=== PATIENT | male | born 1945 | race Caucasian/White ===

== ENCOUNTER → 2016-07-22 | Outpatient (CLI) | payer MEDICARE, OTHER ==
--- NOTE | 2016-07-31 23:56 | ECWPNPC ---
PATIENT NAME: SHANTEL REBOLLAR : 1945 GENDER: MALE VISIT DATE: 07/22/2016 DISCHARGE DATE: 07/22/16 1309 VISIT LOCKED DATE TIME: PHYSICIAN: MADINA CHENG RESOURCE: MADINA CHENG REASON FOR APPOINTMENT 1. BACK PAIN HISTORY OF PRESENT ILLNESS NEW PATIENT CONSULT: WHEN DID YOUR PAIN FIRST START? ____1966 , ACCIDENT AT WORK . BRIEFLY DESCRIBE HOW YOUR PAIN STARTED? LIFTING WHILE IN [place]. HOW DOES YOUR PAIN CHANGE WITH TIME? IT DOSENT. DOES YOUR PAIN AWAKEN YOU FROM SLEEP? NO. HOW MANY HOURS OF SLEEP DO YOU NORMALLY GET? 6 HOURS. ANY DIAGNOSTIC TESTING? BLOOD WORK, X-RAYS, MRI, CAT SCANS, EKG, STRESS TEST. FACILITY WHERE TESTS WERE DONE? ____[facility]. PAIN TREATMENT TREATMENT YES RELIEF FROM HEAT?YES CANCER HAVE YOU EVER HAD ANY TYPE OF CANCER?YES SITE OF CANCER? SKIN CANCER, FACE, SHOULDERS AND BACK NO. 71 YEAR OLD MALE PATIENT WITH HISTORY OF CHRONIC BACK PAIN. PATIENT DESCRIBES THE PAIN SHARP, TENDER, SORE, AND HAVING IT ALL THE TIME WITH A PAIN SCORE OF 4-5/10. PATIENT STATES HIS BACK PAIN STARTED MANY YEARS AGO WHEN HE WAS LIFTING SOMETHING AND HEARD A POP AND HAS HAD TROUBLE WITH BACK PAIN SINCE. PATIENT STATES THAT WITHIN THE LAST 4-5 MONTHS THE PAIN HAS BECOME SEVERE. AT THIS TIME THE PATIENT IS USING MELOXICAM, GABAPENTIN, AND HYDROCODONE WHICH HE STATES DOES AID IN PAIN RELIEF AND PRESCRIBED BY DR. LEAL. MR. REBOLLAR STATES THAT WALKING, STANDING, SITTING OR ANY ACTIVITY INCREASES THE PAIN IN HIS LOWER BACK. AT THIS TIME MEDICATION AND REST HELPS TO RELIEVE SOME OF THE PAIN. PATIENT DENIES UNEXPLAINABLE WEIGHT LOSS, FEVER, CHILLS, NEW CHANGES ON HIS URINARY OR BOWEL CONTROL. PAIN SCREENING: PATIENT HAS A COMPLAINT OF ACUTE OR CHRONIC PAIN YES FALL RISK SCREENING: SCREENING :NO FALLS IN THE PAST YEAR KEY INVENTORY: QUESTIONNAIRE ASSESSEDTBD SCORE VALUE CALCULATED TBD CURRENT MEDICATIONS TAKING VALSARTAN-HYDROCHLOROTHIAZIDE 320-12.5 MG TABLET 1 TABLET ORALLY ONCE A DAY TAKING ATORVASTATIN CALCIUM 40 MG TABLET 1 TABLET ORALLY ONCE A DAY TAKING MELOXICAM 15 MG TABLET 1 TABLET ORALLY ONCE A DAY TAKING GABAPENTIN 300 MG/6ML SOLUTION 6 ML ORALLY THREE TIMES A DAY TAKING HYDROCODONE-ACETAMINOPHEN 7.5-325 MG TABLET 1 TABLET NEEDED ORALLY EVERY 6 HRS TAKING ASPIRIN 500 MG TABLET DELAYED RELEASE 1 TABLET ORALLY BEFORE BEDTIME MEDICATION LIST REVIEWED AND RECONCILED WITH THE PATIENT PAST MEDICAL HISTORY HTN ARTHRITIS BACK PAIN ALLERGIES N.K.D.A. SURGICAL HISTORY BACK SURGERY 07/11 HERNIA 03/11 FAMILY HISTORY NO FAMILY HISTORY DOCUMENTED. SOCIAL HISTORY GENERAL: TOBACCO USE ARE YOU A:FORMER SMOKER RECREATIONAL DRUG USE DRUG USE?NO CAFFEINE CAFFEINE USE?NO EXERCISE: NO REGULAR EXERCISE. MARITAL STATUS: . OTHERS AT HOME: SPOUSE, OTHER RELATIVE GRANDSON. PETS: 5 CATS. MANDAEN: FAITH. LANGUAGE: SLOVENIAN. 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 PSYCHOLOGICAL HX TREATMENTNO PAIN CLINIC PFS, CLERGY, PUBLIC HEALTH REFERRALS CLERGY REFERRAL NEEDED?NO WAS THE PROVIDER NOTIFIED OF ANY PERTINENT INFO?NO PFS REFERRAL NEEDED?NO PUBLIC HEALTH REFERRAL NEEDED?NO PATIENT: ____. ADVANCED DIRECTIVES HEALTH CARE PROXY?YES NAME OF HCP SINCERE REBOLLAR CONTACT # FOR HCP [phone] DO YOU HAVE A DNR? YES, OUT OF HOSPITAL DNR IF YES, DO YOU HAVE A COPY WITH YOU? NO LIVING WILL? UNSURE POWER OF GETTER OPERATOR?NO RETIRED: YES. 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 HOSPITALIZATION/MAJOR DIAGNOSTIC PROCEDURE BACK SURGERY 07/11 REVIEW OF SYSTEMS CONSTITUTIONAL: ANY CHANGE IN YOUR MEDICAL CONDITION? NO . CHILLS NO . FEVER NO . INFECTION: DO YOU HAVE NEW INFECTIONS? NO . DO YOU HAVE HISTORY OF MRSA? NO . MUSCULOSKELETAL: ANY NEW PATTERNS OF PAIN OR NUMBNESS? NO . SYTEMIC LUPUS NO . GASTROENTEROLOGY: ANY NEW CHANGE IN BOWEL CONTROL? NO . BARRETTS ESOPHAGUS NO . CIRRHOSIS NO . HEPATITIS NO . LIVER FAILURE NO . ACID REFLUX NO . UNEXPLAINED WEIGHT LOSS NO . GENITOURINARY: ANY NEW CHANGE IN BLADDER CONTROL? NO . IS THERE A CHANCE YOU COULD BE ? NO . HEMATOLOGY/LYMPH: DO YOU TAKE ANY BLOOD THINNERS? (FOR EXAMPLE- COUMADIN, PLAVIX, AGGRENOX, PLATEL, PRADAXA, OR XARELTO) NO . WHEN WAS YOUR LAST DOSE? DATE: TIME: . LOW PLATELET COUNT NO . SICKLE CELL DISEASE NO . VON WILLIEBRANDS NO . FACTOR V LEIDEN NO . THALLASEMIA NO . ANEMIA NO . EASY BRUISING NO . NEUROLOGY: HAVE YOU FALLEN IN THE PAST 6 MONTHS? NO . ANY NEW EXTREMITY NUMBNESS OR WEAKNESS? NO . HEAD INJURY NO . DEMENTIA NO . CEREBRAL PALSY NO . MULTIPLE SCLEROSIS NO . DIZZINESS NO . HEADACHE NO . STROKES NO . VERTIGO NO . CARDIOLOGY: DO YOU HAVE A PACEMAKER OR DEFIBRILLATOR? NO . ANGINA NO . HEART ATTACK NO . HEART SURGERY NO . CONGESTIVE HEART FAILURE/FLUID OVERLOAD NO . CHEST PAIN NO . HIGH BLOOD PRESSURE NO . IRREGULAR HEART BEAT NO . RESPIRATORY: HAVE YOU BEEN SICK IN THE PAST WEEK? NO . FEVER NO . FLU LIKE SYMPTOMS? NO . CPAP NO . BYPAP NO . ASTHMA NO . EMPHYSEMA NO . CHRONIC LUNG DISEASES NO . SHORTNESS OF BREATH ON EXERTION NO . DO YOU USE ANY TYPE OF TOBACCO (SMOKE, SMOKELESS, CHEW)? NO . COUGH NO . SNORING NO . INTEGUMENTARY: DO YOU HAVE ANY RASHES OR OPEN SORES? NO . ALLERGIC/IMMUNO: ARE YOU ALLERGIC TO SHELLFISH OR IV DYE? NO . ANY NEW ALLERGIES? NO . PSYCHIATRIC: DO YOU HAVE THOUGHTS OF HURTING YOURSELF OR SOMEONE ELSE? NO . ARE YOU ABUSED, NEGLECTED, OR IN AN UNSAFE ENVIRONMENT? NO . ENDOCRINOLOGY: ARE YOU DIABETIC? NO . THYROID DISORDER NO . OTHER: DO YOU NEED ANY PRESCRIPTIONS? NO . IF YES, PLEASE LIST: ____ . ANY NEW PROBLEMS WITH YOUR MEDICATIONS? NO . WHEN DID YOU LAST EAT? ____ . WHEN DID YOU LAST DRINK? ____ . WHAT DID YOU LAST DRINK? ____ . NAME OF PERSON DRIVING YOU HOME? ____ . DO YOU HAVE ANY OTHER QUESTIONS OR CONCERNS NO . REVIEWED BY: PROVIDER: MADINA CHENG MD . VITAL SIGNS WT 223.2 LBS, HT 73 IN, BMI 29.44 INDEX, BP 153/92 MM HG, HR 78 /MIN, RR 18 /MIN, TEMP 97.8 F, OXYGEN SAT % 97%, NA INITIALS SC 11:38, REVIEWED BY: VD. EXAMINATION : PATIENT IS ALERT O X 3 AND COOPERATIVE. TENDERNESS IN THE LOWER BACK AND PARASPINAL MUSCLE GROUP. PATIENT LIMPING FROM THE RIGHT LEG. RIGHT LEG IS WEAKER THEN THE LEG AT EXTENSION AND FLEXION THEN THE LEFT. LEFT ANKLE SWOLLEN. MRI DONE ON 06/06/16 OF THE LUMBAR SPINE DONE ON CANAL STENOSIS, DISC BULGE FROM L1-L2 THROUGH L5-S1, AND FACET HYPERTROPHY. 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 REBOLLAR'S PAIN MANAGEMENT CASE. AT THIS TIME THE PATIENT WILL CONTINUE WITH THE SAME MEDICATION REGIME BEFORE. WE DISCUSSED WHERE THE PATIENT'S PAIN WAS LOCATED AND DISCUSSED THE MRI IS DETAIL. AT THIS TIME I BELIEVE THE PATIENT WOULD BENEFIT FROM EITHER A LUMBAR FACET BLOCK OR A SACROILIAC JOINT BLOCK BUT I WOULD LIKE TO VIEW THE PATIENT UNDER X-RAY TO BETTER ASSESS WHERE THE PAIN IS LOCATED. WE DISCUSSED THE RISKS, BENEFITS, AND ALTERNATIVES OF THE INJECTION AND THE PATIENT WOULD LIKE TO PROCEED AT THIS TIME. INSTRUCTIONS WERE GIVEN, QUESTIONS WERE ANSWERED, PATIENT REPORTS UNDERSTANDING AND AGREES WITH THE PLAN. I, ANIKET PEOPLES, DOCUMENTED THE ABOVE INFORMATION ACTING A SCRIBE FOR DR. CHENG. I HAVE REVIEWED THE ABOVE DOCUMENT, WRITTEN BY ANIKET VASQUEZ AND I VERIFY THAT IT IS ACCURATE. DEAR DR. MAZARIEGOS:THANK YOU FOR YOUR KIND REFERRAL OF MR. REBOLLAR. YOU WANT TO DISCUSS HER CASE WITH ME PLEASE CALL ME AT THE PAIN CENTER AT [phone]. SINCERELY,MADINA CHENG, [facility]. PROCEDURE CODES FA211 ESTABILISHED PATIENT [facility] CHARGE G8427 DOC MEDS VERIFIED W/PT OR RE G8730 PAIN ASSESS POS TOOL F/U PLAN DOC FOLLOW UP LFBT VS SIJ ELECTRONICALLY SIGNED BY MADINA CHENG MD ON 07/31/2016 AT 08:03 PM EST DISCLAIMER : THIS IS A VISIT SUMMARY EXTRACTED FROM THE [employer] CHART. IT IS NOT A COPY OF THE [employer] PROGRESS NOTE. MTDD
== END ==
LOC: M PAIN 11:20
PROVIDERS: ATTEND Anesthesiology
DX: G89.29 Other chronic pain (principal); M96.1 Postlaminectomy syndrome, not elsewhere classified; M46.1 Sacroiliitis, not elsewhere classified; M51.16 Intervertebral disc disorders with radiculopathy, lumbar region; M51.17 Intervertebral disc disorders with radiculopathy, lumbosacral region; M47.816 Spondylosis without myelopathy or radiculopathy, lumbar region; M47.817 Spondylosis without myelopathy or radiculopathy, lumbosacral region; I10 Essential (primary) hypertension; M19.90 Unspecified osteoarthritis, unspecified site; Z79.891 Long term (current) use of opiate analgesic; Z79.899 Other long term (current) drug therapy; Z79.82 Long term (current) use of aspirin

== ENCOUNTER → 2016-08-10 | Outpatient (CLI) | payer MEDICARE, OTHER ==
[~2016-08-10] MED LIST: BUPIVACAINE HCL 0.25% 30 ML VIAL As Ordered ONE; ISOVUE-M 300 61% 15ML VIAL (Q9967) As Ordered ONE; LIDOCAINE 1% SDV INJ 30 ML VIAL As Ordered ONE; TRIAMCINOLONE ACETONIDE SUSP 40 MG/ML VIAL (J3301) As Ordered ONE; diazePAM 5 MG TAB As Ordered ONE; oxyCODONE 5MG TAB As Ordered ONE
--- NOTE | 2016-08-10 13:27 | REP ---
FLUOROSCOPIC GUIDANCE FOR LUMBAR FACET BLOCK: 08/10/2016. Clinical history: Low back pain. Findings: A single image from C-arm fluoroscopy provided to Dr. Rush of the pain clinic for lumbar facet injection. The oblique image shows a needle adjacent to the L4-5 and L5-S1 facet with contrast marking the injection at those facets for therapeutic block. Fluoroscopy time: 38 seconds. Signed by Avni Correa MD 08/10/2016 01:55 P
--- NOTE | 2016-08-13 23:35 | ECWPNPC ---
PATIENT NAME: SHANTEL REBOLLAR : 1945 GENDER: MALE VISIT DATE: 08/10/2016 DISCHARGE DATE: 08/10/16 1308 VISIT LOCKED DATE TIME: PHYSICIAN: MADINA CHENG RESOURCE: MADINA CHENG REASON FOR APPOINTMENT 1. SIJ VS LFBT HISTORY OF PRESENT ILLNESS HISTORY OF PRESENT ILLNESS: PAIN THE PATIENT DESCRIBES THE PAIN... FALL RISK SCREENING: SCREENING :NO FALLS IN THE PAST YEAR CURRENT MEDICATIONS TAKING VALSARTAN-HYDROCHLOROTHIAZIDE 320-12.5 MG TABLET 1 TABLET ORALLY ONCE A DAY, NOTES: 08-10-16599 TAKING ATORVASTATIN CALCIUM 40 MG TABLET 1 TABLET ORALLY ONCE A DAY, NOTES: 08-10-16599 TAKING MELOXICAM 15 MG TABLET 1 TABLET ORALLY ONCE A DAY, NOTES: 08-10-16599 TAKING GABAPENTIN 300 MG/6ML SOLUTION 6 ML ORALLY THREE TIMES A DAY, NOTES: 08-10-16599 TAKING HYDROCODONE-ACETAMINOPHEN 7.5-325 MG TABLET 1 TABLET NEEDED ORALLY EVERY 6 HRS, NOTES: 08-10-16599 TAKING ASPIRIN 500 MG TABLET DELAYED RELEASE 1 TABLET ORALLY BEFORE BEDTIME, NOTES: 08-08-16 MEDICATION LIST REVIEWED AND RECONCILED WITH THE PATIENT PAST MEDICAL HISTORY HTN ARTHRITIS BACK PAIN ALLERGIES N.K.D.A. SURGICAL HISTORY BACK SURGERY 07/11 HERNIA 03/11 SOCIAL HISTORY GENERAL: TOBACCO USE ARE YOU A:NONSMOKER LEARNING BARRIERS / SPECIAL NEEDS ORIENTED TO PLAN OF CARE: PATIENT, PAIN MANAGEMENT PATIENT, ORIENTED TO PLAN OF CARE: PATIENT, PAIN MANAGEMENT PATIENT. NEW PATIENT PAIN DIARY TODAY'S VISITNOTES FROM 0-10, WHAT LEVEL IS YOUR PAIN TODAY?0 PAIN CLINIC PFS, CLERGY, PUBLIC HEALTH REFERRALS PFS REFERRAL NEEDED?NO CLERGY REFERRAL NEEDED?NO PUBLIC HEALTH REFERRAL NEEDED?NO WAS THE PROVIDER NOTIFIED OF ANY PERTINENT INFO?NO PFS REFERRAL NEEDED?NO CLERGY REFERRAL NEEDED?NO PUBLIC HEALTH REFERRAL NEEDED?NO WAS THE PROVIDER NOTIFIED OF ANY PERTINENT INFO?NO HOSPITALIZATION/MAJOR DIAGNOSTIC PROCEDURE BACK SURGERY 07/11 REVIEW OF SYSTEMS CONSTITUTIONAL: ANY CHANGE IN YOUR MEDICAL CONDITION? NO . CHILLS NO . FEVER NO . INFECTION: DO YOU HAVE NEW INFECTIONS? NO . DO YOU HAVE HISTORY OF MRSA? NO . MUSCULOSKELETAL: ANY NEW PATTERNS OF PAIN OR NUMBNESS? NO . GASTROENTEROLOGY: ANY NEW CHANGE IN BOWEL CONTROL? NO . GENITOURINARY: ANY NEW CHANGE IN BLADDER CONTROL? NO . IS THERE A CHANCE YOU COULD BE ? NO . HEMATOLOGY/LYMPH: DO YOU TAKE ANY BLOOD THINNERS? (FOR EXAMPLE- COUMADIN, PLAVIX, AGGRENOX, PLATEL, PRADAXA, OR XARELTO) NO . WHEN WAS YOUR LAST DOSE? DATE: TIME: . NEUROLOGY: HAVE YOU FALLEN IN THE PAST 6 MONTHS? NO . ANY NEW EXTREMITY NUMBNESS OR WEAKNESS? NO . CARDIOLOGY: DO YOU HAVE A PACEMAKER OR DEFIBRILLATOR? NO . RESPIRATORY: HAVE YOU BEEN SICK IN THE PAST WEEK? NO . FEVER NO . FLU LIKE SYMPTOMS? NO . COUGH NO . INTEGUMENTARY: DO YOU HAVE ANY RASHES OR OPEN SORES? NO . ALLERGIC/IMMUNO: ARE YOU ALLERGIC TO SHELLFISH OR IV DYE? NO . ANY NEW ALLERGIES? NO . PSYCHIATRIC: DO YOU HAVE THOUGHTS OF HURTING YOURSELF OR SOMEONE ELSE? NO . ARE YOU ABUSED, NEGLECTED, OR IN AN UNSAFE ENVIRONMENT? NO . ENDOCRINOLOGY: ARE YOU DIABETIC? NO . OTHER: DO YOU NEED ANY PRESCRIPTIONS? NO . IF YES, PLEASE LIST: ____ . ANY NEW PROBLEMS WITH YOUR MEDICATIONS? NO . WHEN DID YOU LAST EAT? ____08-09-17 . WHEN DID YOU LAST DRINK? ____15- 0600 . WHAT DID YOU LAST DRINK? ____COFFEE BLACK . NAME OF PERSON DRIVING YOU HOME? ____ . DO YOU HAVE ANY OTHER QUESTIONS OR CONCERNS NO . REVIEWED BY: PROVIDER: . VITAL SIGNS WT 232.2 LBS, HT 73 IN, BMI 30.63 INDEX, BP 174/102 MM HG, REPEAT BP 151/99 MANUAL, HR 70 /MIN, RR 18 /MIN, TEMP 95.6 F, OXYGEN SAT % 96%, REVIEWED BY: KG. ASSESSMENTS SPONDYLOSIS WITHOUT MYELOPATHY OR RADICULOPATHY, LUMBAR REGION - M47.816 (PRIMARY) SPONDYLOSIS WITHOUT MYELOPATHY OR RADICULOPATHY, LUMBOSACRAL REGION - M47.817 PROCEDURES PN LUMBAR FACET BLOCK THERAPEUTIC PRE PROCEDURE DIAGNOSIS LUMBAR SPONDYLOSIS, LUMBOSACRAL SPONDYLOSIS POST PROCEDURE DIAGNOSIS LUMBAR SPONDYLOSIS, LUMBOSACRAL SPONDYLOSIS PROCEDURE RIGHT L4-L5 AND RIGHT L5-S1 LUMBAR FACET THERAPEUTIC BLOCK SURGEON DR. MADINA CHENG KITCHEN PORTER NONE ANESTHESIA LOCAL PRE PROCEDURE NOTE THE PATIENT HAS A HISTORY OF CHRONIC LOW BACK PAIN. I EVALUATE THE PATIENT AND REVIEWED THE CHART. I WENT OVER THE RISKS, ALTERNATIVES, AND BENEFITS ASSOCIATED WITH THIS PROCEDURE. THE PATIENT WOULD LIKE TO PROCEED AND GIVE CONSENT TO PERFORMED THE PROCEDURE. THE PATIENT DENIES UNEXPLAINABLE WEIGHT LOSS, FEVER, CHILLS, OR NEW CHANGES IN URINARY OR BOWEL CONTROL DESCRIPTION OF PROCEDURE THE PATIENT WAS BROUGHT TO THE PROCEDURE ROOM AND PLACED IN THE PRONE POSITION. THE LUMBOSACRAL AREA WAS CLEANED WITH CHLORAPREP SOLUTION AND DRAPED ASEPTICALLY. THE PROCEDURE WAS DONE UNDER STERILE CONDITIONS. I CHECKED LATERALITY AND THE LEVEL WHERE THE PROCEDURE WAS GOING TO BE PERFORMED WITH THE PATIENT AND THE SUPPORTING STAFF AT THE MOMENT OF THE TIME OUT IN THE PROCEDURE ROOM. UNDER FLUOROSCOPIC GUIDANCE, THE TARGET POINT WAS SELECTED AT THE RIGHT L4-L5 AND RIGHT L5-S1 FACET JOINT. TARGET POINT WAS SELECTED AFTER LATERAL ROTATION AND TILT OF THE MAGNIFIER OF THE C-ARM. LIDOCAINE 0.5% WAS USED TO NUMB THE SKIN AND THE SUBCUTANEOUS TISSUE BELOW IT. SPINAL NEEDLES, 22-GAUGE, WERE ADVANCED UNDER FLUOROSCOPIC GUIDANCE AND FOLLOWING PATIENT FEEDBACK UNTIL THE TARGETS WERE TOUCHED. THE POSITION OF THE NEEDLES WAS VERIFIED WITH AP AND LATERAL VIEWS. AFTER PROPER POSITION OF THE NEEDLES WAS ACHIEVED, ISOVUE-M DYE 30% 0.1 ML WAS INJECTED SHOWING ADEQUATE SPREAD OF THE DYE. THEN A SOLUTION OF 1.9 ML OF BUPIVACAINE 0.125% OF KENALOG 10 MG WAS INJECTED AT EACH SITE. THERE WAS NO EVIDENCE OF BLOOD, PARESTHESIA OR CEREBROSPINAL FLUID DURING THE PROCEDURE. THE PATIENT WAS SENT TO THE RECOVERY ROOM. THE PATIENT WAS MOVING THE EXTREMITIES AND DOING WELL. THERE WAS NO COMPLICATION DURING THE PROCEDURE. FLUOROSCOPY TIME WAS 38 SECONDS POST PROCEDURE NOTE THE PATIENT WILL BE SEEN IN A FOLLOW UP IN THE NEXT FEW WEEKS. INSTRUCTIONS WERE GIVEN, QUESTIONS WERE ANSWERED, AND THE PATIENT EXPRESSED UNDERSTANDING AND AGREES WITH THE PLAN. I, ANIKET PEOPLES, DOCUMENTED THE ABOVE INFORMATION ACTING A SCRIBE FOR DR. CHENG. I, DR. CHENG, HAVE REVIEWED THE ABOVE DOCUMENT, SCRIBED BY ANIKET PEOPLES, AND I VERIFY THAT IT IS ACCURATE DIAGNOSTIC IMAGING [facility] FACET BLOCK (PAIN)[id number] PROCEDURE CODES 12281 INJ PARAVERT F JNT L/S 1 LEV 63645 INJ PARAVERT F JNT L/S 2 LEV 6045F RADXPS IN END [id number] PXD DISPOSITION & COMMUNICATION FOLLOW UP 3 WEEKS ELECTRONICALLY SIGNED BY MADINA CHENG MD ON 08/13/2016 AT 09:21 PM EST DISCLAIMER : THIS IS A VISIT SUMMARY EXTRACTED FROM THE [employer] CHART. IT IS NOT A COPY OF THE [employer] PROGRESS NOTE. MTDD
== END ==
LOC: M PAIN 11:10
PROVIDERS: ATTEND Anesthesiology
DX: G89.29 Other chronic pain (principal); M47.816 Spondylosis without myelopathy or radiculopathy, lumbar region; M47.817 Spondylosis without myelopathy or radiculopathy, lumbosacral region; I10 Essential (primary) hypertension; M19.90 Unspecified osteoarthritis, unspecified site; Z79.891 Long term (current) use of opiate analgesic; Z79.82 Long term (current) use of aspirin; Z79.899 Other long term (current) drug therapy
CPT/HCPCS: 64493; 64494; J3301; Q9967

== ENCOUNTER → 2016-09-02 | Outpatient (CLI) | payer MEDICARE, OTHER ==
--- NOTE | 2016-09-03 01:06 | ECWPNPC ---
PATIENT NAME: SHANTEL REBOLLAR : 1945 GENDER: MALE VISIT DATE: 09/02/2016 DISCHARGE DATE: 09/02/16 1214 VISIT LOCKED DATE TIME: PHYSICIAN: GUTIERREZ ORELLANA RESOURCE: GUTIERREZ ORELLANA REASON FOR APPOINTMENT 1. POST PROCEDURE HISTORY OF PRESENT ILLNESS HISTORY OF PRESENT ILLNESS: HERE FOR POST PROCEUREF/U.HAD RIGHT L4/5-L5/S1 THERAPEUTIC FACET BLOCK ON 08-10-16.REPORTS IMPROVEMENT IN PAIN POST PROCEDURE.RATING PAIN VAS 4/10.PAIN IS LOCATED RIGHT LOW BACK WITH PARATHESIA IN RIGHT ANTERIOR THIGH.MRI L/S SPINE 04-15-16 REVIEWED.SHOWING MULTI LEVEL ARTHROPATHY AND STENOSIS.DISCUSSED DIAGNOSTIC FACET BLOCK AND RADIOFREQUENCY PROCEDURE.DESCRIBES PAIN CONSTANT ACHING AND TENDERNESS RIGHT LOW BACK. PAIN THE PATIENT DESCRIBES THE PAIN... FALL RISK SCREENING: SCREENING :NO FALLS IN THE PAST YEAR CURRENT MEDICATIONS TAKING VALSARTAN-HYDROCHLOROTHIAZIDE 320-12.5 MG TABLET 1 TABLET ORALLY ONCE A DAY TAKING ATORVASTATIN CALCIUM 40 MG TABLET 1 TABLET ORALLY ONCE A DAY TAKING MELOXICAM 15 MG TABLET 1 TABLET ORALLY ONCE A DAY TAKING GABAPENTIN 300 MG/6ML SOLUTION 6 ML ORALLY THREE TIMES A DAY TAKING HYDROCODONE-ACETAMINOPHEN 7.5-325 MG TABLET 1 TABLET NEEDED ORALLY EVERY 6 HRS TAKING ASPIRIN 500 MG TABLET DELAYED RELEASE 1 TABLET ORALLY BEFORE BEDTIME PAST MEDICAL HISTORY HTN ARTHRITIS BACK PAIN SOCIAL HISTORY GENERAL: TOBACCO USE ARE YOU A:NONSMOKER LEARNING BARRIERS / SPECIAL NEEDS ORIENTED TO PLAN OF CARE: PATIENT, PAIN MANAGEMENT PATIENT, ORIENTED TO PLAN OF CARE: PATIENT, PAIN MANAGEMENT PATIENT. NEW PATIENT PAIN DIARY TODAY'S VISITNOTES FROM 0-10, WHAT LEVEL IS YOUR PAIN TODAY?0 PAIN CLINIC PFS, CLERGY, PUBLIC HEALTH REFERRALS PFS REFERRAL NEEDED?NO CLERGY REFERRAL NEEDED?NO PUBLIC HEALTH REFERRAL NEEDED?NO WAS THE PROVIDER NOTIFIED OF ANY PERTINENT INFO?NO PFS REFERRAL NEEDED?NO CLERGY REFERRAL NEEDED?NO PUBLIC HEALTH REFERRAL NEEDED?NO WAS THE PROVIDER NOTIFIED OF ANY PERTINENT INFO?NO REVIEW OF SYSTEMS CONSTITUTIONAL: ANY CHANGE IN YOUR MEDICAL CONDITION? NO . RECENT ILLNESS DENIES . CHILLS NO . FEVER NO . WEIGHT LOSS DENIES . INFECTION: DO YOU HAVE NEW INFECTIONS? NO . DO YOU HAVE HISTORY OF MRSA? NO . MUSCULOSKELETAL: ANY NEW PATTERNS OF PAIN OR NUMBNESS? NO . GASTROENTEROLOGY: ANY NEW CHANGE IN BOWEL CONTROL? NO . GENITOURINARY: ANY NEW CHANGE IN BLADDER CONTROL? NO . IS THERE A CHANCE YOU COULD BE ? NO . HEMATOLOGY/LYMPH: DO YOU TAKE ANY BLOOD THINNERS? (FOR EXAMPLE- COUMADIN, PLAVIX, AGGRENOX, PLATEL, PRADAXA, OR XARELTO) NO . WHEN WAS YOUR LAST DOSE? DATE: TIME: . NEUROLOGY: HAVE YOU FALLEN IN THE PAST 6 MONTHS? NO . ANY NEW EXTREMITY NUMBNESS OR WEAKNESS? NO . CARDIOLOGY: DO YOU HAVE A PACEMAKER OR DEFIBRILLATOR? NO . CHEST PAIN DENIES . SHORTNESS OF BREATH DENIES . RESPIRATORY: HAVE YOU BEEN SICK IN THE PAST WEEK? NO . FEVER NO . FLU LIKE SYMPTOMS? NO . COUGH NO, DENIES . SHORTNESS OF BREATH DENIES . INTEGUMENTARY: DO YOU HAVE ANY RASHES OR OPEN SORES? NO . ALLERGIC/IMMUNO: ARE YOU ALLERGIC TO SHELLFISH OR IV DYE? NO . ANY NEW ALLERGIES? NO . PSYCHIATRIC: DO YOU HAVE THOUGHTS OF HURTING YOURSELF OR SOMEONE ELSE? NO . ARE YOU ABUSED, NEGLECTED, OR IN AN UNSAFE ENVIRONMENT? NO . ENDOCRINOLOGY: ARE YOU DIABETIC? NO . OTHER: DO YOU NEED ANY PRESCRIPTIONS? NO . IF YES, PLEASE LIST: ____ . ANY NEW PROBLEMS WITH YOUR MEDICATIONS? NO . WHEN DID YOU LAST EAT? ____ . WHEN DID YOU LAST DRINK? ____ . WHAT DID YOU LAST DRINK? ____ . NAME OF PERSON DRIVING YOU HOME? ____ . DO YOU HAVE ANY OTHER QUESTIONS OR CONCERNS YES WOULD LIKE TO HAVE ANOTHER PROCEDURE . REVIEWED BY: PROVIDER: GUTIERREZ SPRINGER . VITAL SIGNS WT 220.8 LBS, HT 73 IN, BMI 29.13 INDEX, BP 133/84 MM HG, HR 74 /MIN, RR 18 /MIN, TEMP 96.7 F, OXYGEN SAT % 98%, NA INITIALS SC 11:32, REVIEWED BY: KG. EXAMINATION GENERAL EXAMINATION: LUNGS:LUNG SOUNDS ARE CLEAR. HEART:HEART RATE REGULAR. MUSCULOSKELETAL:*, MUSCLE STRENGTH TESTING 5/5 BLE., PALPATION: NEGATIVE FOR PAIN OVER L/S SPINE. NEGATIVE FOR PAIN OVER L/S PARASPINALS. DIAGNOSTIC:MRI L/S SPINE -[id number]-REVIEWED.. ASSESSMENTS SPONDYLOSIS OF LUMBAR REGION WITHOUT MYELOPATHY OR RADICULOPATHY - M47.816 (PRIMARY) POSTLAMINECTOMY SYNDROME, NOT ELSEWHERE CLASSIFIED - M96.1 (PRIMARY) TREATMENT SPONDYLOSIS OF LUMBAR REGION WITHOUT MYELOPATHY OR RADICULOPATHY INJECTION FACET JOINT/NERVE GUTIERREZ PERALES 09/02/2016 12:04:43 PM > DIAGNOSTIC L4/5-L5/S1 NOTES: [email or web address] LUMBAR RADIOFREQUENCY...LUMBAR FACET BLOCK. PROCEDURE CODES FA211 ESTABILISHED PATIENT [facility] FAC[facility] CHARGE G8730 PAIN ASSESS POS TOOL F/U PLAN DOC G8427 DOC MEDS VERIFIED W/PT OR RE DISPOSITION & COMMUNICATION FOLLOW UP 2WK POST (REASON: DIAGNOSTIC L4/5-L5/S1 BLOCK) ELECTRONICALLY SIGNED BY RACHEAL PARADA ON 09/02/2016 AT 12:52 PM EST DISCLAIMER : THIS IS A VISIT SUMMARY EXTRACTED FROM THE [employer] CHART. IT IS NOT A COPY OF THE [employer] PROGRESS NOTE. CLARIBEL
== END ==
LOC: M PAIN 11:20
PROVIDERS: ATTEND Nurse Practitioner Family
DX: Z09 Encounter for follow-up examination after completed treatment for conditions other than malignant neoplasm (principal); G89.29 Other chronic pain; M47.816 Spondylosis without myelopathy or radiculopathy, lumbar region; M96.1 Postlaminectomy syndrome, not elsewhere classified; I10 Essential (primary) hypertension; M19.90 Unspecified osteoarthritis, unspecified site; Z79.82 Long term (current) use of aspirin; Z79.899 Other long term (current) drug therapy

== ENCOUNTER → 2016-09-22 | Outpatient (CLI) | payer MEDICARE, OTHER ==
[~2016-09-22] MED LIST changes: -TRIAMCINOLONE ACETONIDE SUSP 40 MG/ML VIAL (J3301) As Ordered ONE; -diazePAM 5 MG TAB As Ordered ONE; -oxyCODONE 5MG TAB As Ordered ONE
== END ==
LOC: M PAIN 09:00
PROVIDERS: ATTEND Anesthesiology
DX: Z53.29 Procedure and treatment not carried out because of patient's decision for other reasons (principal)

== ENCOUNTER → 2016-10-04 | Outpatient (CLI) | payer MEDICARE, OTHER ==
--- NOTE | 2016-10-04 12:25 | REP ---
PARTIAL LUMBAR SPINE SERIES: Two views. HISTORY: Lumbar facet block for pain. 36 seconds of fluoroscopy time is reported. FINDINGS: A sequence of two last image hold fluoroscopic spot radiographs of the lumbar spine document various needle positions and contrast injection associated with lumbar facet injection procedure. Signed by Jace Amezcua MD 10/04/2016 02:55 P
--- NOTE | 2016-10-09 23:04 | ECWPNPC ---
PATIENT NAME: SHANTEL REBOLLAR : 1945 GENDER: MALE VISIT DATE: 10/04/2016 DISCHARGE DATE: 10/04/16 1132 VISIT LOCKED DATE TIME: PHYSICIAN: MADINA CHENG RESOURCE: MADINA CHENG REASON FOR APPOINTMENT 1. FACET BLOCK HISTORY OF PRESENT ILLNESS HISTORY OF PRESENT ILLNESS: PAIN THE PATIENT DESCRIBES THE PAIN... FALL RISK SCREENING: SCREENING :NO FALLS IN THE PAST YEAR CURRENT MEDICATIONS TAKING VALSARTAN-HYDROCHLOROTHIAZIDE 320-12.5 MG TABLET 1 TABLET ORALLY ONCE A DAY, NOTES: 10/03/16599 TAKING ATORVASTATIN CALCIUM 40 MG TABLET 1 TABLET ORALLY ONCE A DAY, NOTES: 10/03/16599 TAKING MELOXICAM 15 MG TABLET 1 TABLET ORALLY ONCE A DAY, NOTES: 10/03/16599 TAKING GABAPENTIN 300 MG/6ML SOLUTION 6 ML ORALLY THREE TIMES A DAY, NOTES: 10/03/16599 TAKING HYDROCODONE-ACETAMINOPHEN 7.5-325 MG TABLET 1 TABLET NEEDED ORALLY EVERY 6 HRS, NOTES: 10/03/16599 TAKING ASPIRIN 500 MG TABLET DELAYED RELEASE 1 TABLET ORALLY BEFORE BEDTIME, NOTES: 09/29/16 MEDICATION LIST REVIEWED AND RECONCILED WITH THE PATIENT PAST MEDICAL HISTORY HTN ARTHRITIS BACK PAIN ALLERGIES N.K.D.A. SOCIAL HISTORY GENERAL: PAIN CLINIC PFS, CLERGY, PUBLIC HEALTH REFERRALS CLERGY REFERRAL NEEDED?NO WAS THE PROVIDER NOTIFIED OF ANY PERTINENT INFO?NO PFS REFERRAL NEEDED?NO PUBLIC HEALTH REFERRAL NEEDED?NO PATIENT: ____. REVIEW OF SYSTEMS CONSTITUTIONAL: ANY CHANGE IN YOUR MEDICAL CONDITION? NO . CHILLS NO . FEVER NO . INFECTION: DO YOU HAVE NEW INFECTIONS? NO . DO YOU HAVE HISTORY OF MRSA? NO . MUSCULOSKELETAL: ANY NEW PATTERNS OF PAIN OR NUMBNESS? NO . GASTROENTEROLOGY: ANY NEW CHANGE IN BOWEL CONTROL? NO . GENITOURINARY: ANY NEW CHANGE IN BLADDER CONTROL? NO . IS THERE A CHANCE YOU COULD BE ? NO . HEMATOLOGY/LYMPH: DO YOU TAKE ANY BLOOD THINNERS? (FOR EXAMPLE- COUMADIN, PLAVIX, AGGRENOX, PLATEL, PRADAXA, OR XARELTO) NO . WHEN WAS YOUR LAST DOSE? DATE: TIME: . NEUROLOGY: HAVE YOU FALLEN IN THE PAST 6 MONTHS? NO . ANY NEW EXTREMITY NUMBNESS OR WEAKNESS? NO . CARDIOLOGY: DO YOU HAVE A PACEMAKER OR DEFIBRILLATOR? NO . RESPIRATORY: HAVE YOU BEEN SICK IN THE PAST WEEK? NO . FEVER NO . FLU LIKE SYMPTOMS? NO . COUGH NO . INTEGUMENTARY: DO YOU HAVE ANY RASHES OR OPEN SORES? NO . ALLERGIC/IMMUNO: ARE YOU ALLERGIC TO SHELLFISH OR IV DYE? NO . ANY NEW ALLERGIES? NO . PSYCHIATRIC: DO YOU HAVE THOUGHTS OF HURTING YOURSELF OR SOMEONE ELSE? NO . ARE YOU ABUSED, NEGLECTED, OR IN AN UNSAFE ENVIRONMENT? NO . ENDOCRINOLOGY: ARE YOU DIABETIC? NO . OTHER: DO YOU NEED ANY PRESCRIPTIONS? NO . IF YES, PLEASE LIST: ____ . ANY NEW PROBLEMS WITH YOUR MEDICATIONS? NO . WHEN DID YOU LAST EAT? ____10/03/16 2400 . WHEN DID YOU LAST DRINK? ____10/04/16 0400 . WHAT DID YOU LAST DRINK? ____WATER . NAME OF PERSON DRIVING YOU HOME? ____SYLVIA . DO YOU HAVE ANY OTHER QUESTIONS OR CONCERNS NO . REVIEWED BY: PROVIDER: . VITAL SIGNS WT 225.0 LBS, HT 73 IN, BMI 29.68 INDEX, BP 163/90 MM HG, HR 71 /MIN, RR 18 /MIN, TEMP 98.7 F, OXYGEN SAT % 96%, SAFE IN ENV? (Y/N) YES, NA INITIALS [id number], REVIEWED BY: SADE. ASSESSMENTS SPONDYLOSIS WITHOUT MYELOPATHY OR RADICULOPATHY, LUMBAR REGION - M47.816 (PRIMARY) SPONDYLOSIS WITHOUT MYELOPATHY OR RADICULOPATHY, LUMBOSACRAL REGION - M47.817 PROCEDURES PN LUMBAR FACET BLOCK DIAGNOSTIC PRE PROCEDURE DIAGNOSIS LUMBAR SPONDYLOSIS, LUMBOSACRAL SPONDYLOSIS POST PROCEDURE DIAGNOSIS LUMBAR SPONDYLOSIS, LUMBOSACRAL SPONDYLOSIS PROCEDURE RIGHT L4-L5 AND RIGHT L5-S1 FACET BLOCK DIAGNOSTIC NUMBER [address] MADINA CHENG CERTIFIED PHYSICAL THERAPIST ASSISTANT NONE ANESTHESIA LOCAL PRE PROCEDURE NOTE THE PATIENT WITH HISTORY OF CHRONIC LOW BACK PAIN. I EVALUATED THE PATIENT AND REVIEWED THE CHART. I WENT OVER THE RISKS, ALTERNATIVES, AND BENEFITS ASSOCIATED WITH THIS PROCEDURE. THE PATIENT WOULD LIKE TO PROCEED AND GAVE CONSENT TO PERFORM THE PROCEDURE. AGREED WITH THE PATIENT WE ARE DOING THIS PROCEDURE TO DETERMINE IF THE PATIENT IS A CANDIDATE FOR A RADIOFREQUENCY ABLATION OF THE FACETS JOINTS. THE PATIENT DENIES UNEXPLAINABLE WEIGHT LOSS, FEVER, CHILLS, OR NEW CHANGES IN URINARY OR BOWEL CONTROL DESCRIPTION OF PROCEDURE THE PATIENT WAS BROUGHT TO THE PROCEDURE ROOM AND PLACED IN THE PRONE POSITION. THE LUMBOSACRAL AREA WAS CLEANED WITH CHLORAPREP SOLUTION AND DRAPED ASEPTICALLY. THE PROCEDURE WAS DONE UNDER STERILE CONDITIONS. I CHECKED LATERALITY AND THE LEVEL WHERE THE PROCEDURE WAS GOING TO BE PERFORMED WITH THE PATIENT AND THE SUPPORTING STAFF AT THE MOMENT OF THE TIME OUT IN THE PROCEDURE ROOM. UNDER FLUOROSCOPIC GUIDANCE, TARGETS WERE SELECTED AT THE INTERSECTION OF THE RIGHT TRANSVERSE PROCESS OF L4, L5 AND ALA OF S1 WITH ITS RESPECTIVE SUPERIOR ARTICULAR PROCESS. LIDOCAINE WAS USED TO NUMB THE SKIN AND THE SUBCUTANEOUS TISSUE BELOW IT. SPINAL NEEDLE, 22-GAUGE WAS ADVANCED UNDER FLUOROSCOPIC GUIDANCE AND FOLLOWING PATIENT FEEDBACK UNTIL THE TARGETS WERE REACHED. POSITION OF THE NEEDLES WAS VERIFIED WITH AP AND LATERAL VIEWS. AFTER PROPER POSITION OF THE NEEDLES WAS ACHIEVED, ISOVUE-M DYE 30% 0.1 ML WAS INJECTED AT EACH SITE SHOWING ADEQUATE SPREAD OF THE DYE. THEN A SOLUTION OF 0.4 ML OF BUPIVACAINE 0.25% WAS INJECTED AT EACH SITE. THERE WAS NO EVIDENCE OF BLOOD, PARESTHESIA OR CEREBROSPINAL FLUID DURING THE PROCEDURE. THE PATIENT WAS SENT TO THE RECOVERY ROOM. THE PATIENT WAS MOVING THE EXTREMITIES AND DOING WELL. THERE WAS NO COMPLICATION DURING THE PROCEDURE. FLUOROSCOPY TIME WAS 36 SECONDS POST PROCEDURE NOTE THE PATIENT WILL DOCUMENT HIS PAIN LEVEL AND RESPONSE TO THIS PROCEDURE EVERY 30 MINUTES. THE PATIENT WILL BE SEEN IN A FOLLOW UP IN THE NEXT FEW WEEKS. FURTHER DETERMINATION FOR HIS CASE WILL BE DONE AT THE NEXT VISIT. INSTRUCTIONS WERE GIVEN, QUESTIONS WERE ANSWERED, AND THE PATIENT EXPRESSED UNDERSTANDING AND AGREED WITH THE PLAN. I, ANIKET PEOPLES, DOCUMENTED THE ABOVE INFORMATION ACTING A SCRIBE FOR DR. CHENG. I, DR. CHENG, HAVE REVIEWED THE ABOVE DOCUMENT, SCRIBED BY ANIKET PEOPLES, AND I VERIFY THAT IT IS ACCURATE DIAGNOSTIC IMAGING [facility] FACET BLOCK (PAIN)[id number] PROCEDURE CODES 71807 INJ PARAVERT F JNT L/S 1 LEV 63290 INJ PARAVERT F JNT L/S 2 LEV 6045F RADXPS IN END [id number] PXD DISPOSITION & COMMUNICATION FOLLOW UP 3 WEEKS ELECTRONICALLY SIGNED BY MADINA CHENG MD ON 10/09/2016 AT 05:34 PM EDT DISCLAIMER : THIS IS A VISIT SUMMARY EXTRACTED FROM THE [email or web address] CHART. IT IS NOT A COPY OF THE [email or web address] PROGRESS NOTE. MTDD
== END ==
LOC: M PAIN 09:30
PROVIDERS: ATTEND Anesthesiology
DX: G89.29 Other chronic pain (principal); M47.816 Spondylosis without myelopathy or radiculopathy, lumbar region; M47.817 Spondylosis without myelopathy or radiculopathy, lumbosacral region; I10 Essential (primary) hypertension; M19.90 Unspecified osteoarthritis, unspecified site; Z79.82 Long term (current) use of aspirin; Z79.899 Other long term (current) drug therapy
CPT/HCPCS: 64493; 64494; Q9967

== ENCOUNTER → 2016-10-07 | Outpatient (CLI) | payer MEDICARE, OTHER ==
--- NOTE | 2016-10-16 23:27 | ECWPNPC ---
PATIENT NAME: SHANTEL REBOLLAR : 1945 GENDER: MALE VISIT DATE: 10/07/2016 DISCHARGE DATE: 10/07/16 1356 VISIT LOCKED DATE TIME: PHYSICIAN: MADINA CHENG RESOURCE: MADINA CHENG REASON FOR APPOINTMENT 1. LOW BACK PAIN HISTORY OF PRESENT ILLNESS HISTORY OF PRESENT ILLNESS: PAIN THE PATIENT DESCRIBES THE PAIN... 71 YEAR OLD MALE PATIENT WITH HISTORY OF CHRONIC LOW BACK PAIN. PATIENT DESCRIBES THE PAIN TENDER AND SORE WITH THE PAIN COMING AND GOING WITH A PAIN SCORE OF 3/10. PATIENT RECEIVED A LUMBAR FACET BLOCK ON 10/04/16 AND STATES THAT HIS SPINE PAIN IS GONE BUT HE IS HAVING SOME REDNESS AND TENDERNESS ABOUT THE INJECTION SITE. PATIENT IS CURRENTLY USING HYDROCODONE, GABAPENTIN, AND MELOXICAM THAT HE USES NEEDED AND STATES THAT IT HELPS TO KEEP HIM MOBILE AND FUNCTIONAL. PATIENT DENIES UNEXPLAINABLE WEIGHT LOSS, FEVER, CHILLS, NEW CHANGES ON HIS URINARY OR BOWEL CONTROL. FALL RISK SCREENING: SCREENING :NO FALLS IN THE PAST YEAR CURRENT MEDICATIONS TAKING VALSARTAN-HYDROCHLOROTHIAZIDE 320-12.5 MG TABLET 1 TABLET ORALLY ONCE A DAY TAKING ATORVASTATIN CALCIUM 40 MG TABLET 1 TABLET ORALLY ONCE A DAY TAKING MELOXICAM 15 MG TABLET 1 TABLET ORALLY ONCE A DAY TAKING GABAPENTIN 300 MG/6ML SOLUTION 6 ML ORALLY THREE TIMES A DAY, NOTES: 0 TAKING HYDROCODONE-ACETAMINOPHEN 7.5-325 MG TABLET 1 TABLET NEEDED ORALLY EVERY 6 HRS TAKING ASPIRIN 500 MG TABLET DELAYED RELEASE 1 TABLET ORALLY BEFORE BEDTIME MEDICATION LIST REVIEWED AND RECONCILED WITH THE PATIENT PAST MEDICAL HISTORY HTN ARTHRITIS BACK PAIN ALLERGIES N.K.D.A. SURGICAL HISTORY BACK SURGERY 07/11 HERNIA 03/11 FAMILY HISTORY NO FAMILY HISTORY DOCUMENTED. SOCIAL HISTORY GENERAL: PAIN CLINIC PFS, CLERGY, PUBLIC HEALTH REFERRALS CLERGY REFERRAL NEEDED?NO WAS THE PROVIDER NOTIFIED OF ANY PERTINENT INFO?NO PFS REFERRAL NEEDED?NO PUBLIC HEALTH REFERRAL NEEDED?NO PATIENT: ____. HOSPITALIZATION/MAJOR DIAGNOSTIC PROCEDURE BACK SURGERY 07/11 REVIEW OF SYSTEMS CONSTITUTIONAL: ANY CHANGE IN YOUR MEDICAL CONDITION? POST PROCEDURE PROBLEMS . CHILLS NO . FEVER NO . INFECTION: DO YOU HAVE NEW INFECTIONS? NO . DO YOU HAVE HISTORY OF MRSA? NO . MUSCULOSKELETAL: ANY NEW PATTERNS OF PAIN OR NUMBNESS? NO . GASTROENTEROLOGY: ANY NEW CHANGE IN BOWEL CONTROL? NO . GENITOURINARY: ANY NEW CHANGE IN BLADDER CONTROL? NO . IS THERE A CHANCE YOU COULD BE ? NO . HEMATOLOGY/LYMPH: DO YOU TAKE ANY BLOOD THINNERS? (FOR EXAMPLE- COUMADIN, PLAVIX, AGGRENOX, PLATEL, PRADAXA, OR XARELTO) NO . WHEN WAS YOUR LAST DOSE? DATE: TIME: . NEUROLOGY: HAVE YOU FALLEN IN THE PAST 6 MONTHS? NO . ANY NEW EXTREMITY NUMBNESS OR WEAKNESS? NO . CARDIOLOGY: DO YOU HAVE A PACEMAKER OR DEFIBRILLATOR? NO . RESPIRATORY: HAVE YOU BEEN SICK IN THE PAST WEEK? NO . FEVER NO . FLU LIKE SYMPTOMS? NO . COUGH NO . INTEGUMENTARY: DO YOU HAVE ANY RASHES OR OPEN SORES? NO . ALLERGIC/IMMUNO: ARE YOU ALLERGIC TO SHELLFISH OR IV DYE? NO . ANY NEW ALLERGIES? NO . PSYCHIATRIC: DO YOU HAVE THOUGHTS OF HURTING YOURSELF OR SOMEONE ELSE? NO . ARE YOU ABUSED, NEGLECTED, OR IN AN UNSAFE ENVIRONMENT? NO . ENDOCRINOLOGY: ARE YOU DIABETIC? NO . OTHER: DO YOU NEED ANY PRESCRIPTIONS? NO . IF YES, PLEASE LIST: ____ . ANY NEW PROBLEMS WITH YOUR MEDICATIONS? NO . WHEN DID YOU LAST EAT? ____ . WHEN DID YOU LAST DRINK? ____ . WHAT DID YOU LAST DRINK? ____ . NAME OF PERSON DRIVING YOU HOME? ____ . DO YOU HAVE ANY OTHER QUESTIONS OR CONCERNS NO . REVIEWED BY: PROVIDER: MADINA CHENG MD . VITAL SIGNS WT 225.0 LBS, HT 73 IN, BMI 29.68 INDEX, BP 159/90 MM HG, HR 99 /MIN, RR 18 /MIN, TEMP 98 F,0 F, OXYGEN SAT % 98, NA INITIALS AW 1010. EXAMINATION : PATIENT IS ALERT O X 3 AND COOPERATIVE. TENDERNESS IN THE LOWER BACK AND PARASPINAL MUSCLE GROUP. PATIENT LIMPING FROM THE RIGHT LEG. RIGHT LEG IS WEAKER THEN THE LEG AT EXTENSION AND FLEXION THEN THE LEFT. LEFT ANKLE SWOLLEN. MRI DONE ON 06/06/16 OF THE LUMBAR SPINE DONE ON CANAL STENOSIS, DISC BULGE FROM L1-L2 THROUGH L5-S1, AND FACET HYPERTROPHY. 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 REBOLLAR'S PAIN MANAGEMENT CASE. AT THIS TIME THE PATIENT WILL CONTINUE WITH THE SAME MEDICATION REGIME BEFORE. AFTER VIEWING THE PATIENT'S INJECTION SITE IT APPEARS TO BE OF NORMAL COLOR. PATIENT WANT ADVISED TO KEEP SITE CLEAN AND TRY AND TO ICE THE AREA. PATIENT WAS ALSO ADVISED TO CALL IF THE PAIN WORSENS OR THERE IS MORE DISCOLORATION. PATIENT WILL RETURN TO THE CLINIC IN 4 WEEKS. INSTRUCTIONS WERE GIVEN, QUESTIONS WERE ANSWERED, PATIENT REPORTS UNDERSTANDING AND AGREES WITH THE PLAN. I, ANIKET PEOPLES, DOCUMENTED THE ABOVE INFORMATION ACTING A SCRIBE FOR DR. CHENG. I HAVE REVIEWED THE ABOVE DOCUMENT, WRITTEN BY ANIKET VASQUEZ AND I VERIFY THAT IT IS ACCURATE. PROCEDURE CODES FA211 ESTABILISHED PATIENT THE [facility] CHARGE G8427 DOC MEDS VERIFIED W/PT OR RE G9537 PAIN ASSESS POS TOOL F/U PLAN DOC DISPOSITION & COMMUNICATION FOLLOW UP 4 WEEKS ELECTRONICALLY SIGNED BY MADINA CHENG MD ON 10/16/2016 AT 04:41 PM EDT DISCLAIMER : THIS IS A VISIT SUMMARY EXTRACTED FROM THE [employer] CHART. IT IS NOT A COPY OF THE [employer] PROGRESS NOTE. CLARIBEL
== END ==
LOC: M PAIN 10:00
PROVIDERS: ATTEND Anesthesiology
DX: G89.29 Other chronic pain (principal); M47.816 Spondylosis without myelopathy or radiculopathy, lumbar region; M47.817 Spondylosis without myelopathy or radiculopathy, lumbosacral region; M96.1 Postlaminectomy syndrome, not elsewhere classified; I10 Essential (primary) hypertension; M19.90 Unspecified osteoarthritis, unspecified site; Z79.82 Long term (current) use of aspirin; Z79.899 Other long term (current) drug therapy

== ENCOUNTER → 2016-11-02 | Outpatient (CLI) | payer MEDICARE, OTHER ==
--- NOTE | 2016-11-02 14:37 | REP ---
Partial lumbar spine series: Single view. History: Right lumbar facet block for pain. 26 seconds of fluoroscopy time is reported. Findings: A single oblique fluoroscopically obtained last image hold radiograph of the lumbar spine documents various needle positions and contrast injections associated with lumbar spine facet injection procedure. Signed by Jace Amezcua MD 11/02/2016 04:34 P
--- NOTE | 2016-11-06 23:53 | ECWPNPC ---
PATIENT NAME: SHANTEL REBOLLAR : 1945 GENDER: MALE VISIT DATE: 11/02/2016 DISCHARGE DATE: 11/02/16 1048 VISIT LOCKED DATE TIME: PHYSICIAN: MADINA CHENG RESOURCE: MADINA CHENG REASON FOR APPOINTMENT 1. LFBD #2 HISTORY OF PRESENT ILLNESS HISTORY OF PRESENT ILLNESS: PAIN THE PATIENT DESCRIBES THE PAIN... FALL RISK SCREENING: SCREENING :NO FALLS IN THE PAST YEAR CURRENT MEDICATIONS TAKING VALSARTAN-HYDROCHLOROTHIAZIDE 320-12.5 MG TABLET 1 TABLET ORALLY ONCE A DAY, NOTES: 0600 11/02/16 TAKING ATORVASTATIN CALCIUM 40 MG TABLET 1 TABLET ORALLY ONCE A DAY, NOTES: 0611/02/16 TAKING MELOXICAM 15 MG TABLET 1 TABLET ORALLY ONCE A DAY, NOTES: 0611/02/16 TAKING GABAPENTIN 300 MG/6ML SOLUTION 6 ML ORALLY THREE TIMES A DAY, NOTES: 0600 YESTERDAY 11/01/16 TAKING HYDROCODONE-ACETAMINOPHEN 7.5-325 MG TABLET 1 TABLET NEEDED ORALLY EVERY 6 HRS, NOTES: 0600 YESTERDAY 11/01/16 TAKING ASPIRIN 500 MG TABLET DELAYED RELEASE 1 TABLET ORALLY BEFORE BEDTIME, NOTES: 3-4 DAYS MEDICATION LIST REVIEWED AND RECONCILED WITH THE PATIENT PAST MEDICAL HISTORY HTN ARTHRITIS BACK PAIN ALLERGIES N.K.D.A. REVIEW OF SYSTEMS CONSTITUTIONAL: ANY CHANGE IN YOUR MEDICAL CONDITION? NO . CHILLS NO . FEVER NO . INFECTION: DO YOU HAVE NEW INFECTIONS? NO . DO YOU HAVE HISTORY OF MRSA? NO . MUSCULOSKELETAL: ANY NEW PATTERNS OF PAIN OR NUMBNESS? NO . GASTROENTEROLOGY: ANY NEW CHANGE IN BOWEL CONTROL? NO . GENITOURINARY: ANY NEW CHANGE IN BLADDER CONTROL? NO . IS THERE A CHANCE YOU COULD BE ? NO . HEMATOLOGY/LYMPH: DO YOU TAKE ANY BLOOD THINNERS? (FOR EXAMPLE- COUMADIN, PLAVIX, AGGRENOX, PLATEL, PRADAXA, OR XARELTO) NO . WHEN WAS YOUR LAST DOSE? DATE: TIME: . NEUROLOGY: HAVE YOU FALLEN IN THE PAST 6 MONTHS? NO . ANY NEW EXTREMITY NUMBNESS OR WEAKNESS? NO . CARDIOLOGY: DO YOU HAVE A PACEMAKER OR DEFIBRILLATOR? NO . RESPIRATORY: HAVE YOU BEEN SICK IN THE PAST WEEK? NO . FEVER NO . FLU LIKE SYMPTOMS? NO . COUGH NO . INTEGUMENTARY: DO YOU HAVE ANY RASHES OR OPEN SORES? NO . ALLERGIC/IMMUNO: ARE YOU ALLERGIC TO SHELLFISH OR IV DYE? NO . ANY NEW ALLERGIES? NO . PSYCHIATRIC: DO YOU HAVE THOUGHTS OF HURTING YOURSELF OR SOMEONE ELSE? NO . ARE YOU ABUSED, NEGLECTED, OR IN AN UNSAFE ENVIRONMENT? NO . ENDOCRINOLOGY: ARE YOU DIABETIC? NO . OTHER: DO YOU NEED ANY PRESCRIPTIONS? NO . IF YES, PLEASE LIST: ____ . ANY NEW PROBLEMS WITH YOUR MEDICATIONS? NO . WHEN DID YOU LAST EAT? 3PM . WHEN DID YOU LAST DRINK? 9PM . WHAT DID YOU LAST DRINK? WATER . NAME OF PERSON DRIVING YOU HOME? SINCERE . DO YOU HAVE ANY OTHER QUESTIONS OR CONCERNS NO . REVIEWED BY: PROVIDER: . VITAL SIGNS WT 225.0 LBS, HT 73 IN, BMI 29.68 INDEX, BP 163/95 MM HG, HR 70 /MIN, RR 20 /MIN, TEMP 97.4 F, OXYGEN SAT % 98%, NA INITIALS SC 09:00, REVIEWED BY: NL. ASSESSMENTS SPONDYLOSIS WITHOUT MYELOPATHY OR RADICULOPATHY, LUMBAR REGION - M47.816 (PRIMARY) SPONDYLOSIS WITHOUT MYELOPATHY OR RADICULOPATHY, LUMBOSACRAL REGION - M47.817 PROCEDURES PN LUMBAR FACET BLOCK DIAGNOSTIC PRE PROCEDURE DIAGNOSIS LUMBAR SPONDYLOSIS, LUMBOSACRAL SPONDYLOSIS POST PROCEDURE DIAGNOSIS LUMBAR SPONDYLOSIS, LUMBOSACRAL SPONDYLOSIS PROCEDURE RIGHT L4-L5 AND RIGHT L5-S1 FACET BLOCK DIAGNOSTIC NUMBER [address] MADINA CHENG CROWN PERFORATOR OPERATOR NONE ANESTHESIA LOCAL PRE PROCEDURE NOTE THE PATIENT WITH HISTORY OF CHRONIC LOW BACK PAIN. I EVALUATED THE PATIENT AND REVIEWED THE CHART. I WENT OVER THE RISKS, ALTERNATIVES, AND BENEFITS ASSOCIATED WITH THIS PROCEDURE. THE PATIENT WOULD LIKE TO PROCEED AND GAVE CONSENT TO PERFORM THE PROCEDURE. AGREED WITH THE PATIENT WE ARE DOING THIS PROCEDURE TO DETERMINE IF THE PATIENT IS A CANDIDATE FOR A RADIOFREQUENCY ABLATION OF THE FACETS JOINTS. THE PATIENT DENIES UNEXPLAINABLE WEIGHT LOSS, FEVER, CHILLS, OR NEW CHANGES IN URINARY OR BOWEL CONTROL DESCRIPTION OF PROCEDURE THE PATIENT WAS BROUGHT TO THE PROCEDURE ROOM AND PLACED IN THE PRONE POSITION. THE LUMBOSACRAL AREA WAS CLEANED WITH CHLORAPREP SOLUTION AND DRAPED ASEPTICALLY. THE PROCEDURE WAS DONE UNDER STERILE CONDITIONS. I CHECKED LATERALITY AND THE LEVEL WHERE THE PROCEDURE WAS GOING TO BE PERFORMED WITH THE PATIENT AND THE SUPPORTING STAFF AT THE MOMENT OF THE TIME OUT IN THE PROCEDURE ROOM. UNDER FLUOROSCOPIC GUIDANCE, TARGETS WERE SELECTED AT THE INTERSECTION OF THE RIGHT TRANSVERSE PROCESS OF L4, L5 AND ALA OF S1 WITH ITS RESPECTIVE SUPERIOR ARTICULAR PROCESS. LIDOCAINE WAS USED TO NUMB THE SKIN AND THE SUBCUTANEOUS TISSUE BELOW IT. SPINAL NEEDLE, 22-GAUGE WAS ADVANCED UNDER FLUOROSCOPIC GUIDANCE AND FOLLOWING PATIENT FEEDBACK UNTIL THE TARGETS WERE REACHED. POSITION OF THE NEEDLES WAS VERIFIED WITH AP AND LATERAL VIEWS. AFTER PROPER POSITION OF THE NEEDLES WAS ACHIEVED, ISOVUE-M DYE 30% 0.1 ML WAS INJECTED AT EACH SITE SHOWING ADEQUATE SPREAD OF THE DYE. THEN A SOLUTION OF 0.4 ML OF BUPIVACAINE 0.25% WAS INJECTED AT EACH SITE. THERE WAS NO EVIDENCE OF BLOOD, PARESTHESIA OR CEREBROSPINAL FLUID DURING THE PROCEDURE. THE PATIENT WAS SENT TO THE RECOVERY ROOM. THE PATIENT WAS MOVING THE EXTREMITIES AND DOING WELL. THERE WAS NO COMPLICATION DURING THE PROCEDURE. FLUOROSCOPY TIME WAS 26 SECONDS POST PROCEDURE NOTE THE PATIENT WILL DOCUMENT HIS PAIN LEVEL AND RESPONSE TO THIS PROCEDURE EVERY 30 MINUTES. THE PATIENT WILL BE SEEN IN A FOLLOW UP IN THE NEXT FEW WEEKS. FURTHER DETERMINATION FOR HIS CASE WILL BE DONE AT THE NEXT VISIT. INSTRUCTIONS WERE GIVEN, QUESTIONS WERE ANSWERED, AND THE PATIENT EXPRESSED UNDERSTANDING AND AGREED WITH THE PLAN. I, ANIKET PEOPLES, DOCUMENTED THE ABOVE INFORMATION ACTING A SCRIBE FOR DR. CHENG. I HAVE REVIEWED THE ABOVE DOCUMENT, WRITTEN BY ANIKET VASQUEZ AND I VERIFY THAT IT IS ACCURATE DIAGNOSTIC IMAGING SMC FACET BLOCK (PAIN)[id number] PROCEDURE CODES 03981 INJ PARAVERT F JNT L/S 1 LEV 91419 INJ PARAVERT F JNT L/S 2 LEV 6045F RADXPS IN END [id number] PXD DISPOSITION & COMMUNICATION FOLLOW UP 3 WEEKS ELECTRONICALLY SIGNED BY MADINA CHENG MD ON 11/06/2016 AT 01:53 PM EDT DISCLAIMER : THIS IS A VISIT SUMMARY EXTRACTED FROM THE [employer] CHART. IT IS NOT A COPY OF THE [employer] PROGRESS NOTE. MTDD
== END ==
LOC: M PAIN 09:00
PROVIDERS: ATTEND Anesthesiology
DX: G89.29 Other chronic pain (principal); M47.816 Spondylosis without myelopathy or radiculopathy, lumbar region; M47.817 Spondylosis without myelopathy or radiculopathy, lumbosacral region; I10 Essential (primary) hypertension; M19.90 Unspecified osteoarthritis, unspecified site; Z79.891 Long term (current) use of opiate analgesic; Z79.82 Long term (current) use of aspirin; Z79.899 Other long term (current) drug therapy
CPT/HCPCS: 64493; 64494; Q9967

== ENCOUNTER → 2016-11-18 | Outpatient (CLI) | payer MEDICARE, OTHER ==
--- NOTE | 2016-12-14 01:17 | ECWPNPC ---
PATIENT NAME: SHANTEL REBOLLAR : 1945 GENDER: MALE VISIT DATE: 11/18/2016 DISCHARGE DATE: 11/18/16 1005 VISIT LOCKED DATE TIME: PHYSICIAN: GUTIERREZ ORELLANA RESOURCE: GUTIERREZ ORELLANA REASON FOR APPOINTMENT 1. POST PROCEDURE HISTORY OF PRESENT ILLNESS HISTORY OF PRESENT ILLNESS: HAD DX #2 RIGHT L4/5-L5/S1 ON 11-02-16.PAIN DIARY REVIEWED AND THIS SHOWED 100% IMPROVEMENT FOR 2 DAYS THEN PAIN RETURNED TO BASELINE.RATING PAIN VAS 2/10.PAIN IS LOCATED IN RIGHT LOW BACK.DENIES RADICULAR SYMPTOMS.DESCRIBES PAIN CONSTANT,SORE AND TENDER.DISCUSSED RAIOFREQUENCY PROCEDURE. FALL RISK SCREENING: SCREENING :NO FALLS IN THE PAST YEAR CURRENT MEDICATIONS TAKING VALSARTAN-HYDROCHLOROTHIAZIDE 320-12.5 MG TABLET 1 TABLET ORALLY ONCE A DAY, NOTES: 0600 11/02/16 TAKING ATORVASTATIN CALCIUM 40 MG TABLET 1 TABLET ORALLY ONCE A DAY, NOTES: 0600 11/02/16 TAKING MELOXICAM 15 MG TABLET 1 TABLET ORALLY ONCE A DAY, NOTES: 0600 11/02/16 TAKING GABAPENTIN 300 MG/6ML SOLUTION 6 ML ORALLY THREE TIMES A DAY, NOTES: 0600 YESTERDAY 11/01/16 TAKING HYDROCODONE-ACETAMINOPHEN 7.5-325 MG TABLET 1 TABLET NEEDED ORALLY EVERY 6 HRS, NOTES: 0600 YESTERDAY 11/01/16 TAKING ASPIRIN 500 MG TABLET DELAYED RELEASE 1 TABLET ORALLY BEFORE BEDTIME, NOTES: 3-4 DAYS MEDICATION LIST REVIEWED AND RECONCILED WITH THE PATIENT PAST MEDICAL HISTORY HTN ARTHRITIS BACK PAIN ALLERGIES N.K.D.A. SURGICAL HISTORY BACK SURGERY 07/11 HERNIA 03/11 HOSPITALIZATION/MAJOR DIAGNOSTIC PROCEDURE BACK SURGERY 07/11 REVIEW OF SYSTEMS CONSTITUTIONAL: ANY CHANGE IN YOUR MEDICAL CONDITION? NO . CHILLS NO . FEVER NO . INFECTION: DO YOU HAVE NEW INFECTIONS? NO . DO YOU HAVE HISTORY OF MRSA? NO . MUSCULOSKELETAL: ANY NEW PATTERNS OF PAIN OR NUMBNESS? NO . GASTROENTEROLOGY: ANY NEW CHANGE IN BOWEL CONTROL? NO . GENITOURINARY: ANY NEW CHANGE IN BLADDER CONTROL? NO . IS THERE A CHANCE YOU COULD BE ? NO . HEMATOLOGY/LYMPH: DO YOU TAKE ANY BLOOD THINNERS? (FOR EXAMPLE- COUMADIN, PLAVIX, AGGRENOX, PLATEL, PRADAXA, OR XARELTO) NO . WHEN WAS YOUR LAST DOSE? DATE: TIME: . NEUROLOGY: HAVE YOU FALLEN IN THE PAST 6 MONTHS? NO . ANY NEW EXTREMITY NUMBNESS OR WEAKNESS? NO . CARDIOLOGY: DO YOU HAVE A PACEMAKER OR DEFIBRILLATOR? NO . RESPIRATORY: HAVE YOU BEEN SICK IN THE PAST WEEK? NO . FEVER NO . FLU LIKE SYMPTOMS? NO . COUGH NO . INTEGUMENTARY: DO YOU HAVE ANY RASHES OR OPEN SORES? NO . ALLERGIC/IMMUNO: ARE YOU ALLERGIC TO SHELLFISH OR IV DYE? NO . ANY NEW ALLERGIES? NO . PSYCHIATRIC: DO YOU HAVE THOUGHTS OF HURTING YOURSELF OR SOMEONE ELSE? NO . ARE YOU ABUSED, NEGLECTED, OR IN AN UNSAFE ENVIRONMENT? NO . ENDOCRINOLOGY: ARE YOU DIABETIC? NO . OTHER: DO YOU NEED ANY PRESCRIPTIONS? NO . IF YES, PLEASE LIST: ____ . ANY NEW PROBLEMS WITH YOUR MEDICATIONS? NO . WHEN DID YOU LAST EAT? ____ . WHEN DID YOU LAST DRINK? ____ . WHAT DID YOU LAST DRINK? ____ . NAME OF PERSON DRIVING YOU HOME? ____ . DO YOU HAVE ANY OTHER QUESTIONS OR CONCERNS NO . REVIEWED BY: PROVIDER: GUTIERREZ SPRINGER . VITAL SIGNS WT 210.8 LBS, HT 73 IN, BMI 27.81 INDEX, BP 156/82 MM HG, HR 62 /MIN, RR 18 /MIN, TEMP 97.8 F, OXYGEN SAT % 100%, SAFE IN ENV? (Y/N) Y, NA INITIALS AW 0922, REVIEWED BY: EM. EXAMINATION GENERAL EXAMINATION: LUNGS:LUNG SOUNDS ARE CLEAR. HEART:HEART RATE REGULAR. MUSCULOSKELETAL:*, MUSCLE STRENGTH TESTING 5/5 BLE., PALPATION: NEGATIVE FOR PAIN OVER L/S SPINE. NEGATIVE FOR PAIN OVER L/S PARASPINALS. DIAGNOSTIC:MRI L/S SPINE -33-80-40-REVIEWED.. ASSESSMENTS SPONDYLOSIS OF LUMBAR REGION WITHOUT MYELOPATHY OR RADICULOPATHY - M47.816 (PRIMARY) POSTLAMINECTOMY SYNDROME, NOT ELSEWHERE CLASSIFIED - M96.1 (PRIMARY) TREATMENT SPONDYLOSIS OF LUMBAR REGION WITHOUT MYELOPATHY OR RADICULOPATHY NOTES: REQUEST RIGHT RADIOFREQUENCY L4/5-L5/S1,UNDERSTANDING RADIOFREQUENCY DENERVATION MATERIAL WAS PRINTED, REVIEWED AND GIVEN TO PT. PROCEDURE CODES FA211 ESTABILISHED PATIENT [facility] CHARGE DISPOSITION & COMMUNICATION FOLLOW UP 2WK POST (REASON: REQUEST RIGHT RADIOFREQUENCY L4/5-L5/S1) ELECTRONICALLY SIGNED BY RACHEAL PARADA ON 12/12/2016 AT 05:36 PM EDT DISCLAIMER : THIS IS A VISIT SUMMARY EXTRACTED FROM THE [employer] CHART. IT IS NOT A COPY OF THE [employer] PROGRESS NOTE. CLARIBEL
== END ==
LOC: M PAIN 09:20
PROVIDERS: ATTEND Nurse Practitioner Family
DX: M96.1 Postlaminectomy syndrome, not elsewhere classified (principal); M47.816 Spondylosis without myelopathy or radiculopathy, lumbar region; I10 Essential (primary) hypertension; M19.90 Unspecified osteoarthritis, unspecified site; Z79.891 Long term (current) use of opiate analgesic; Z79.82 Long term (current) use of aspirin; Z79.899 Other long term (current) drug therapy

== ENCOUNTER → 2016-11-28 | Outpatient (CLI) | payer MEDICARE, OTHER ==
[~2016-11-28] MED LIST changes: +TRIAMCINOLONE ACETONIDE SUSP 40 MG/ML VIAL (J3301) As Ordered ONE
--- NOTE | 2016-12-01 10:22 | REP ---
Partial lumbar spine series: Two views. Repeat dictation. History: Right lumbar facet block for pain. 44 seconds of fluoroscopy time is reported. Findings: A sequence of two fluoroscopically obtained intraprocedural last image hold spot radiographs of the lumbar spine document needle positions associated with injection procedure. Signed by Jace Amezcua MD 12/01/2016 12:38 P
--- NOTE | 2016-12-04 23:32 | ECWPNPC ---
PATIENT NAME: SHANTEL REBOLLAR : 1945 GENDER: MALE VISIT DATE: 11/28/2016 DISCHARGE DATE: 11/28/16 1522 VISIT LOCKED DATE TIME: PHYSICIAN: MADINA CHENG RESOURCE: MADINA CHENG REASON FOR APPOINTMENT 1. RIGHT RF HISTORY OF PRESENT ILLNESS HISTORY OF PRESENT ILLNESS: PAIN THE PATIENT DESCRIBES THE PAIN... FALL RISK SCREENING: SCREENING :NO FALLS IN THE PAST YEAR CURRENT MEDICATIONS TAKING VALSARTAN-HYDROCHLOROTHIAZIDE 320-12.5 MG TABLET 1 TABLET ORALLY ONCE A DAY, NOTES: 11-28-16599 TAKING ATORVASTATIN CALCIUM 40 MG TABLET 1 TABLET ORALLY ONCE A DAY, NOTES: 11-28-16599 TAKING MELOXICAM 15 MG TABLET 1 TABLET ORALLY ONCE A DAY, NOTES: 11-28-16599 TAKING GABAPENTIN 300 MG/6ML SOLUTION 6 ML ORALLY THREE TIMES A DAY, NOTES: 11-27-16 AM TAKING HYDROCODONE-ACETAMINOPHEN 7.5-325 MG TABLET 1 TABLET NEEDED ORALLY EVERY 6 HRS, NOTES: 11-27-16 2PM NOT-TAKING ASPIRIN 500 MG TABLET DELAYED RELEASE 1 TABLET ORALLY BEFORE BEDTIME, NOTES: NONE MEDICATION LIST REVIEWED AND RECONCILED WITH THE PATIENT PAST MEDICAL HISTORY HTN ARTHRITIS BACK PAIN ALLERGIES N.K.D.A. REVIEW OF SYSTEMS CONSTITUTIONAL: ANY CHANGE IN YOUR MEDICAL CONDITION? NO . CHILLS NO . FEVER NO . INFECTION: DO YOU HAVE NEW INFECTIONS? NO . DO YOU HAVE HISTORY OF MRSA? NO . MUSCULOSKELETAL: ANY NEW PATTERNS OF PAIN OR NUMBNESS? NO . GASTROENTEROLOGY: ANY NEW CHANGE IN BOWEL CONTROL? NO . GENITOURINARY: ANY NEW CHANGE IN BLADDER CONTROL? NO . IS THERE A CHANCE YOU COULD BE ? NO . HEMATOLOGY/LYMPH: DO YOU TAKE ANY BLOOD THINNERS? (FOR EXAMPLE- COUMADIN, PLAVIX, AGGRENOX, PLATEL, PRADAXA, OR XARELTO) NO . WHEN WAS YOUR LAST DOSE? DATE: TIME: . NEUROLOGY: HAVE YOU FALLEN IN THE PAST 6 MONTHS? NO . ANY NEW EXTREMITY NUMBNESS OR WEAKNESS? NO . CARDIOLOGY: DO YOU HAVE A PACEMAKER OR DEFIBRILLATOR? NO . RESPIRATORY: HAVE YOU BEEN SICK IN THE PAST WEEK? NO . FEVER NO . FLU LIKE SYMPTOMS? NO . COUGH NO . INTEGUMENTARY: DO YOU HAVE ANY RASHES OR OPEN SORES? NO . ALLERGIC/IMMUNO: ARE YOU ALLERGIC TO SHELLFISH OR IV DYE? NO . ANY NEW ALLERGIES? NO . PSYCHIATRIC: DO YOU HAVE THOUGHTS OF HURTING YOURSELF OR SOMEONE ELSE? NO . ARE YOU ABUSED, NEGLECTED, OR IN AN UNSAFE ENVIRONMENT? NO . ENDOCRINOLOGY: ARE YOU DIABETIC? NO . OTHER: DO YOU NEED ANY PRESCRIPTIONS? NO . IF YES, PLEASE LIST: ____ . ANY NEW PROBLEMS WITH YOUR MEDICATIONS? NO . WHEN DID YOU LAST EAT? 11-27-16 7PM . WHEN DID YOU LAST DRINK? 11-28-16 8 PM . WHAT DID YOU LAST DRINK? WATER . NAME OF PERSON DRIVING YOU HOME? SINCERE . DO YOU HAVE ANY OTHER QUESTIONS OR CONCERNS NO . REVIEWED BY: PROVIDER: . VITAL SIGNS WT 215 LBS, HT 73 IN, BMI 28.36 INDEX, BP 147/89 MM HG, HR 64 /MIN, RR 18 /MIN, TEMP 98.1 F, OXYGEN SAT % 98%, NA INITIALS SC 11:44, REVIEWED BY: CM. ASSESSMENTS SPONDYLOSIS WITHOUT MYELOPATHY OR RADICULOPATHY, LUMBAR REGION - M47.816 (PRIMARY) SPONDYLOSIS WITHOUT MYELOPATHY OR RADICULOPATHY, LUMBOSACRAL REGION - M47.817 PROCEDURES PN RADIOFREQUENCY PRE PROCEDURE DIAGNOSES 1. LUMBAR SPONDYLOSIS. 2. LUMBOSACRAL SPONDYLOSIS POST PROCEDURE DIAGNOSES 1. LUMBAR SPONDYLOSIS. 2. LUMBOSACRAL SPONDYLOSIS PROCEDURE RIGHT L4-L5 AND L5-S1 LUMBAR FACET RADIOFREQUENCY SURGEON DR. MADINA CHENG POCKET SETTER NONE ANESTHESIA LOCAL PRE PROCEDURE REPORT THE PATIENT HAS HISTORY OF CHRONIC LOW BACK PAIN. I EVALUATE THE PATIENT AND REVIEWED THE CHART. I WENT OVER THE RISKS, ALTERNATIVES, AND BENEFITS ASSOCIATED WITH THIS PROCEDURE. THE PATIENT WOULD LIKE TO PROCEED AND GIVE CONSENT TO PERFORMED THE PROCEDURE. THE PATIENT DENIES UNEXPLAINABLE WEIGHT LOSS, FEVER, CHILLS, OR NEW CHANGES IN URINARY OR BOWEL CONTROL DESCRIPTION OF PROCEDURE THE PATIENT WAS BROUGHT TO THE PROCEDURE ROOM AND PLACED IN THE PRONE POSITION. THE LUMBOSACRAL AREA WAS CLEANED WITH CHLORAPREP SOLUTION AND DRAPED ASEPTICALLY. THE PROCEDURE WAS DONE UNDER STERILE CONDITIONS. I CHECKED LATERALITY AND THE LEVEL WHERE THE PROCEDURE WAS GOING TO BE PERFORMED WITH THE PATIENT AND THE SUPPORTING STAFF AT THE MOMENT OF THE TIME OUT IN THE PROCEDURE ROOM. UNDER FLUOROSCOPIC GUIDANCE, TARGETS WERE SELECTED AT THE INTERSECTION OF THE RIGHT TRANSVERSE PROCESS OF L4, L5 AND ALA OF S1 WITH ITS RESPECTIVE SUPERIOR ARTICULAR PROCESS. LIDOCAINE WAS USED TO NUMB THE SKIN AND THE SUBCUTANEOUS TISSUE BELOW IT. RADIOFREQUENCY NEEDLES 22-GAUGE 15 CM LONG WITH 10 MM ACTIVE CURVE TIP WERE ADVANCED UNDER FLUOROSCOPIC GUIDANCE AND FOLLOWING PATIENT FEEDBACK UNTIL THE TARGET AREA WAS REACHED. POSITION OF THE NEEDLES WAS VERIFIED WITH AP AND LATERAL VIEWS. AFTER PROPER POSITION OF THE NEEDLE WAS ACHIEVED, WE WORKED WITH THE RIGHT SELECTED MEDIAN BRANCHES OF L4, L5 AND THE DORSAL RAMI OF S1. WE MEASURED THE CORRESPONDING IMPEDANCES, SENSORY STIMULATION AND MOTOR RESPONSES INDICATED IN THE RADIOFREQUENCY WORKSHEET. POSITION OF THE NEEDLES WAS VERIFIED AGAIN WITH AP AND LATERAL VIEWS. LIDOCAINE 1%, 2 ML, WAS INJECTED AT EACH LEVEL. RADIOFREQUENCY WAS DONE AT EACH LEVEL AT 80 DEGREES FOR 90 SECONDS. AFTER RADIOFREQUENCY WAS DONE, THE PATIENT RECEIVED BUPIVACAINE 0.125% 1 CC WITH KENALOG 5 MG AT EACH SITE. THERE WAS NO EVIDENCE OF BLOOD, PARESTHESIA OR CEREBROSPINAL FLUID DURING THE PROCEDURE. THE PATIENT WAS SENT TO THE RECOVERY ROOM. THE PATIENT WAS MOVING THE EXTREMITIES AND DOING WELL. THERE WAS NO COMPLICATION DURING THE PROCEDURE. FLUOROSCOPY TIME WAS 44 SECONDS POST PROCEDURE NOTE THE PATIENT WILL BE SEEN IN A FOLLOW UP IN THE NEXT FEW WEEKS. INSTRUCTIONS WERE GIVEN, QUESTIONS WERE ANSWERED, AND THE PATIENT EXPRESSED UNDERSTANDING AND AGREES WITH THE PLAN. I, LAUREN RUSHING, DOCUMENTED THE ABOVE INFORMATION ACTING A SCRIBE FOR DR. CHENG. I HAVE REVIEWED THE ABOVE DOCUMENT, WRITTEN BY LAUREN RUSHING SCRIBE AND I VERIFY THAT IT IS ACCURATE DIAGNOSTIC IMAGING [facility] FACET BLOCK (PAIN)[id number] PROCEDURE CODES 50376 DESTROY LUMB/SAC FACET JNT 12917 DESTROY L/S FACET JNT ADDL 6045F RADXPS IN END [id number] PXD DISPOSITION & COMMUNICATION FOLLOW UP 3 WEEKS ELECTRONICALLY SIGNED BY MADINA CHENG MD ON 12/04/2016 AT 07:43 PM EDT DISCLAIMER : THIS IS A VISIT SUMMARY EXTRACTED FROM THE [facility] CHART. IT IS NOT A COPY OF THE [facility] PROGRESS NOTE. MTDD
== END ==
LOC: M PAIN 11:40
PROVIDERS: ATTEND Anesthesiology
DX: G89.29 Other chronic pain (principal); M47.816 Spondylosis without myelopathy or radiculopathy, lumbar region; M47.817 Spondylosis without myelopathy or radiculopathy, lumbosacral region; I10 Essential (primary) hypertension; M19.90 Unspecified osteoarthritis, unspecified site; Z79.891 Long term (current) use of opiate analgesic; Z79.899 Other long term (current) drug therapy
CPT/HCPCS: 64635; 64636; J3301; Q9967

== ENCOUNTER → 2016-12-13 | Outpatient (CLI) | payer MEDICARE, OTHER ==
--- NOTE | 2016-12-14 00:47 | ECWPNPC ---
PATIENT NAME: SHANTEL REBOLLAR : 1945 GENDER: MALE VISIT DATE: 12/13/2016 DISCHARGE DATE: 12/13/16 1109 VISIT LOCKED DATE TIME: PHYSICIAN: GUTIERREZ ORELLANA RESOURCE: GUTIERREZ ORELLANA REASON FOR APPOINTMENT 1. POST RF HISTORY OF PRESENT ILLNESS HISTORY OF PRESENT ILLNESS: HERE FOR POST PROCEDURE F/U.HAD RIGHT L4/5 AND L5/S1 RADIOFREQUENCY ON 11-28-16.REPORTING 80 PERCENT IMPROVEMENT ON THIS DAY #15 POST PROCEDURE.CONTINUES WITH SOME RADICULAR SYMPTOMS DOWN RIGHT LEG AND BUTTOCK.RATING PAIN VAS 2/10.DESCRIBES PAIN SHARP AND TENDER OVER RIGHT BUTTOCK AND RIGHT LEG.PAIN IS AGGREVATED AT NIGHT. PAIN THE PATIENT DESCRIBES THE PAIN... FALL RISK SCREENING: SCREENING :NO FALLS IN THE PAST YEAR CURRENT MEDICATIONS TAKING VALSARTAN-HYDROCHLOROTHIAZIDE 320-12.5 MG TABLET 1 TABLET ORALLY ONCE A DAY TAKING ATORVASTATIN CALCIUM 40 MG TABLET 1 TABLET ORALLY ONCE A DAY TAKING MELOXICAM 15 MG TABLET 1 TABLET ORALLY ONCE A DAY TAKING GABAPENTIN 300 MG CAPSULE 1 TAB ORALLY THREE TIMES A DAY TAKING HYDROCODONE-ACETAMINOPHEN 7.5-325 MG TABLET 1 TABLET NEEDED ORALLY EVERY 6 HRS NOT-TAKING ASPIRIN 500 MG TABLET DELAYED RELEASE 1 TABLET ORALLY BEFORE BEDTIME, NOTES: NONE MEDICATION LIST REVIEWED AND RECONCILED WITH THE PATIENT PAST MEDICAL HISTORY HTN ARTHRITIS BACK PAIN ALLERGIES N.K.D.A. SOCIAL HISTORY GENERAL: TOBACCO USE ARE YOU A: FORMER SMOKER . RECREATIONAL DRUG USE DRUG USE? NO . CAFFEINE CAFFEINE USE? NO . EXERCISE: NO REGULAR EXERCISE. MARITAL STATUS: . OTHERS AT HOME: SPOUSE, OTHER RELATIVE GRANDSON. PETS: 5 CATS. GNOSTICISM PENTECOSTALISM. LANGUAGE PORTUGUESE. 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 PSYCHOLOGICAL HX TREATMENT NO . PAIN CLINIC PFS, CLERGY, PUBLIC HEALTH REFERRALS HAS THE PATIENT BEEN EDUCATED REGARDING HIS/HER PLAN OF CARE?YES HAS THE PATIENT BEEN EDUCATED REGARDING PAIN, THE RISK FOR PAIN, THE IMPORTANCE OF EFFECTIVE PAIN MANAGEMENT, AND THE PAIN ASSESSMENT PROCESS?YES PATIENT: ____. ADVANCE DIRECTIVES HEALTH CARE PROXY?YES NAME OF HCP S[facility]ERE REBOLLAR CONTACT # FOR HCP [id number] [phone] POWER OF VISUAL SUPERVISOR?NO RETIRED: YES. 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 REVIEW OF SYSTEMS CONSTITUTIONAL: ANY CHANGE IN YOUR MEDICAL CONDITION? NO . CHILLS NO . FEVER NO . INFECTION: DO YOU HAVE NEW INFECTIONS? NO . DO YOU HAVE HISTORY OF MRSA? NO . MUSCULOSKELETAL: ANY NEW PATTERNS OF PAIN OR NUMBNESS? NO . GASTROENTEROLOGY: ANY NEW CHANGE IN BOWEL CONTROL? NO . GENITOURINARY: ANY NEW CHANGE IN BLADDER CONTROL? NO . IS THERE A CHANCE YOU COULD BE ? NO . HEMATOLOGY/LYMPH: DO YOU TAKE ANY BLOOD THINNERS? (FOR EXAMPLE- COUMADIN, PLAVIX, AGGRENOX, PLATEL, PRADAXA, OR XARELTO) NO . WHEN WAS YOUR LAST DOSE? DATE: TIME: . NEUROLOGY: HAVE YOU FALLEN IN THE PAST 6 MONTHS? NO . ANY NEW EXTREMITY NUMBNESS OR WEAKNESS? NO . CARDIOLOGY: DO YOU HAVE A PACEMAKER OR DEFIBRILLATOR? NO . RESPIRATORY: HAVE YOU BEEN SICK IN THE PAST WEEK? NO . FEVER NO . FLU LIKE SYMPTOMS? NO . COUGH NO . INTEGUMENTARY: DO YOU HAVE ANY RASHES OR OPEN SORES? NO . ALLERGIC/IMMUNO: ARE YOU ALLERGIC TO SHELLFISH OR IV DYE? NO . ANY NEW ALLERGIES? NO . PSYCHIATRIC: DO YOU HAVE THOUGHTS OF HURTING YOURSELF OR SOMEONE ELSE? NO . ARE YOU ABUSED, NEGLECTED, OR IN AN UNSAFE ENVIRONMENT? NO . ENDOCRINOLOGY: ARE YOU DIABETIC? NO . OTHER: DO YOU NEED ANY PRESCRIPTIONS? NO . IF YES, PLEASE LIST: ____ . ANY NEW PROBLEMS WITH YOUR MEDICATIONS? NO . WHEN DID YOU LAST EAT? ____ . WHEN DID YOU LAST DRINK? ____ . WHAT DID YOU LAST DRINK? ____ . NAME OF PERSON DRIVING YOU HOME? ____ . DO YOU HAVE ANY OTHER QUESTIONS OR CONCERNS NO . REVIEWED BY: PROVIDER: GUTIERREZ SPRINGER . VITAL SIGNS WT 217.0 LBS, HT 73 IN, BMI 28.63 INDEX, BP 169/99 MM HG, HR 68 /MIN, RR 16 /MIN, TEMP 98.4 F, OXYGEN SAT % 98%, NA INITIALS TL 1045, REVIEWED BY: CS. EXAMINATION GENERAL EXAMINATION: LUNGS:LUNG SOUNDS ARE CLEAR. HEART:HEART RATE REGULAR. MUSCULOSKELETAL:*, MUSCLE STRENGTH TESTING 5/5 BLE., PALPATION: NEGATIVE FOR PAIN OVER L/S SPINE. NEGATIVE FOR PAIN OVER L/S PARASPINALS. DIAGNOSTIC:MRI L/S SPINE -[id number]-REVIEWED.. ASSESSMENTS SPONDYLOSIS OF LUMBAR REGION WITHOUT MYELOPATHY OR RADICULOPATHY - M47.816 (PRIMARY) POSTLAMINECTOMY SYNDROME, NOT ELSEWHERE CLASSIFIED - M96.1 (PRIMARY) PROCEDURE CODES FA211 ESTABILISHED PATIENT [facility] CHARGE DISPOSITION & COMMUNICATION FOLLOW UP 4 WEEKS ELECTRONICALLY SIGNED BY RACHEAL PARADA ON 12/13/2016 AT 03:12 PM EDT DISCLAIMER : THIS IS A VISIT SUMMARY EXTRACTED FROM THE [facility] CHART. IT IS NOT A COPY OF THE [facility] PROGRESS NOTE. CLARIBEL
== END ==
LOC: M PAIN 10:00
PROVIDERS: ATTEND Nurse Practitioner Family
DX: M96.1 Postlaminectomy syndrome, not elsewhere classified (principal); M47.816 Spondylosis without myelopathy or radiculopathy, lumbar region; I10 Essential (primary) hypertension; M19.90 Unspecified osteoarthritis, unspecified site; Z79.899 Other long term (current) drug therapy; Z87.891 Personal history of nicotine dependence

== ENCOUNTER → 2017-01-10 | Outpatient (CLI) | payer MEDICARE, OTHER ==
--- NOTE | 2017-01-11 03:23 | ECWPNPC ---
PATIENT NAME: SHANTEL REBOLLAR : 1945 GENDER: MALE VISIT DATE: 01/10/2017 DISCHARGE DATE: 01/10/17 0939 VISIT LOCKED DATE TIME: PHYSICIAN: GUTIERREZ ORELLANA RESOURCE: GUTIERREZ ORELLANA REASON FOR APPOINTMENT 1. LOW BACK HISTORY OF PRESENT ILLNESS HISTORY OF PRESENT ILLNESS: HERE FOR F/U.HAD RIGHT L4/5 RADIOFREQUENCY 6-5-17 AND CONTINUES TO BENEFIT.RATING PAIN VAS 1-2/10.PAIN IS AGGREVATED BY STRENUOUS ACTIVITY.REPORTS USING LESS PAIN MEDICATION FOR FLARE UPS SINCE PROCEDURE. PAIN THE PATIENT DESCRIBES THE PAIN... FALL RISK SCREENING: SCREENING :NO FALLS IN THE PAST YEAR CURRENT MEDICATIONS TAKING VALSARTAN-HYDROCHLOROTHIAZIDE 320-12.5 MG TABLET 1 TABLET ORALLY ONCE A DAY TAKING ATORVASTATIN CALCIUM 40 MG TABLET 1 TABLET ORALLY ONCE A DAY TAKING MELOXICAM 15 MG TABLET 1 TABLET ORALLY ONCE A DAY TAKING GABAPENTIN 300 MG CAPSULE 1 TAB ORALLY THREE TIMES A DAY TAKING HYDROCODONE-ACETAMINOPHEN 7.5-325 MG TABLET 1 TABLET NEEDED ORALLY EVERY 6 HRS NOT-TAKING ASPIRIN 500 MG TABLET DELAYED RELEASE 1 TABLET ORALLY BEFORE BEDTIME, NOTES: NONE MEDICATION LIST REVIEWED AND RECONCILED WITH THE PATIENT PAST MEDICAL HISTORY HTN ARTHRITIS BACK PAIN ALLERGIES N.K.D.A. SOCIAL HISTORY GENERAL: TOBACCO USE ARE YOU A: FORMER SMOKER . RECREATIONAL DRUG USE DRUG USE? NO . CAFFEINE CAFFEINE USE? NO . EXERCISE: NO REGULAR EXERCISE. MARITAL STATUS: . OTHERS AT HOME: SPOUSE, OTHER RELATIVE GRANDSON. PETS: 5 CATS. ISLAM [employer]AP[employer]IST. LANGUAGE SUDANESE. 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 PSYCHOLOGICAL HX TREATMENT NO . PAIN CLINIC PFS, CLERGY, PUBLIC HEALTH REFERRALS HAS THE PATIENT BEEN EDUCATED REGARDING HIS/HER PLAN OF CARE?YES HAS THE PATIENT BEEN EDUCATED REGARDING PAIN, THE RISK FOR PAIN, THE IMPORTANCE OF EFFECTIVE PAIN MANAGEMENT, AND THE PAIN ASSESSMENT PROCESS?YES PATIENT: ____. ADVANCE DIRECTIVES HEALTH CARE PROXY?YES NAME OF HCP S[facility] REBOLLAR CONTACT # FOR HCP [id number] [phone] POWER OF AUTOMATION ARCHITECT?NO RETIRED: YES. 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 REVIEW OF SYSTEMS REVIEWED BY: PROVIDER: GUTIERREZ SPRINGER . CONSTITUTIONAL: ANY CHANGE IN YOUR MEDICAL CONDITION? NO . CHILLS NO . FEVER NO . INFECTION: DO YOU HAVE NEW INFECTIONS? NO . DO YOU HAVE HISTORY OF MRSA? NO . MUSCULOSKELETAL: ANY NEW PATTERNS OF PAIN OR NUMBNESS? NO . GASTROENTEROLOGY: ANY NEW CHANGE IN BOWEL CONTROL? NO . GENITOURINARY: ANY NEW CHANGE IN BLADDER CONTROL? NO . IS THERE A CHANCE YOU COULD BE ? NO . HEMATOLOGY/LYMPH: DO YOU TAKE ANY BLOOD THINNERS? (FOR EXAMPLE- COUMADIN, PLAVIX, AGGRENOX, PLATEL, PRADAXA, OR XARELTO) NO . WHEN WAS YOUR LAST DOSE? DATE: TIME: . NEUROLOGY: HAVE YOU FALLEN IN THE PAST 6 MONTHS? NO . ANY NEW EXTREMITY NUMBNESS OR WEAKNESS? NO . CARDIOLOGY: DO YOU HAVE A PACEMAKER OR DEFIBRILLATOR? NO . RESPIRATORY: HAVE YOU BEEN SICK IN THE PAST WEEK? NO . FEVER NO . FLU LIKE SYMPTOMS? NO . COUGH NO . INTEGUMENTARY: DO YOU HAVE ANY RASHES OR OPEN SORES? NO . ALLERGIC/IMMUNO: ARE YOU ALLERGIC TO SHELLFISH OR IV DYE? NO . ANY NEW ALLERGIES? NO . PSYCHIATRIC: DO YOU HAVE THOUGHTS OF HURTING YOURSELF OR SOMEONE ELSE? NO . ARE YOU ABUSED, NEGLECTED, OR IN AN UNSAFE ENVIRONMENT? NO . ENDOCRINOLOGY: ARE YOU DIABETIC? NO . OTHER: DO YOU NEED ANY PRESCRIPTIONS? NO . IF YES, PLEASE LIST: ____ . ANY NEW PROBLEMS WITH YOUR MEDICATIONS? NO . WHEN DID YOU LAST EAT? ____ . WHEN DID YOU LAST DRINK? ____ . WHAT DID YOU LAST DRINK? ____ . NAME OF PERSON DRIVING YOU HOME? ____ . DO YOU HAVE ANY OTHER QUESTIONS OR CONCERNS NO . VITAL SIGNS WT 217 LBS, HT 73 IN, BMI 28.63 INDEX, BP 159/79 MM HG, HR 69 /MIN, RR 18 /MIN, TEMP 97.8 F, OXYGEN SAT % 98%, REVIEWED BY: GAB (DONE AT 0918). EXAMINATION GENERAL EXAMINATION: LUNGS:LUNG SOUNDS ARE CLEAR. HEART:HEART RATE REGULAR. MUSCULOSKELETAL:*, MUSCLE STRENGTH TESTING 5/5 BLE., PALPATION: NEGATIVE FOR PAIN OVER L/S SPINE. NEGATIVE FOR PAIN OVER L/S PARASPINALS. DIAGNOSTIC:MRI L/S SPINE -05-24-80-REVIEWED.. ASSESSMENTS SPONDYLOSIS OF LUMBAR REGION WITHOUT MYELOPATHY OR RADICULOPATHY - M47.816 (PRIMARY) POSTLAMINECTOMY SYNDROME, NOT ELSEWHERE CLASSIFIED - M96.1 (PRIMARY) TREATMENT SPONDYLOSIS OF LUMBAR REGION WITHOUT MYELOPATHY OR RADICULOPATHY NOTES: #128 - SCREENING BMI AND F/U PLAN IN : BMI ABOVE NORMAL TODAY. DISCUSSED WITH PATIENT NUTRITIONAL FOOD CHOICES TO ASSIST WITH WEIGHT LOSS. RECCOMMENDED REDUCING SALT, SUGAR, SODA INTAKE. RECOMMEND INCREASE ACTIVITY TO INCLUDE WALKING ON A REGULAR BASIS. PROFESSIONAL NUTRITIONAL NUTRITIONAL GUIDANCE WAS OFFERED AND WAS DECLINED. PROCEDURE CODES FA211 ESTABILISHED PATIENT [facility] CHARGE G8783 BP SCR PRFRM RCMDD DEFIND SCR INTVL G8730 PAIN ASSESS POS TOOL F/U PLAN DOC 3016F PT SCRND UNHLTHY [place] USE 1124F ACP DISCUSS-NO DSCNMKR DOCD 1036F TOBACCO NON-USER G8427 DOC MEDS VERIFIED W/PT OR RE G8417 BMI >=30 CALCUATE W/FOLLOWUP 3288F FALL RISK ASSESSMENT DOCD DISPOSITION & COMMUNICATION FOLLOW UP PT WILL CALL FOR F/U WHEN NEEDED ELECTRONICALLY SIGNED BY RACHEAL PARADA ON 01/10/2017 AT 12:14 PM EDT DISCLAIMER : THIS IS A VISIT SUMMARY EXTRACTED FROM THE [employer] CHART. IT IS NOT A COPY OF THE [employer] PROGRESS NOTE. MTDD
== END ==
LOC: M PAIN 09:00
PROVIDERS: ATTEND Nurse Practitioner Family
DX: M96.1 Postlaminectomy syndrome, not elsewhere classified (principal); M47.816 Spondylosis without myelopathy or radiculopathy, lumbar region; I10 Essential (primary) hypertension; M19.90 Unspecified osteoarthritis, unspecified site; Z87.891 Personal history of nicotine dependence; Z79.899 Other long term (current) drug therapy

== ENCOUNTER → 2017-05-22 | Outpatient (CLI) | payer MEDICARE, OTHER ==
--- NOTE | 2017-05-22 09:41 | REP ---
CT LUMBAR SPINE WITHOUT CONTRAST: HISTORY: Spinal stenosis. COMPARISON: 06/06/2016. A diffuse disc bulge is present at the L1-2 level. There is hypertrophy of the ligamenta flava and posterior articulating facets. These finding produce minimal central canal stenosis. The L1 nerves exit the neural foramina without compression. There is 6 mm of lateral subluxation of L1 on 2. A diffuse disc bulge is present at the L2-3 level. There is hypertrophy of the ligamenta flava and posterior articulating facets. These finding produce moderate central canal stenosis. The L2 nerves exit the neural foramina without compression. A diffuse disc bulge is present at the L3-4 level. There is hypertrophy of the ligamenta flava and posterior articulating facets. These finding produce severe central canal stenosis. There is compression of the L3 nerves in the neural foramina. There are 10 mm of left lateral subluxation of L3 on 4. A left laminectomy defect is present. A diffuse disc bulge is present at the L4-5 level. There is hypertrophy of the ligamenta flava and posterior articulating facets. These findings produce severe central canal stenosis. There is compression of the L4 nerves in the neural foramina. A diffuse disc bulge with associated osteophyte formation is present at the L5-S1 level. There is minimal compression of the thecal sac. There is hypertrophy of the posterior articulating facets. There is compression of the L5 nerves in the neural foramina. A laminectomy defect is present. The L1-2 through L5-S1 intervertebral discs are decreased in height. Vacuum phenomenon is present at the L3-4 through L5-S1 levels. These findings are consistent with disc degeneration. There is scoliosis convex to the left. IMPRESSION: 1. Minimal central canal stenosis at the L1-2 level secondary to disc bulge, ligamentous, and facet hypertrophy. 2. Moderate central canal stenosis at the L2-3 level second to disc bulge, ligamentous, and facet hypertrophy. 3. Severe central canal stenosis at the L3-4 level secondary to disc bulge, ligamentous, and facet hypertrophy. There is compression of the L3 nerves in the neural foramina. A left laminectomy defect is present. 4. Severe central canal stenosis at the L4-5 level secondary to disc bulge ligamentous and facet hypertrophy. There is compression of the L4 nerves in the neural foramina. 5. Diffuse disc bugle with associated osteophyte formation at the L5-S1 level with minimal thecal sac compression. There is compression of the L5 nerves in the neural foramina. A laminectomy defect is present. There is no significant change compared to the previous study. Signed by Tarik Wise MD 05/22/2017 09:53 A
== END ==
LOC: M RAD 08:26
PROVIDERS: ATTEND Neurological Surgery
DX: M96.1 Postlaminectomy syndrome, not elsewhere classified (principal); M51.27 Other intervertebral disc displacement, lumbosacral region; M48.061 Spinal stenosis, lumbar region without neurogenic claudication

== ENCOUNTER → 2018-03-08 | Outpatient (CLI) | payer MEDICARE, OTHER | LOC: M RAD 13:24 | DX: M41.26 Other idiopathic scoliosis, lumbar region (principal); Z98.890 Other specified postprocedural states | CPT/HCPCS: 72072 ==

== ENCOUNTER → 2018-06-11 | Outpatient (CLI) | payer MEDICARE, OTHER ==
[~2018-06-11] MED LIST changes: +ATOR40TA75 PO; -BUPIVACAINE HCL 0.25% 30 ML VIAL As Ordered ONE; +HYDR-3781 PO; +IRBE150T12 PO; -ISOVUE-M 300 61% 15ML VIAL (Q9967) As Ordered ONE; -LIDOCAINE 1% SDV INJ 30 ML VIAL As Ordered ONE; +MELO15TA28 PO; +OMEP40CA2 PO; -TRIAMCINOLONE ACETONIDE SUSP 40 MG/ML VIAL (J3301) As Ordered ONE
--- NOTE | 2018-06-11 12:59 | REP ---
LEFT KNEE, FIVE VIEWS: HISTORY: Pain. There is no acute fracture or dislocation. There is mild narrowing of the medial knee joint space. The lateral knee joint space and patellofemoral joint space are normal in appearance. An osteophyte is present on the patella. IMPRESSION:Degenerative change as described above. Electronically Signed by Tarik Wise MD 06/11/2018 01:00 P
== END ==
LOC: M WUC 11:46
PROVIDERS: ATTEND Internal Medicine
DX: M17.12 Unilateral primary osteoarthritis, left knee (principal); M25.762 Osteophyte, left knee; M25.562 Pain in left knee

== ENCOUNTER 2018-06-13 07:58 | Day surgery (SDC) | payer MEDICARE, OTHER ==
[~2018-06-13] VITALS: Ht 188 cm; Wt 98.4 kg
[~2018-06-13 07:58] MED LIST changes: -HYDR-3781 PO; +HYDR2.5T34 PO
[2018-06-13] MEDS ORDERED: NS 1,000 ML IV ONE (08:15)
[2018-06-13] MEDS ORDERED: LIDOCAINE 2% INJ 100 MG/5 ML SDV (FOR ANES.) As Ordered ONE (08:26)
[2018-06-13] MEDS ORDERED: PROPOFOL 200 MG/20 ML VIAL As Ordered ONE ×3 (08:26→09:35)
[2018-06-13] MEDS ORDERED: fentaNYL 100 MCG/2 ML INJECTION (J3010) As Ordered ONE (09:10)
[2018-06-13] MEDS ORDERED: MORPHINE 1MG/ML IN 0.9% NACL 100ML IV BAG As Ordered ONE (09:12)
--- NOTE | 2018-06-13 09:25 | ROOR ---
Patient Name: Avni Yadav Procedure Date: 06/13/2018 9:08 AM Date of : 1945 Age: 72 Room: [facility] Gender: Male Note Status: Finalized Procedure: Upper Endoscopy + Biopsies Indications: Heartburn, Exclusion of Bauman's esophagus Providers: Tushar Wolfe MD Referring MD: GHANSHYAM LEAL DO Requesting Provider: Medicines: Monitored Anesthesia Care Complications: No immediate complications. Procedure: Pre-Anesthesia Assessment: - The heart rate, respiratory rate, oxygen saturations, blood pressure, adequacy of pulmonary ventilation, and response to care were monitored throughout the procedure. The Endoscope was introduced through the mouth, and advanced to the second part of duodenum. The upper GI endoscopy was accomplished without difficulty. The patient tolerated the procedure well. Findings: The Z-line was irregular and was found 40 cm from the incisors. Multiple biopsies were obtained with cold forceps for evaluation to rule out Bauman's Esophagus randomly at the gastroesophageal junction. A small hiatal hernia was present. No other significant abnormalities were identified in a careful examination of the stomach. The exam of the duodenum was otherwise normal. Impression: - Z-line irregular, 40 cm from the incisors. - Small hiatal hernia. - Multiple biopsies were obtained at the gastroesophageal junction. - The examination was otherwise normal. Recommendation: - Patient has a contact number available for emergencies. The signs and symptoms of potential delayed complications were discussed with the patient. Return to normal activities tomorrow. Written discharge instructions were provided to the patient. - High fiber diet. - Discharge patient to home. - Continue present medications. - Follow an antireflux regimen. - Await pathology results. - Telephone GI clinic for pathology results in 1 week. - Return to referring physician. - The findings and recommendations were discussed with the patient's family. Tushar Wolfe MD Tushar Wolfe MD 06/13/2018 9:25:02 AM This report has been signed electronically. Number of Addenda: 0 Note Initiated On: 06/13/2018 9:08 AM Estimated Blood Loss: Estimated blood loss: none.
--- NOTE | 2018-06-13 09:44 | ROOR ---
Patient Name: Avni Yadav Procedure Date: 06/13/2018 9:10 AM Date of : 1945 Age: 72 Room: [facility] Gender: Male Note Status: Finalized Procedure: Total Colonoscopy to Cecum Indications: Screening for colorectal malignant neoplasm Providers: Tushar Wolfe MD Referring MD: GHANSHYAM LEAL DO Requesting Provider: Medicines: Monitored Anesthesia Care Complications: No immediate complications. Procedure: Pre-Anesthesia Assessment: - The heart rate, respiratory rate, oxygen saturations, blood pressure, adequacy of pulmonary ventilation, and response to care were monitored throughout the procedure. The Colonoscope was introduced through the anus and advanced to the cecum, identified by appendiceal orifice and ileocecal valve. The colonoscopy was performed without difficulty. The patient tolerated the procedure well. The quality of the bowel preparation was excellent. Findings: The perianal and digital rectal examinations were normal. Non-bleeding internal hemorrhoids were found during retroflexion. The hemorrhoids were medium-sized and Grade I (internal hemorrhoids that do not prolapse). Multiple small and large-mouthed diverticula were found in the recto-sigmoid colon, sigmoid colon and descending colon. The exam was otherwise without abnormality on direct and retroflexion views. Impression: - Non-bleeding internal hemorrhoids. - Diverticulosis in the recto-sigmoid colon, in the sigmoid colon and in the descending colon. - The examination was otherwise normal on direct and retroflexion views. - No specimens collected. - The exam was otherwise normal to the cecum. Recommendation: - Patient has a contact number available for emergencies. The signs and symptoms of potential delayed complications were discussed with the patient. Return to normal activities tomorrow. Written discharge instructions were provided to the patient. - High fiber diet. - Discharge patient to home. - Continue present medications. - Repeat colonoscopy for symptoms only. - The findings and recommendations were discussed with the patient's family. Tushar Wolfe MD Tushar Wolfe MD 06/13/2018 9:44:00 AM This report has been signed electronically. Number of Addenda: 0 Note Initiated On: 06/13/2018 9:10 AM Estimated Blood Loss: Estimated blood loss: none.
[2018-06-13 10:00] VITALS: BP 142/86
== END 2018-06-13 10:16 | disposition home or self-care (01) ==
LOC: M OPP 07:58
PROVIDERS: ATTEND Internal Medicine Gastroenterology
DX: Z12.11 Encounter for screening for malignant neoplasm of colon (principal); K64.0 First degree hemorrhoids; K57.90 Diverticulosis of intestine, part unspecified, without perforation or abscess without bleeding; R12 Heartburn; R10.9 Unspecified abdominal pain; K22.8 Other specified diseases of esophagus; K44.9 Diaphragmatic hernia without obstruction or gangrene; I10 Essential (primary) hypertension; K21.9 Gastro-esophageal reflux disease without esophagitis; M19.90 Unspecified osteoarthritis, unspecified site; M54.9 Dorsalgia, unspecified; R06.83 Snoring; Z88.5 Allergy status to narcotic agent; Z79.899 Other long term (current) drug therapy; Z80.0 Family history of malignant neoplasm of digestive organs
CPT/HCPCS: 43239; 88305; G0121; J3010

== ENCOUNTER → 2018-06-14 | Outpatient (CLI) | payer MEDICARE, OTHER ==
[~2018-06-14] MED LIST changes: +HYDR-3781 PO; -HYDR2.5T34 PO
--- NOTE | 2018-06-14 12:23 | REP ---
Duplex extremity venous ultrasound: Left lower extremity. History: Left leg swelling times 2 weeks with pain. Question DVT fallon Findings: The deep veins are anechoic and fully compressible from the groin to the popliteal fossa in the left lower extremity. Color flow imaging is homogeneous. Spectral Doppler interrogation demonstrates intact respiratory variation in flow and normal manual augmentation of flow. There is no evidence of deep vein thrombosis. A complex fluid collection is seen in the medial soft tissues at the level of the knee. This elongate collection measures 6.5 x 3.0 x 1.5 cm. It does not appear to be a superficial vein thrombus but could be a a para meniscal cyst or atypical Castellanos's cyst. It is more medial than the usual Castellanos's cyst. Impression: Complex fluid collection in the soft tissues medial to the knee on the left as above. Otherwise negative left lower extremity duplex venous ultrasound. No evidence of deep vein thrombosis. Electronically Signed by Jace Amezcua MD 06/14/2018 12:15 P
== END ==
LOC: M RAD 10:53
PROVIDERS: ATTEND Orthopaedic Surgery Sports Medicine
DX: R22.42 Localized swelling, mass and lump, left lower limb (principal)

== ENCOUNTER → 2020-06-17 | Outpatient (CLI) | payer MEDICARE, OTHER ==
[~2020-06-17] MED LIST changes: -HYDR-3781 PO; +HYDR2.5T34 PO; -IRBE150T12 PO; +IRBE150T7 PO; -OMEP40CA2 PO; +OMEP40CA97 PO
--- NOTE | 2020-06-17 12:56 | REPVR ---
PROCEDURE INFORMATION: Exam: MR Cervical Spine Without Contrast Exam date and time: 06/17/2020 12:38 PM Age: 74 years old Clinical indication: Neck pain; Patient HX: Back pain weakness instability; Additional info: Eval stenosis, balance difficulty, pseudoarthrosis TECHNIQUE: Imaging protocol: Multiplanar magnetic resonance images of the cervical spine without contrast. COMPARISON: No relevant prior studies available. FINDINGS: Vertebrae: There is 3 mm of grade 1 anterolisthesis of C4 with respect to C5. Normal vertebral body alignment is otherwise preserved. There is moderate to severe intervertebral disc space loss at C5/6 and C6/7. Spinal cord: Normal signal. No cord compression. C2-C3: There is a diffuse disc osteophyte complex. There is moderate facet hypertrophy. There is moderate right and severe left neural foraminal narrowing. There is mild canal stenosis. C3-C4: There is a diffuse disc osteophyte complex. There is moderate facet hypertrophy. There is severe bilateral neural foraminal narrowing. C4-C5: There is a diffuse disc osteophyte complex/uncovering related to listhesis. There is severe facet hypertrophy. There is severe bilateral neural foraminal narrowing. There is mild canal stenosis. C5-C6: There is a diffuse disc osteophyte complex. There is mild facet hypertrophy. There is severe bilateral neural foraminal narrowing. C6-C7: There is a diffuse disc osteophyte complex. There is mild facet hypertrophy. There is moderate to severe right and severe left neural foraminal narrowing. C7-T1: No significant disc disease. No significant spinal stenosis. Vertebral arteries: Expected flow voids in the vertebral arteries. Soft tissues: Unremarkable. IMPRESSION: Degenerative disc disease and spondylosis, with multilevel moderate to severe neural foraminal narrowing. Electronically signed by: Elisha Hubbard On 06/17/2020 12:56:47 PM
--- NOTE | 2020-06-17 13:08 | REPVR ---
PROCEDURE INFORMATION: Exam: MR Thoracic Spine Without Contrast Exam date and time: 06/17/2020 12:38 PM Age: 74 years old Clinical indication: Pain in thoracic intervertebral disc disorder; Patient HX: Back pain weakness instability; Additional info: Eval stenosis, balance difficulty, pseudoarthrosis TECHNIQUE: Imaging protocol: Multiplanar magnetic resonance images of the thoracic spine without intravenous contrast. COMPARISON: CT Spine,thoracic w/o contrast 06/17/2020 10:49 AM FINDINGS: Vertebrae: There is accentuation of the normal thoracic kyphosis. There is no fracture. Spinal cord: Normal signal. No cord compression. T1-T2: There is diffuse disc bulging. There is mild facet hypertrophy. There is mild bilateral neural foraminal narrowing. T2-T3: There is diffuse disc bulging. There is mild facet hypertrophy. There is mild right and moderate left neural foraminal narrowing. T3-T4: There is diffuse disc bulging. There is mild facet hypertrophy. There is muqu-ud-uaglhyln bilateral neural foraminal narrowing. T4-T5: There is shallow disc bulging. There is mild facet hypertrophy. There is moderate right and mild left neural foraminal narrowing. T5-T6: There is disc bulging with a left paracentral protrusion. There indents the ventral thecal sac. There is mild facet hypertrophy. There is moderate left neural foraminal narrowing. T6-T7: There is shallow disc bulging. There is mild facet hypertrophy. There is moderate left neural foraminal narrowing. T7-T8: There is diffuse disc bulging with a central protrusion. This indents the ventral thecal sac. There is mild facet hypertrophy. There is moderate right neural foraminal narrowing. T8-T9: There is diffuse disc bulging with a right paracentral/subarticular protrusion. There is mild facet hypertrophy. There is mild right neural foraminal narrowing. T9-T10: There is diffuse disc bulging with a central/right paracentral protrusion. There is mild facet hypertrophy. There is a right perineural cyst. There is mild left neural foraminal narrowing. T10-T11: There is shallow disc bulging with a left paracentral protrusion. This indents the ventral thecal sac. There is mild facet hypertrophy. There is flnx-rb-htapppch right and mild left neural foraminal narrowing. T11-T12: There is shallow disc bulging. There is moderate facet hypertrophy. There is moderate left neural foraminal narrowing. Soft tissues: Unremarkable. IMPRESSION: Degenerative disc disease and spondylosis, with multilevel xiyw-yx-tjeulifx neural foraminal narrowing. Electronically signed by: Elisha Hubbard On 06/17/2020 13:08:55 PM
--- NOTE | 2020-06-17 14:41 | REPVR ---
PROCEDURE INFORMATION: Exam: CT Thoracic Spine Without Contrast Exam date and time: 06/17/2020 10:46 AM Age: 74 years old Clinical indication: Other: Eval stenosis, balance difficulty, pseudoarthrosis TECHNIQUE: Imaging protocol: Computed tomography images of the thoracic spine without contrast. Radiation optimization: All CT scans at this facility use at least one of these dose optimization techniques: automated exposure control; mA and/or kV adjustment per patient size (includes targeted exams where dose is matched to clinical indication); or iterative reconstruction. COMPARISON: CR Spine, Thoracic 3 VIEWS 03/08/2018 1:49 PM FINDINGS: Vertebrae: There is a mild upper thoracic dextroscoliosis. There is accentuation of the normal thoracic kyphosis. There is no acute fracture or listhesis. Discs/Spinal canal/Neural foramina: There is multilevel moderate to severe intervertebral disc space loss. There are coarse ventral bridging osteophytes at multiple levels.. Soft tissues: Unremarkable. IMPRESSION: No acute fracture. Chronic changes. Electronically signed by: Elisha Hubbard On 06/17/2020 14:41:50 PM
--- NOTE | 2020-06-17 15:32 | REPVR ---
PROCEDURE INFORMATION: Exam: CT Lumbar Spine Without Contrast Exam date and time: 06/17/2020 10:46 AM Age: 74 years old Clinical indication: Other: Eval stenosis, balance difficulty, pseudoarthrosis; Prior surgery; Surgery date: 6+ months TECHNIQUE: Imaging protocol: Computed tomography images of the lumbar spine without contrast. Radiation optimization: All CT scans at this facility use at least one of these dose optimization techniques: automated exposure control; mA and/or kV adjustment per patient size (includes targeted exams where dose is matched to clinical indication); or iterative reconstruction. COMPARISON: CT Spine, lumbar w/o contrast 05/22/2017 8:39 AM FINDINGS: Vertebrae: There are vertical rods with pedicle screws from L1 to the sacroiliac joints. There is abnormal lucency surrounding the L1 fixation screws, worrisome for loosening. There extensive endplate erosive changes at T12/L1, with some bony sclerotic change. Discitis/osteomyelitis should be excluded. There is severe intervertebral disc space loss at L1/2. There is a pronounced lumbar levoscoliosis. L1-L2: There are fusion changes with laminectomy. There is dorsal spondylitic ridging. There is facet hypertrophy. There is mild bilateral neural foraminal narrowing. L2-L3: There are fusion changes with laminectomy. There is dorsal spondylitic ridging. The spinal canal and neural foramina are patent. L3-L4: There are fusion changes with laminectomy. There is dorsal spondylitic ridging. There is facet hypertrophy. There is nsck-jt-citwsgcx right neural foraminal narrowing. L4-L5: There are fusion changes with laminectomy. There is dorsal spondylitic ridging. There is facet hypertrophy. There is mild bilateral neural foraminal narrowing. L5-S1: There are fusion changes with laminectomy. There is dorsal spondylitic ridging. There is facet hypertrophy. There is mild right and moderate left neural foraminal narrowing. Soft tissues: Unremarkable. IMPRESSION: Abnormal lucency surrounding the L1 pedicle screws, worrisome for lucency. This is associated with pronounced endplate destructive changes at T12/L1, with sclerosis, worrisome for infection. Contrast-enhanced MRI may be of benefit. Electronically signed by: Elisha Hubbard On 06/17/2020 15:32:51 PM
== END ==
LOC: M RAD 10:12
PROVIDERS: ATTEND Physician Assistant Medical
DX: M41.35 Thoracogenic scoliosis, thoracolumbar region (principal); M96.0 Pseudarthrosis after fusion or arthrodesis; R26.89 Other abnormalities of gait and mobility; Z98.1 Arthrodesis status

== ENCOUNTER 2020-08-26 10:01 | Emergency (ER) | payer MEDICARE, OTHER ==
[~2020-08-26] VITALS: Ht 188 cm; Wt 90.1 kg
[2020-08-26] MEDS ORDERED: OXYC-517 (10:16)
[2020-08-26] MEDS ORDERED: DICY10CA13 (10:16)
[2020-08-26 11:02] LABS: HEMATOCRIT 34.4 % (42.0-52.0); HEMOGLOBIN 11.4 g/dl (13.5-17.5); MEAN CORPUSCULAR HEMOGLOBIN 31.4 pg (27.0-33.0); MEAN CORPUSCULAR HGB CONC 33.1 g/dl (32.0-36.5); MEAN CORPUSCULAR VOLUME 94.8 fl (80.0-96.0); PLATELET COUNT, AUTOMATED 268 10^3/uL (150-450); RED BLOOD COUNT 3.63 10^6/uL (4.30-6.10); WHITE BLOOD COUNT 3.4 10^3/uL (4.0-10.0)
[2020-08-26] MEDS ORDERED: NS 500 ML IV ONE (11:15)
[2020-08-26] MEDS ORDERED: PERCOCET 5MG/325MG TAB PO ONE (11:15)
[2020-08-26 11:34] LABS: BILIRUBIN,DIRECT 0.2 MG/DL (0.0-0.2); BILIRUBIN,TOTAL 0.5 MG/DL (0.2-1.0); TOTAL PROTEIN 6.1 GM/DL (6.4-8.2)
[2020-08-26 11:43] LABS: ATYPICAL LYMPH 4 % (0-5); BASOPHILS 3 % (0-1); EOSINOPHILS 1 % (0-3); LYMPHOCYTES 25 % (16-44); MONOCYTES 18 % (0-5); NEUTROPHILS 49 % (28-66); PLATELET ESTIMATE NORMAL (NORMAL)
[2020-08-26 12:27] VITALS: BP 125/67
--- NOTE | 2020-08-26 14:25 | ECGEPIP ---
[facility] - ED Test Date: 2020-08-26 Pat Name: SHANTEL REBOLLAR Department: Room: - Gender: Male [employer]: : 1945 Requested By: Melania Olivares Order Number: [id number] Reading MD: Melania Olivares Measurements Intervals [place] Rate: 74 P: 6 [place]: 180 QRS: -10 QRSD: 90 T: 17 QT: 396 QTc: 439 Interpretive Statements Normal sinus rhythm No prior Electronically Signed on 08-26-2020 14:25:25 EST by Melania Olivares
== END 2020-08-26 12:41 | disposition home or self-care (01) ==
LOC: M ED 10:01
DX: G89.29 Other chronic pain (principal); R10.9 Unspecified abdominal pain; I10 Essential (primary) hypertension; E78.5 Hyperlipidemia, unspecified; K58.9 Irritable bowel syndrome, unspecified; Z79.899 Other long term (current) drug therapy; Z88.5 Allergy status to narcotic agent

== ENCOUNTER → 2020-09-09 | Outpatient (CLI) | payer MEDICARE, OTHER ==
[~2020-09-09] MED LIST changes: +DICY10CA13; +OXYC-517; +PROHANCE 279.3MG/ML 15ML VIAL As Ordered ONE
--- NOTE | 2020-09-09 15:46 | REP ---
INDICATION: UPPER ABD PAIN, WEIGHT LOSS, VASCULAR DISORDERS. COMPARISON: None. TECHNIQUE: Pre and post contrast imaging is acquired. 3D MR angiography is acquired post intravenous injection of 30 mL of ProHance. Source coronal images are a reviewed and maximum intensity projection images are provided. FINDINGS: Preliminary T2 2 weighted scans demonstrate multiple small parapelvic cysts bilaterally without evidence of hydronephrosis. No filling defect is seen in the lumen of the gallbladder. No hepatic or splenic lesion is seen. Magnetic field susceptibility artifact is seen emanating from the posterior elements of the thoracolumbar spine status post fusion. There appears to be a fluid collection superficial to the fusion hardware along the lumbar spine in the midline. This measures 10.4 cm in right to left dimension by 3.4 cm in anteroposterior thickness by 15.5 cm in craniocaudal span. No retroperitoneal or intra-abdominal fluid collection is seen. MR angiographic images demonstrate tortuosity but normal caliber in the suprarenal and infrarenal abdominal aorta. The common and external iliac and internal iliac arteries are tortuous but bilaterally widely patent. The celiac axis and superior mesenteric artery are patent and unremarkable. Source images demonstrate flow signal in the inferior mesenteric artery although its origin is not well seen and I cannot exclude mild stenosis at the origin of the SRIDEVI. The left renal artery is patent without evidence of stenosis. The right renal artery is singular and shows no definite evidence of stenosis. 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 No other visceral artery stenosis or occlusion is seen. Tortuosity of the abdominal aorta and iliac vessels. No other vascular abnormality. Status post extensive lumbar multilevel lumbar spine fusion surgery with perioperative dorsal extra-spinal soft tissue fluid collection noted incidentally as above. <Electronically signed by Paolo Amezcua > 09/09/20 [id number]
== END ==
LOC: M RAD 13:20
PROVIDERS: ATTEND Internal Medicine Gastroenterology
DX: R10.10 Upper abdominal pain, unspecified (principal); R63.4 Abnormal weight loss; K55.1 Chronic vascular disorders of intestine
CPT/HCPCS: A9576; C8902

== ENCOUNTER → 2020-09-18 | Outpatient (CLI) | payer MEDICARE, OTHER ==
[~2020-09-18] MED LIST changes: -PROHANCE 279.3MG/ML 15ML VIAL As Ordered ONE; +SUCR1TAB56 PO
== END ==
LOC: M LABSMTC 12:57
PROVIDERS: ATTEND Anesthesiology
DX: Z01.812 Encounter for preprocedural laboratory examination (principal); Z20.822 Contact with and (suspected) exposure to COVID-19

== ENCOUNTER 2020-09-21 09:26 | Emergency (ER) | payer MEDICARE, OTHER ==
[~2020-09-21] VITALS: Ht 188 cm; Wt 87.2 kg
[~2020-09-21 09:26] MED LIST changes: -OXYC-517; +OXYC-517 PO
[2020-09-21 09:27] VITALS: BP 134/83
[2020-09-21] MEDS ORDERED: ceFAZolin SOD 2 GM in IV 1 EA IV ONE (10:20)
[2020-09-21] MEDS ORDERED: KETOROLAC 30 MG/ML 1ML VIAL IV ONE (10:25)
[2020-09-21 10:49] LABS: BASO % 0.3 % (0.0-1.0); EOS # 0.2 10^3/uL (0.0-0.5); EOS % 2.5 % (0.0-3.0); HEMATOCRIT 34.7 % (42.0-52.0); HEMOGLOBIN 10.8 g/dl (13.5-17.5); LYMPH # 1.1 10^3/uL (1.5-5.0); LYMPH % 18.1 % (24.0-44.0); MEAN CORPUSCULAR HEMOGLOBIN 28.6 pg (27.0-33.0); MEAN CORPUSCULAR HGB CONC 31.1 g/dl (32.0-36.5); MEAN CORPUSCULAR VOLUME 91.8 fl (80.0-96.0); MONO # 0.6 10^3/uL (0.0-0.8); MONO % 9.7 % (2.0-8.0); NEUTROPHILS # 4.2 10^3/uL (1.5-8.5); NEUTROPHILS % 68.9 % (36.0-66.0); PLATELET COUNT, AUTOMATED 241 10^3/uL (150-450); RED BLOOD COUNT 3.78 10^6/uL (4.30-6.10); WHITE BLOOD COUNT 6.1 10^3/uL (4.0-10.0)
--- NOTE | 2020-09-21 10:52 | REP ---
INDICATION: R/O DVT COMPARISON: None. TECHNIQUE: [place] scale and color Doppler evaluation using linear high frequency transducer. FINDINGS: Ultrasound examination of the left lower extremity deep venous structures from the common femoral vein to the popliteal vein demonstrates normal compressibility flow and wave patterns in response to respiration and augmentation. There is no evidence for deep venous thrombosis. Subcutaneous edema and erythema primarily involving the calf noted. IMPRESSION: No evidence for deep venous thrombosis. <Electronically signed by Candido Thomas > 09/21/20 [id number]
[2020-09-21 11:16] LABS: ALBUMIN 2.9 GM/DL (3.2-5.2); ALT/SGPT 32 U/L (12-78); BILIRUBIN,DIRECT 0.2 MG/DL (0.0-0.2); BILIRUBIN,TOTAL 0.5 MG/DL (0.2-1.0); BLOOD UREA NITROGEN 13 MG/DL (7-18); CARBON DIOXIDE LEVEL 28 MEQ/L (21-32); CHLORIDE LEVEL 109 MEQ/L (98-107); GLOMERULAR FILTRATION RATE > 60.0 (>42); GLUCOSE, FASTING 99 MG/DL (70-100); POTASSIUM SERUM 4.7 MEQ/L (3.5-5.1); SODIUM LEVEL 140 MEQ/L (136-145); TOTAL PROTEIN 6.7 GM/DL (6.4-8.2)
[2020-09-21] MEDS ORDERED: CEPH500T PO (11:41)
== END 2020-09-21 12:45 | disposition home or self-care (01) ==
LOC: M ED 09:26
DX: L03.116 Cellulitis of left lower limb (principal); I10 Essential (primary) hypertension; E78.5 Hyperlipidemia, unspecified; K58.9 Irritable bowel syndrome, unspecified; G89.29 Other chronic pain; M54.9 Dorsalgia, unspecified; Z87.891 Personal history of nicotine dependence; Z79.899 Other long term (current) drug therapy; Z88.5 Allergy status to narcotic agent
CPT/HCPCS: 80048; 80076; 83605; 85025; 93971; 96365; 96366; 96375; 99283; J0690; J1885

== ENCOUNTER 2020-09-23 12:24 | Day surgery (SDC) | payer MEDICARE, OTHER ==
[~2020-09-23] VITALS: Ht 188 cm; Wt 86.2 kg
[~2020-09-23 12:24] MED LIST changes: +CEPH500T PO
[2020-09-23] MEDS ORDERED: fentaNYL 100 MCG/2 ML INJECTION (J3010) As Ordered ONE (13:42)
[2020-09-23] MEDS ORDERED: LIDOCAINE 2% 100MG/5ML SDV (FOR ANES.) As Ordered ONE (13:42)
[2020-09-23] MEDS ORDERED: propofoL 200 MG/20 ML VIAL As Ordered ONE (13:42)
--- NOTE | 2020-09-23 14:31 | ROOR ---
Patient Name: Avni Yadav Procedure Date: 09/23/2020 2:12 PM Date of : 1945 Age: 75 Room: [facility] Gender: Male Note Status: Finalized Procedure: Upper Endoscopy + Biopsies Indications: Heartburn, Exclusion of Bauman's esophagus Providers: Tushar Wolfe MD Referring MD: GHANSHYAM LEAL DO Requesting Provider: Medicines: Monitored Anesthesia Care Complications: No immediate complications. Procedure: Pre-Anesthesia Assessment: - The heart rate, respiratory rate, oxygen saturations, blood pressure, adequacy of pulmonary ventilation, and response to care were monitored throughout the procedure. The Endoscope was introduced through the mouth, and advanced to the second part of duodenum. The upper GI endoscopy was accomplished without difficulty. The patient tolerated the procedure well. Findings: The Z-line was variable and was found 40 cm from the incisors. Multiple biopsies were obtained with cold forceps for evaluation to rule out Bauman's Esophagus randomly at the gastroesophageal junction. The exam of the stomach was otherwise normal. Biopsies were taken with a cold forceps in the gastric antrum for Helicobacter pylori testing. The exam of the duodenum was otherwise normal. Biopsies for histology were taken with a cold forceps in the first portion of the duodenum for evaluation of celiac disease. The exam was otherwise without abnormality. Impression: - Z-line variable, 40 cm from the incisors. - The examination was otherwise normal. - Multiple biopsies were obtained at the gastroesophageal junction. - Biopsies were taken with a cold forceps for Helicobacter pylori testing. - Biopsies were taken with a cold forceps for evaluation of celiac disease. - The examination was otherwise normal. Recommendation: - Patient has a contact number available for emergencies. The signs and symptoms of potential delayed complications were discussed with the patient. Return to normal activities tomorrow. Written discharge instructions were provided to the patient. - Discharge patient to home. - High fiber diet. - Follow an antireflux regimen. - Continue present medications. - Await pathology results. - Telephone GI clinic for pathology results in 1 week. - Return to referring physician. - The findings and recommendations were discussed with the patient. Procedure Code(s): --- Professional --- 38181, Esophagogastroduodenoscopy, flexible, transoral; with biopsy, single or multiple Diagnosis Code(s): --- Professional --- K22.8, Other specified diseases of esophagus R12, Heartburn CPT copyright 2019 [employer]. All rights reserved. The codes documented in this report are preliminary and upon vice chancellor review may be revised to meet current compliance requirements. Tushar Wolfe MD Tushar Wolfe MD 09/23/2020 2:31:23 PM Electronically signed by Tushar Wolfe MD Number of Addenda: 0 Note Initiated On: 09/23/2020 2:12 PM Estimated Blood Loss: Estimated blood loss: none.
[2020-09-23] MEDS ORDERED: ePHEDrine SULFATE 25 MG/5 ML(5MG/ML) SYRINGE As Ordered ONE (14:43)
--- NOTE | 2020-09-23 14:54 | ROOR ---
Patient Name: Avni Yadav Procedure Date: 09/23/2020 2:13 PM Date of : 1945 Age: 75 Room: [facility] Gender: Male Note Status: Finalized Procedure: Total Colonoscopy to Cecum Indications: Lower abdominal pain, Weight loss Providers: Tushar Wolfe MD Referring MD: GHANSHYAM LEAL DO Requesting Provider: Medicines: Monitored Anesthesia Care Complications: No immediate complications. Procedure: Pre-Anesthesia Assessment: - The heart rate, respiratory rate, oxygen saturations, blood pressure, adequacy of pulmonary ventilation, and response to care were monitored throughout the procedure. The Colonoscope was introduced through the anus and advanced to the cecum, identified by appendiceal orifice and ileocecal valve. The colonoscopy was performed without difficulty. The patient tolerated the procedure well. The quality of the bowel preparation was good. Findings: The perianal and digital rectal examinations were normal. Non-bleeding internal hemorrhoids were found during retroflexion. The hemorrhoids were small and Grade I (internal hemorrhoids that do not prolapse). Scattered small-mouthed diverticula were found in the recto-sigmoid colon, sigmoid colon and descending colon. The exam was otherwise without abnormality on direct and retroflexion views. Impression: - Non-bleeding internal hemorrhoids. - Diverticulosis in the recto-sigmoid colon, in the sigmoid colon and in the descending colon. - The examination was otherwise normal on direct and retroflexion views. - No specimens collected. - The exam was otherwise normal to the cecum. Recommendation: - Patient has a contact number available for emergencies. The signs and symptoms of potential delayed complications were discussed with the patient. Return to normal activities tomorrow. Written discharge instructions were provided to the patient. - High fiber diet. - Discharge patient to home. - Continue present medications. - Repeat colonoscopy is not recommended due to current age (66 years or older) for screening purposes. - Return to referring physician. - The findings and recommendations were discussed with the patient. Procedure Code(s): --- Professional --- 86764, Colonoscopy, flexible; diagnostic, including collection of specimen(s) by brushing or washing, when performed (separate procedure) Diagnosis Code(s): --- Professional --- K64.0, First degree hemorrhoids R10.30, Lower abdominal pain, unspecified R63.4, Abnormal weight loss K57.30, Diverticulosis of large intestine without perforation or abscess without bleeding CPT copyright 2019 [employer]. All rights reserved. The codes documented in this report are preliminary and upon corporate attorney review may be revised to meet current compliance requirements. Tushar Wolfe MD Tushar Wolfe MD 09/23/2020 2:54:01 PM Electronically signed by Tushar Wolfe MD Number of Addenda: 0 Note Initiated On: 09/23/2020 2:13 PM Estimated Blood Loss: Estimated blood loss: none.
[2020-09-23 15:19] VITALS: BP 148/83
[2020-09-23] MEDS ORDERED: ONDA-83 PO (15:57)
[2020-09-23] MEDS ORDERED: HYDR-4514 PO (18:28)
[2020-09-23] MEDS ORDERED: CEPH500C PO (18:28)
== END 2020-09-23 15:22 | disposition home or self-care (01) ==
LOC: M OPP 12:24
PROVIDERS: ATTEND Internal Medicine Gastroenterology
DX: K57.30 Diverticulosis of large intestine without perforation or abscess without bleeding (principal); K64.0 First degree hemorrhoids; R63.4 Abnormal weight loss; R10.30 Lower abdominal pain, unspecified; K22.8 Other specified diseases of esophagus; K31.89 Other diseases of stomach and duodenum; R12 Heartburn; Z80.0 Family history of malignant neoplasm of digestive organs; Z87.891 Personal history of nicotine dependence; Z79.891 Long term (current) use of opiate analgesic; Z79.899 Other long term (current) drug therapy; Z88.5 Allergy status to narcotic agent

== ENCOUNTER 2020-09-23 15:46 | Inpatient (IN) | payer MEDICARE, OTHER ==
[~2020-09-23] VITALS: Ht 188 cm; Wt 88.5 kg
[2020-09-23] MEDS ORDERED: ONDA-83 PO (15:57)
[2020-09-23] MEDS: NS 1,000 ML IV SCH (18:17)
[2020-09-23] MEDS ORDERED: CEPH500C PO (18:28)
[2020-09-23] MEDS ORDERED: HYDR-4514 PO (18:28)
[2020-09-23 18:35] LABS: BASO % 0.3 % (0.0-1.0); EOS % 0.4 % (0.0-3.0); HEMATOCRIT 29.8 % (42.0-52.0); HEMOGLOBIN 9.5 g/dl (13.5-17.5); LYMPH # 0.9 10^3/uL (1.5-5.0); LYMPH % 9.3 % (24.0-44.0); MEAN CORPUSCULAR HEMOGLOBIN 28.3 pg (27.0-33.0); MEAN CORPUSCULAR HGB CONC 31.9 g/dl (32.0-36.5); MEAN CORPUSCULAR VOLUME 88.7 fl (80.0-96.0); MONO # 0.7 10^3/uL (0.0-0.8); NEUTROPHILS # 7.9 10^3/uL (1.5-8.5); NEUTROPHILS % 82.4 % (36.0-66.0); PLATELET COUNT, AUTOMATED 275 10^3/uL (150-450); RED BLOOD COUNT 3.36 10^6/uL (4.30-6.10); WHITE BLOOD COUNT 9.6 10^3/uL (4.0-10.0)
[2020-09-23 18:45] LABS: INR 1.18; PROTHROMBIN TIME 15.3 SECONDS (12.5-14.3)
[2020-09-23 19:00] LABS: ERYTHROCYTE SEDIMENTATION RATE 61 mm/hr (0-20)
[2020-09-23 19:05] LABS: ALBUMIN 2.6 GM/DL (3.2-5.2); BILIRUBIN,DIRECT 0.2 MG/DL (0.0-0.2); BILIRUBIN,TOTAL 0.6 MG/DL (0.2-1.0); TOTAL PROTEIN 5.6 GM/DL (6.4-8.2)
[2020-09-23] MEDS ORDERED: VANCOMYCIN HCL 750 MG, VIAL MATE ADAPTER 1 EACH in NS 250 ML IV SCH (19:35)
[2020-09-23] MEDS ORDERED: VANCOMYCIN HCL 750 MG, VIAL MATE ADAPTER 1 EACH in NS 250 ML IV ONE (19:45)
[2020-09-23] MEDS: SUCRALFATE 1 GM TAB PO SCH (21:00)
[2020-09-23] MEDS ORDERED: ACETAMINOPHEN TAB 650MG DOSE (2X325MG) PO PRN (21:05)
[2020-09-23] MEDS ORDERED: MOM 30ML SUSPENSION UDC PO PRN (21:05)
[2020-09-23] MEDS ORDERED: MAALOX 30 ML SUSP *UDC PO PRN (21:05)
--- NOTE | 2020-09-23 21:31 | HPEPDOC ---
[facility] Medical History & Physical Date of Admission Sep 23, 2020 Date of Service: Sep 23, 2020 History and Physical CHIEF COMPLAINT: L leg pain and swelling HISTORY OF PRESENT ILLNESS: 75 yo M with a hx of chronic back pain s/p vertebral fusion 1 mo ago, epigastric pain, anemia, presents to ER with a 4 day hx of L leg swelling, redness and pain. He was last seen in ER on 09/21/20, diagnosed with cellulitis and started on PO keflex. Venous duplex imaging ruled out DVT at the time. Mr. Yadav returns with worsening swelling and pain, particularly when walking. He denies fevers, chills, chest pain, n/v/d. He does not endorse recent trauma or abrasions to the leg, but states that he walks barefoot frequently. On arrival, T 97.4. HR 84. RR 19. BP 164/77. 97% O2 sat on RA. Labs reviewed, WBC 9.6. Hgb 9.5. PL 275. ESR 61. CRP 15.0. ALP 289. Blood cultures were sent from ER. Started on empiric vancomycin. Of note, patient underwent an EGD and colonoscopy by Dr. Wolfe today, as part of workup of chronic epigastric pain. Patient also denies melena, dark stools, blood in stool, hemoptysis, hematemsis or hematuria. PAST MEDICAL HISTORY: scoliosis chronic back pain anemia epigastric pain PAST SURGICAL HISTORY: Vertebral fusion 07/2020. SOCIAL HISTORY: former smoker, quit 40 years ago denies etoh use, denies illicits use FAMILY HISTORY: family history was reviewed with patient, denies pertinent family history ALLERGIES: Please see below. REVIEW OF SYSTEMS: A 10 point ROS was conducted, relevant findings are noted in the HPI HOME MEDICATIONS: Please see below. PHYSICAL EXAMINATION: VITAL SIGNS: please see below General: NAD, comfortable HEENT: PERRLA, EOMI, sclerae clear Neck: supple, normal ROM, no JVD Respiratory: lungs CTAB, no wheeze, no rales, no crackles CVS: RRR, normal S1, S2, no murmurs Abdo: soft, no masses, no hepatosplenomegaly, BS+, no rebound tenderness Extremities: significant swelling and erythema of the L leg, extending from lateral surface of foot, to above knee, demarcated by surgical marker. No weeping, no ulceration. MSK: no joint deformities, normal ROM Neuro: no focal neuro deficits, moving all 4 extremities, CN2-12 intact. Strength 5/5 in all 4 extremities. No nystagmus. Psych: calm, cooperative, AAO x 3 LABORATORY DATA: See below. IMAGING: Venous duplex LLE (09/21/20): FINDINGS: Ultrasound examination of the left lower extremity deep venous structures from the common femoral vein to the popliteal vein demonstrates normal compressibility flow and wave patterns in response to respiration and augmentation. There is no evidence for deep venous thrombosis. Subcutaneous edema and erythema primarily involving the calf noted. IMPRESSION: No evidence for deep venous thrombosis. MICROBIOLOGY: Please see below. ASSESSMENT:75 yo M with a hx of chronic back pain s/p vertebral fusion 1 mo ago, epigastric pain, anemia, presents to ER with a 4 day hx of L leg swelling, redness and pain. Admitted to hospitalist service for management of L lower extremity cellulitis. . PLAN: L leg non purulent cellulitis - failed PO therapy with keflex - no WBC elevation - elevated ESR 61, CRP 15.4 - venous duplex from 09/21/20 showed no DVT in the L leg - blood cultures x 2 sent from ER - started on vancomycin - compression stocking - elevate L leg. Anemia, weight loss - s/p EGD and colonscopy on 09/23/20 - EGD showing variable Z line, otherwise normal. Bx for h pylori and celiac taken - colonoscopy showed non bleeding internal hemorrhoids, diverticulosis, otherwise normal. - check iron level, b12, folate HTN - takes no medications at home - BP possibly elevated due to anxiety of ER - 2g sodium diet - repeat BP in am, consider starting therapy. Elevated ALP - no abdominal pain - check liver US Epigastric pain possible 2/2 GERD - s/p EGD and colonoscopy by Rr. Wolfe on 09/23/20 - biopsy results pending, will f/u oin clinic - resume PPI, sucralfate Chronic back pain s/p spinal fusion - resume home pain regimen DVT ppx: lovenox. SCDs. TEDs. Dispo: pending clinical improvement. Vital Signs Vital Signs Date Time Temp Pulse Resp B/P (MAP) Pulse Ox O2 Delivery O2 Flow Rate FiO2 09/23/20 18:04 16 09/23/20 15:47 97.4 84 97 Room Air Laboratory Data Labs 24H Laboratory Tests 2 09/23/20 17:52: C-Reactive Protein, Quantitative 15.40H 09/23/20 17:54: POC Glucose (Misc Panel) 95, POC Sodium (Misc Panel) 138, POC Potassium (Misc Panel) 3.8, POC Chloride (Misc Panel) 104, POC Total CO2 (Misc Panel) 25.0, POC Blood Urea Nitrogen (Misc Panel 13, POC Ionized Calcium (Misc Panel) 4.6, POC Creatinine (Misc Panel) 0.6, POC Hematocrit (Misc Panel) 32.0L 09/23/20 18:16: Immature Granulocyte % (Auto) 0.6, Neutrophils (%) (Auto) 82.4H, Lymphocytes (%) (Auto) 9.3L, Monocytes (%) (Auto) 7.0, Eosinophils (%) (Auto) 0.4, Basophils (%) (Auto) 0.3, Neutrophils # (Auto) 7.9, Lymphocytes # (Auto) 0.9L, Monocytes # (Auto) 0.7, Eosinophils # (Auto) 0.0, Basophils # (Auto) 0.0, Nucleated Red Blood Cells % (auto) 0.0, Erythrocyte Sedimentation Rate 61H 09/23/20 18:23: Prothrombin Time 15.3H, Prothromb Time International Ratio 1.18, Total Bilirubin 0.6, Direct Bilirubin 0.2, Aspartate Amino Transf (AST/SGOT) 18, Alanine Aminotransferase (ALT/SGPT) 26, Alkaline Phosphatase 289H, Total Protein 5.6L, Albumin 2.6L, Albumin/Globulin Ratio 0.9 CBC/BMP Laboratory Tests 09/23/20 18:16 Microbiology Microbiology 09/23/20 Respiratory Virus Panel (PCR) (MARGOTH) - Final, Complete 09/23/20 Blood Culture, Received Pending 09/23/20 Blood Culture, Received Pending Home Medications Scheduled Cephalexin (Cephalexin) 500 Mg Capsule, 500 MG PO QID Omeprazole (Omeprazole) 40 Mg Cap, 40 MG PO DAILY Sucralfate (Sucralfate) 1 Gm Tablet, 1 GM PO TID Scheduled PRN Hydrocodone/Acetaminophen (Hydrocodone-Acetamin 7.5-325) 1 Each Tablet, 1 TAB PO TID PRN for PAIN Ondansetron HCl (Ondansetron HCl) 4 Mg Tablet, 4 MG PO Q6H PRN for NAUSEA OR VOMITING Oxycodone HCl (Oxycodone HCl) 5 Mg Tablet, 5 MG PO TID PRN for BREAKTHROUGH PAIN Allergies Coded Allergies: morphine (Verified Adverse Reaction, Mild, vomiting, 09/18/20) A-FIB/CHADSVASC A-FIB History Current/History of A-Fib/PAF?: No Current PO Anticoag Therapy: No BALAJI RAGLAND MD Sep 23, 2020 21:31
[2020-09-23] MEDS: DOCUSATE SODIUM 100MG CAPSULE PO SCH (22:45)
[2020-09-23] MEDS ORDERED: VANCOMYCIN HCL 1,000 MG, VIAL MATE ADAPTER 1 EACH in NS 250 ML IV ONE (23:30)
[2020-09-24 00:50] VITALS: BP 151/77
[2020-09-24] MEDS: ANEXSIA, NORCO 7.5MG/325MG TABLET(HYDROCODONE/APAP) PO PRN ×2 (05:07→17:13)
[2020-09-24] MEDS: NS 1,000 ML IV SCH (05:07)
[2020-09-24 06:45] VITALS: BP 116/67
[2020-09-24 06:47] LABS: BASO % 0.3 % (0.0-1.0); EOS # 0.1 10^3/uL (0.0-0.5); EOS % 1.2 % (0.0-3.0); HEMATOCRIT 27.6 % (42.0-52.0); HEMOGLOBIN 8.8 g/dl (13.5-17.5); LYMPH # 0.8 10^3/uL (1.5-5.0); LYMPH % 11.4 % (24.0-44.0); MEAN CORPUSCULAR HEMOGLOBIN 28.3 pg (27.0-33.0); MEAN CORPUSCULAR HGB CONC 31.9 g/dl (32.0-36.5); MEAN CORPUSCULAR VOLUME 88.7 fl (80.0-96.0); MONO # 0.5 10^3/uL (0.0-0.8); MONO % 6.9 % (2.0-8.0); NEUTROPHILS # 5.3 10^3/uL (1.5-8.5); NEUTROPHILS % 79.8 % (36.0-66.0); PLATELET COUNT, AUTOMATED 253 10^3/uL (150-450); RED BLOOD COUNT 3.11 10^6/uL (4.30-6.10); WHITE BLOOD COUNT 6.7 10^3/uL (4.0-10.0)
[2020-09-24 07:20] LABS: ALBUMIN 2.1 GM/DL (3.2-5.2); ALT/SGPT 20 U/L (12-78); BILIRUBIN,TOTAL 0.6 MG/DL (0.2-1.0); BLOOD UREA NITROGEN 12 MG/DL (7-18); CALCIUM LEVEL 7.7 MG/DL (8.8-10.2); CARBON DIOXIDE LEVEL 26 MEQ/L (21-32); CHLORIDE LEVEL 111 MEQ/L (98-107); CREATININE FOR GFR 0.51 MG/DL (0.70-1.30); GLOMERULAR FILTRATION RATE > 60.0 (>42); GLUCOSE, FASTING 86 MG/DL (70-100); MAGNESIUM LEVEL 2.1 MG/DL (1.8-2.4); POTASSIUM SERUM 3.5 MEQ/L (3.5-5.1); SODIUM LEVEL 143 MEQ/L (136-145); TOTAL PROTEIN 4.8 GM/DL (6.4-8.2)
--- NOTE | 2020-09-24 07:43 | REP ---
INDICATION: elevated ALP. COMPARISON: None. TECHNIQUE: Multiple sonographic images of the abdominal right upper quadrant. FINDINGS: In there is no cholelithiasis, gallbladder wall thickening or pericholecystic fluid. There is no intrahepatic or extrahepatic biliary duct dilatation. The common biliary duct measures 6.7 mm in diameter. The hepatic parenchyma is homogeneous and otherwise unremarkable. There are no hepatic masses or cysts. Limited views of the pancreas are unremarkable. The right kidney measures 10.8 x 6.2 x 4.8 cm and is normal size. There is no right renal solid or cystic mass. There is no right renal calculus. There is right renal pelviectasis. The aorta is obscured. There is a trace of free intraperitoneal fluid in the abdominal right upper quadrant and right lower quadrant. IMPRESSION: The pancreas is partially obscured. There is a trace of free intraperitoneal fluid in the abdominal right upper quadrant and right lower quadrant. There is right renal pelviectasis. The hepatic parenchyma is unremarkable. <Electronically signed by Marciano Ryder > 09/24/20 07
[2020-09-24] MEDS: VANCOMYCIN HCL 1,000 MG, VIAL MATE ADAPTER 1 EACH in NS 250 ML IV SCH ×2 (08:45→17:13)
[2020-09-24] MEDS: SUCRALFATE 1 GM TAB PO SCH ×3 (08:45→20:19)
[2020-09-24] MEDS: DOCUSATE SODIUM 100MG CAPSULE PO SCH ×2 (08:46→20:19)
[2020-09-24] MEDS: OMEPRAZOLE 20 MG CAP PO SCH (08:46)
[2020-09-24] MEDS: oxyCODONE 5MG TAB PO PRN ×2 (08:47→14:17)
[2020-09-24] MEDS: ENOXAPARIN 40MG/0.4ML SYRINGE (J1650 PER 10MG) SC SCH (08:50)
[2020-09-24 11:47] LABS: FERRITIN 118 NG/ML (26-388); IRON (FE) 14 UG/DL (65-175); PERCENT SATURATION 7.4 % (19.7-50.0); TOTAL IRON BINDING CAPACITY 190 UG/DL (250-450)
--- NOTE | 2020-09-24 12:46 | IPNPDOC ---
Text Note Date of Service The patient was seen on 09/24/20. NOTE SUBJECTIVE: Patient was seen and examined this morning at bedside. He states his leg swelling has improved somewhat. He states he has some mild pain when moving his foot or when his leg is touch. No fevers overnight. OBJECTIVE: VITAL SIGNS: See below GENERAL: Alert, comfortable, in no acute distress HEENT: Normocephalic, atraumatic, sclera anicteric, moist mucous membranes CARDIOVASCULAR: Regular rate and rhythm, normal S1 and S2. No murmurs, rubs, or gallops RESPIRATORY: Clear to auscultation bilaterally with equal air entry bilaterally. No wheezing, rhonchi, or rales. ABDOMEN: Soft, nontender, nondistended, bowel sounds present EXTREMITIES: Pitting edema of the left LE up to the knee with some tenderness to palpation. Pulses 2+/4 in bilateral upper and lower extremities SKIN: Erythema of the left LE extending up from the foot to the upper calf, improved from prior marker line at the top of the calf. NEUROLOGIC: No focal deficits appreciated PSYCHIATRIC: Mood and affect appropriate ASSESSMENT/PLAN: 75 year old male with a hx of chronic back pain s/p vertebral fusion 1 mo ago, epigastric pain, anemia, presented with a 4 day history of left leg swelling, redness and pain. Admitted to hospitalist service for management of L lower extremity cellulitis. # L leg non purulent cellulitis - failed outpatient PO therapy with keflex - elevated ESR and CRP - venous duplex from 09/21/20 showed no DVT in the L leg - blood cultures x 2 pending - started on IV vancomycin day #2 - elevate L leg # Anemia - s/p EGD and colonscopy on 09/23/[address] Wolfe for abdominal pain - EGD showing variable Z line, otherwise normal. Bx for h pylori and celiac taken - Colonoscopy showed non bleeding internal hemorrhoids, diverticulosis, otherwise normal. - check iron studies - transfuse for Hg < 7.0 # Elevated BP in ER - improved this AM, continue to monitor during admission - 2g sodium diet # Mildly elevated ALP - no abdominal pain - GGT elevated suggesting liver as the source of ALP - Liver U/S unrevealing - Will trend during admission. F/U outpatient with PCP for repeat labs # Epigastric pain possible 2/2 GERD - s/p EGD and colonoscopy by Dr. Wolfe on 09/23/20 - biopsy results pending, will f/u outpatient with GI - continue home PPI, sucralfate # Chronic back pain s/p spinal fusion - resume home pain regimen DVT Prophylaxis: sc lovenox. DISPOSITION: pending clinical improvement, expect d/c home when ready Attending Attestation: Patient independently seen and examined. I have discussed in detail with the resident / student the findings and plan of treatment as documented by the resident / student. I agree with their findings and treatment plan and have edited their documentation. I will continue to follow the patient during this hospital stay. VS,Fishbone, I+O VS, Fishbone, I+O Laboratory Tests 09/23/20 18:16 09/24/20 06:04 Vital Signs Date Time Temp Pulse Resp B/P (MAP) Pulse Ox O2 Delivery O2 Flow Rate FiO2 09/24/20 09:17 18 Room Air 09/24/20 06:45 98.9 72 116/67 (83) 97 I&O- Last 24 Hours up to 6 AM 09/24/20 05:59 Intake Total 1145 ml Output Total 0 ml Balance 1145 ml BRANDON MANCIA D.O. Sep 24, 2020 12:46 ALESSANDRO RODLAN MD Sep 25, 2020 07:29
[2020-09-24 14:00] VITALS: BP 140/69
[2020-09-24 20:00] VITALS: BP 138/70
[2020-09-25] MEDS: VANCOMYCIN HCL 1,000 MG, VIAL MATE ADAPTER 1 EACH in NS 250 ML IV SCH ×2 (00:43→07:43)
[2020-09-25] MEDS: ANEXSIA, NORCO 7.5MG/325MG TABLET(HYDROCODONE/APAP) PO PRN ×4 (00:56→18:33)
[2020-09-25 05:35] VITALS: BP 132/69
[2020-09-25 06:41] LABS: BASO % 0.3 % (0.0-1.0); EOS # 0.2 10^3/uL (0.0-0.5); EOS % 2.5 % (0.0-3.0); HEMATOCRIT 29.5 % (42.0-52.0); HEMOGLOBIN 9.4 g/dl (13.5-17.5); LYMPH # 1.2 10^3/uL (1.5-5.0); LYMPH % 20.1 % (24.0-44.0); MEAN CORPUSCULAR HEMOGLOBIN 28.2 pg (27.0-33.0); MEAN CORPUSCULAR HGB CONC 31.9 g/dl (32.0-36.5); MEAN CORPUSCULAR VOLUME 88.6 fl (80.0-96.0); MONO # 0.4 10^3/uL (0.0-0.8); NEUTROPHILS # 4.2 10^3/uL (1.5-8.5); NEUTROPHILS % 69.6 % (36.0-66.0); PLATELET COUNT, AUTOMATED 294 10^3/uL (150-450); RED BLOOD COUNT 3.33 10^6/uL (4.30-6.10)
[2020-09-25 07:02] LABS: ALBUMIN 2.1 GM/DL (3.2-5.2); ALT/SGPT 25 U/L (12-78); BILIRUBIN,TOTAL 0.6 MG/DL (0.2-1.0); BLOOD UREA NITROGEN 11 MG/DL (7-18); CALCIUM LEVEL 7.8 MG/DL (8.8-10.2); CARBON DIOXIDE LEVEL 28 MEQ/L (21-32); CHLORIDE LEVEL 111 MEQ/L (98-107); CREATININE FOR GFR 0.56 MG/DL (0.70-1.30); GLOMERULAR FILTRATION RATE > 60.0 (>42); GLUCOSE, FASTING 84 MG/DL (70-100); MAGNESIUM LEVEL 2.2 MG/DL (1.8-2.4); SODIUM LEVEL 144 MEQ/L (136-145)
[2020-09-25] MEDS: OMEPRAZOLE 20 MG CAP PO SCH (07:43)
[2020-09-25] MEDS: DOCUSATE SODIUM 100MG CAPSULE PO SCH ×2 (07:43→21:57)
[2020-09-25] MEDS: SUCRALFATE 1 GM TAB PO SCH ×3 (07:43→21:56)
[2020-09-25] MEDS: ENOXAPARIN 40MG/0.4ML SYRINGE (J1650 PER 10MG) SC SCH (07:44)
[2020-09-25] MEDS: oxyCODONE 5MG TAB PO PRN ×3 (10:22→21:57)
[2020-09-25 14:00] VITALS: BP 137/71
--- NOTE | 2020-09-25 14:23 | IPNPDOC ---
Text Note Date of Service The patient was seen on 09/25/20. NOTE SUBJECTIVE: Patient was seen and examined this morning at bedside. He states he has noticed improvement in the redness and pain in his leg. He feels the swelling has not improved at much. He states he is having difficulty walking due to the swelling. OBJECTIVE: VITAL SIGNS: See below GENERAL: Alert, comfortable, in no acute distress HEENT: Normocephalic, atraumatic, sclera anicteric, moist mucous membranes CARDIOVASCULAR: Regular rate and rhythm, normal S1 and S2. No murmurs, rubs, or gallops RESPIRATORY: Clear to auscultation bilaterally with equal air entry bilaterally. No wheezing, rhonchi, or rales. ABDOMEN: Soft, nontender, nondistended, bowel sounds present EXTREMITIES: Pitting edema of the left LE up to the knee with mild tenderness to palpation. Pulses 2+/4 in bilateral upper and lower extremities SKIN: Erythema of the left LE has improved significantly. NEUROLOGIC: No focal deficits appreciated PSYCHIATRIC: Mood and affect appropriate ASSESSMENT/PLAN: 75 year old male with a hx of chronic back pain s/p vertebral fusion 1 mo ago, epigastric pain, anemia, presented with a 4 day history of left leg swelling, redness and pain. Admitted to hospitalist service for management of L lower extr emity cellulitis. # L leg non purulent cellulitis - failed outpatient PO therapy with keflex - elevated ESR and CRP - venous duplex from 09/21/20 showed no DVT in the L leg - blood cultures x 2 pending - started on IV vancomycin day #3 - elevate L leg. PT ordered for difficulty weight bearing. # Anemia - s/p EGD and colonscopy on 09/23/[address] Wolfe for abdominal pain - EGD showing variable Z line, otherwise normal. Bx for h pylori and celiac taken - Colonoscopy showed non bleeding internal hemorrhoids, diverticulosis, otherwise normal. - iron studies suggest iron deficiency, will start supplemental iron - transfuse for Hg < 7.0 # Elevated BP in ER - improved this AM, continue to monitor during admission - 2g sodium diet # Mildly elevated ALP - no abdominal pain - GGT elevated suggesting liver as the source of ALP - Liver U/S unrevealing - Will trend during admission. F/U outpatient with PCP for repeat labs # Epigastric pain possible 2/2 GERD - s/p EGD and colonoscopy by Dr. Wolfe on 09/23/20 - biopsy results pending, will f/u outpatient with GI - continue home PPI, sucralfate # Chronic back pain s/p spinal fusion - resume home pain regimen DVT Prophylaxis: sc lovenox. DISPOSITION: pending clinical improvement, expect d/c home when ready Attending Attestation: Patient independently seen and examined. I have discussed in detail with the resident / student the findings and plan of treatment as documented by the resident / student. I agree with their findings and treatment plan and have edited their documentation. I will continue to follow the patient during this hospital stay. VS,Fishbone, I+O VS, Fishbone, I+O Laboratory Tests 09/25/20 05:49 Vital Signs Date Time Temp Pulse Resp B/P (MAP) Pulse Ox O2 Delivery O2 Flow Rate FiO2 09/25/20 13:42 18 Room Air 09/25/20 05:35 97.7 63 132/69 (90) 97 I&O- Last 24 Hours up to 6 AM 09/25/20 06:00 Intake Total 1860 ml Output Total 0 ml Balance 1860 ml BRANDON MANCIA D.O. Sep 25, 2020 14:23 ALESSANDRO ROLDAN MD Sep 27, 2020 11:47
[2020-09-25 19:31] VITALS: BP 147/88
[2020-09-26] MEDS: ANEXSIA, NORCO 7.5MG/325MG TABLET(HYDROCODONE/APAP) PO PRN ×3 (03:09→21:27)
[2020-09-26 05:38] VITALS: BP 149/85
[2020-09-26] MEDS ORDERED: VANCOMYCIN HCL 1,000 MG, VIAL MATE ADAPTER 1 EACH in NS 250 ML IV SCH (06:00)
[2020-09-26 07:17] LABS: BASO % 0.5 % (0.0-1.0); EOS # 0.2 10^3/uL (0.0-0.5); EOS % 3.9 % (0.0-3.0); HEMATOCRIT 29.7 % (42.0-52.0); HEMOGLOBIN 9.4 g/dl (13.5-17.5); LYMPH # 1.2 10^3/uL (1.5-5.0); LYMPH % 21.3 % (24.0-44.0); MEAN CORPUSCULAR HEMOGLOBIN 28.2 pg (27.0-33.0); MEAN CORPUSCULAR HGB CONC 31.6 g/dl (32.0-36.5); MEAN CORPUSCULAR VOLUME 89.2 fl (80.0-96.0); MONO # 0.3 10^3/uL (0.0-0.8); MONO % 5.8 % (2.0-8.0); NEUTROPHILS % 68.2 % (36.0-66.0); PLATELET COUNT, AUTOMATED 339 10^3/uL (150-450); RED BLOOD COUNT 3.33 10^6/uL (4.30-6.10); WHITE BLOOD COUNT 5.8 10^3/uL (4.0-10.0)
[2020-09-26 07:42] LABS: ALBUMIN 2.1 GM/DL (3.2-5.2); ALT/SGPT 24 U/L (12-78); BILIRUBIN,TOTAL 0.5 MG/DL (0.2-1.0); BLOOD UREA NITROGEN 11 MG/DL (7-18); CALCIUM LEVEL 7.9 MG/DL (8.8-10.2); CARBON DIOXIDE LEVEL 27 MEQ/L (21-32); CHLORIDE LEVEL 109 MEQ/L (98-107); CREATININE FOR GFR 0.63 MG/DL (0.70-1.30); GLOMERULAR FILTRATION RATE > 60.0 (>42); GLUCOSE, FASTING 84 MG/DL (70-100); SODIUM LEVEL 142 MEQ/L (136-145)
[2020-09-26] MEDS: ENOXAPARIN 40MG/0.4ML SYRINGE (J1650 PER 10MG) SC SCH (09:00)
[2020-09-26] MEDS: OMEPRAZOLE 20 MG CAP PO SCH (09:18)
[2020-09-26] MEDS: SUCRALFATE 1 GM TAB PO SCH ×3 (09:18→21:26)
[2020-09-26] MEDS: DOCUSATE SODIUM 100MG CAPSULE PO SCH ×2 (09:18→21:26)
[2020-09-26] MEDS: oxyCODONE 5MG TAB PO PRN ×2 (09:22→17:41)
--- NOTE | 2020-09-26 13:29 | IPNPDOC ---
Text Note Date of Service The patient was seen on 09/26/20. NOTE SUBJECTIVE: Patient was seen and examined this morning at bedside. He states he is still bothered by the swelling in his left leg. He states that this is worst when he is up walking around. He does not feel comfortable at this point returning home. OBJECTIVE: VITAL SIGNS: See below GENERAL: Alert, comfortable, in no acute distress HEENT: Normocephalic, atraumatic, sclera anicteric, moist mucous membranes CARDIOVASCULAR: Regular rate and rhythm, normal S1 and S2. No murmurs, rubs, or gallops RESPIRATORY: Clear to auscultation bilaterally with equal air entry bilaterally. No wheezing, rhonchi, or rales. ABDOMEN: Soft, nontender, nondistended, bowel sounds present EXTREMITIES: Pitting edema of the left LE up to the knee with mild tenderness to palpation, improved from yesterday. Pulses 2+/4 in bilateral upper and lower extremities SKIN: Erythema of the left LE has improved significantly. NEUROLOGIC: No focal deficits appreciated PSYCHIATRIC: Mood and affect appropriate ASSESSMENT/PLAN: 75 year old male with a hx of chronic back pain s/p vertebral fusion 1 mo ago, epigastric pain, anemia, presented with a 4 day history of left leg swelling, redness and pain. Admitted to hospitalist service for management of L lower extremity cellulitis. # L leg non purulent cellulitis - failed outpatient PO therapy with keflex - elevated ESR and CRP on admission - venous duplex from 09/21/20 negative for DVT in the L leg - blood cultures x 2 negative - started on IV vancomycin, switching today to oral Bactrim, day #4 - elevate L leg. PT ordered for difficulty weight bearing. # Anemia - s/p EGD and colonscopy on 09/23/[address] Wolfe for abdominal pain - EGD showing variable Z line, otherwise normal. Bx for h pylori and celiac taken - Colonoscopy showed non bleeding internal hemorrhoids, diverticulosis, otherwise normal. - iron studies suggest iron deficiency, will start supplemental iron - H/H has been stable. transfuse for Hg < 7.0 # Elevated BP in ER - improved, continue to monitor during admission - 2g sodium diet # Mildly elevated ALP - no abdominal pain - GGT elevated suggesting liver as the source of ALP - Liver U/S unrevealing - Will trend during admission. F/U outpatient with PCP for repeat labs # Epigastric pain possible 2/2 GERD - s/p EGD and colonoscopy by Dr. Wolfe on 09/23/20 - will f/u outpatient with GI - continue home PPI, sucralfate # Chronic back pain s/p spinal fusion - resume home pain regimen DVT Prophylaxis: sc lovenox. DISPOSITION: pending clinical improvement, expect d/c home when ready Attending Attestation: Patient independently seen and examined. I have discussed in detail with the resident / student the findings and plan of treatment as documented by the resident / student. I agree with their findings and treatment plan and have edited their documentation. I will continue to follow the patient during this hospital stay. VS,Fishbone, I+O VS, Fishbone, I+O Laboratory Tests 09/26/20 06:38 Vital Signs Date Time Temp Pulse Resp B/P (MAP) Pulse Ox O2 Delivery O2 Flow Rate FiO2 09/26/20 11:44 18 09/26/20 05:38 97.4 63 149/85 (106) 98 Room Air I&O- Last 24 Hours up to 6 AM 09/26/20 06:00 Intake Total 1480 ml Output Total 0 ml Balance 1480 ml BRANDON MANCIA D.O. Sep 26, 2020 13:29 ALESSANDRO ROLDAN MD Sep 27, 2020 11:58
[2020-09-26 14:00] VITALS: BP 144/89
[2020-09-26 20:12] VITALS: BP 153/86
[2020-09-26] MEDS: BACTRIM 160MG/800MG DS TAB PO SCH (21:26)
[2020-09-27] MEDS: oxyCODONE 5MG TAB PO PRN ×2 (06:00→13:24)
[2020-09-27 06:02] VITALS: BP 156/84
[2020-09-27 07:00] LABS: BASO % 0.5 % (0.0-1.0); EOS # 0.3 10^3/uL (0.0-0.5); EOS % 4.3 % (0.0-3.0); HEMATOCRIT 30.7 % (42.0-52.0); HEMOGLOBIN 9.7 g/dl (13.5-17.5); LYMPH # 1.4 10^3/uL (1.5-5.0); LYMPH % 22.3 % (24.0-44.0); MEAN CORPUSCULAR HGB CONC 31.6 g/dl (32.0-36.5); MEAN CORPUSCULAR VOLUME 88.5 fl (80.0-96.0); MONO # 0.4 10^3/uL (0.0-0.8); MONO % 5.9 % (2.0-8.0); NEUTROPHILS # 4.1 10^3/uL (1.5-8.5); NEUTROPHILS % 66.7 % (36.0-66.0); PLATELET COUNT, AUTOMATED 363 10^3/uL (150-450); RED BLOOD COUNT 3.47 10^6/uL (4.30-6.10); WHITE BLOOD COUNT 6.1 10^3/uL (4.0-10.0)
[2020-09-27 07:30] LABS: ALBUMIN 2.2 GM/DL (3.2-5.2); ALT/SGPT 27 U/L (12-78); BILIRUBIN,TOTAL 0.4 MG/DL (0.2-1.0); BLOOD UREA NITROGEN 11 MG/DL (7-18); CALCIUM LEVEL 8.1 MG/DL (8.8-10.2); CARBON DIOXIDE LEVEL 27 MEQ/L (21-32); CHLORIDE LEVEL 108 MEQ/L (98-107); CREATININE FOR GFR 0.64 MG/DL (0.70-1.30); GLOMERULAR FILTRATION RATE > 60.0 (>42); GLUCOSE, FASTING 81 MG/DL (70-100); POTASSIUM SERUM 4.4 MEQ/L (3.5-5.1); SODIUM LEVEL 141 MEQ/L (136-145); TOTAL PROTEIN 5.4 GM/DL (6.4-8.2)
[2020-09-27] MEDS: SUCRALFATE 1 GM TAB PO SCH (08:20)
[2020-09-27] MEDS: DOCUSATE SODIUM 100MG CAPSULE PO SCH (08:20)
[2020-09-27] MEDS: BACTRIM 160MG/800MG DS TAB PO SCH (08:20)
[2020-09-27] MEDS: OMEPRAZOLE 20 MG CAP PO SCH (08:20)
[2020-09-27] MEDS: ANEXSIA, NORCO 7.5MG/325MG TABLET(HYDROCODONE/APAP) PO PRN (08:21)
[2020-09-27] MEDS: ENOXAPARIN 40MG/0.4ML SYRINGE (J1650 PER 10MG) SC SCH (09:00)
[2020-09-27] MEDS ORDERED: SULF1TAB23 PO (11:28)
--- NOTE | 2020-09-27 11:32 | DS.PDOC ---
Discharge Summary General Date of Admission Sep 24, 2020 at 13:43 Date of Discharge 09/27/20 Discharge Summary PROCEDURES PERFORMED DURING STAY: [None]. ADMITTING DIAGNOSES: 1. Cellulitis DISCHARGE DIAGNOSES: 1. Cellulitis COMPLICATIONS/CHIEF COMPLAINT: Ankle Swelling. HISTORY OF PRESENT ILLNESS: 75 yo M with a hx of chronic back pain s/p vertebral fusion 1 mo ago, epigastric pain, anemia, presents to ER with a 4 day hx of L leg swelling, redness and pain. He was last seen in ER on 09/21/20, diagnosed with cellulitis and started on PO keflex. Venous duplex imaging ruled out DVT at the time. He returned with worsening swelling and pain, particularly when walking. He denied fevers, chills, chest pain, n/v/d. He does not endorse recent trauma or abrasions to the leg, but states that he walks barefoot frequently. Of note, patient underwent an EGD and colonoscopy by Dr. Wolfe on day of admission, as part of workup of chronic epigastric pain. Patient also denied melena, dark stools, blood in stool, hemoptysis, hematemsis or hematuria. HOSPITAL COURSE: Patient was admitted for further evaluation and treatment. Cellulitis, possibly failed outpatient therapy with oral cephalosporin. He was started on IV vancomycin. His cellulitis improved left lower extremity was notably swollen with erythema. He was seen and evaluated by physical therapy and deemed safe to be discharged home from physical therapy standpoint. He was transitioned to oral antibiotics, and will be discharged on the same. # Anemia - s/p EGD and colonscopy on 09/23/[address] Wolfe for abdominal pain - EGD showing variable Z line, otherwise normal. Bx for h pylori and celiac taken - Colonoscopy showed non bleeding internal hemorrhoids, diverticulosis, otherwise normal. - iron studies suggest iron deficiency, will start supplemental iron - H/H has been stable # Elevated BP in ER - resolved, continue to monitor during admission - 2g sodium diet # Mildly elevated ALP - no abdominal pain - GGT elevated suggesting liver as the source of ALP - Liver U/S unrevealing - Will trend during admission. F/U outpatient with PCP for repeat labs # Epigastric pain possible 2/2 GERD - s/p EGD and colonoscopy by Dr. Wolfe on 09/23/20 - will f/u outpatient with GI - continue home PPI, sucralfate # Chronic back pain s/p spinal fusion - resume home pain regimen DISCHARGE MEDICATIONS: Please see below. ALLERGIES: Please see below. PHYSICAL EXAMINATION ON DISCHARGE: VITAL SIGNS: See below GENERAL: Alert, comfortable, in no acute distress HEENT: Normocephalic, atraumatic, sclera anicteric, moist mucous membranes CARDIOVASCULAR: Regular rate and rhythm, normal S1 and S2. No murmurs, rubs, or gallops RESPIRATORY: Clear to auscultation bilaterally with equal air entry bilaterally. No wheezing, rhonchi, or rales. ABDOMEN: Soft, nontender, nondistended, bowel sounds present EXTREMITIES: Pitting edema of the left LE up to the knee with mild tenderness to palpation, improved from yesterday. Pulses 2+/4 in bilateral upper and lower extremities SKIN: Erythema of the left LE has improved significantly. NEUROLOGIC: No focal deficits appreciated PSYCHIATRIC: Mood and affect appropriate LABORATORY DATA: Please see below. ACTIVITY: [As tolerated]. DISPOSITION: Discharge home. DISCHARGE INSTRUCTIONS: 1. Follow up PCP in 3-5 days. 2. Medications as directed. DISCHARGE CONDITION: [Stable]. TIME SPENT ON DISCHARGE: 35 minutes. Vital Signs/I&Os Vital Signs Date Time Temp Pulse Resp B/P (MAP) Pulse Ox O2 Delivery O2 Flow Rate FiO2 09/27/20 08:51 18 09/27/20 06:02 98.4 69 156/84 (108) 99 Room Air I&O- Last 24 Hours up to 6 AM 09/27/20 06:00 Intake Total 1300 ml Output Total 0 ml Balance 1300 ml Laboratory Data Labs 24H Laboratory Tests 2 09/27/20 06:05: Immature Granulocyte % (Auto) 0.3, Neutrophils (%) (Auto) 66.7H, Lymphocytes (%) (Auto) 22.3L, Monocytes (%) (Auto) 5.9, Eosinophils (%) (Auto) 4.3H, Basophils (%) (Auto) 0.5, Neutrophils # (Auto) 4.1, Lymphocytes # (Auto) 1.4L, Monocytes # (Auto) 0.4, Eosinophils # (Auto) 0.3, Basophils # (Auto) 0.0, Nucleated Red Blood Cells % (auto) 0.0, Anion Gap 6L, Glomerular Filtration Rate > 60.0, Tony cium Level 8.1L, Magnesium Level 2.0, Total Bilirubin 0.4, Aspartate Amino Transf (AST/SGOT) 20, Alanine Aminotransferase (ALT/SGPT) 27, Alkaline Phosphatase 306H, Total Protein 5.4L, Albumin 2.2L, Albumin/Globulin Ratio 0.7 CBC/BMP Laboratory Tests 09/27/20 06:05 Microbiology Microbiology 09/23/20 Respiratory Virus Panel (PCR) ([facility]ARGOTH) - Final, Complete 09/23/20 Blood Culture - Preliminary, Resulted No Growth after 72 hours. All specime... 09/23/20 Blood Culture - Preliminary, Resulted No Growth after 72 hours. All specime... Discharge Medications Scheduled Omeprazole (Omeprazole) 40 Mg Cap, 40 MG PO DAILY, (Reported) Sucralfate (Sucralfate) 1 Gm Tablet, 1 GM PO TID, (Reported) Sulfamethoxazole/Trimethoprim (Sulfamethoxazole-Tmp Ds Tablet) 800 Mg-160 Mg Tablet, 1 TAB PO BID Scheduled PRN Hydrocodone/Acetaminophen (Hydrocodone-Acetamin 7.5-325) 1 Each Tablet, 1 TAB PO TID PRN for PAIN, (Reported) Ondansetron HCl (Ondansetron HCl) 4 Mg Tablet, 4 MG PO Q6H PRN for NAUSEA OR VOMITING, (Reported) Oxycodone HCl (Oxycodone HCl) 5 Mg Tablet, 5 MG PO TID PRN for BREAKTHROUGH PAIN, (Reported) Allergies Coded Allergies: morphine (Verified Adverse Reaction, Mild, vomiting, 09/18/20) ALESSANDRO ROLDAN MD Sep 27, 2020 11:32
--- NOTE | 2020-09-27 12:52 | REP ---
INDICATION: eval dvt. COMPARISON: 09/21/2020 and 06/14/2018. TECHNIQUE: Duplex ultrasound of the left lower extremity veins. FINDINGS: The deep veins demonstrate normal compression, normal Doppler color flow and normal Doppler waveforms with respiration augmentation at multiple levels from the popliteal vein to the common femoral vein. IMPRESSION: There is no ultrasonographic evidence of deep vein thrombus in the left lower extremity. <Electronically signed by Marciano Ryder > 09/27/20 1247
[2020-09-28 19:06] LABS: SOLUBLE TRANSFERRIN RECEPTOR 22.3 nmol/L (12.2-27.3)
== END 2020-09-27 13:40 | disposition home or self-care (01) | DRG 603 ==
LOC: M ED 15:46 → EDBEDREQSVC 19:41 → M ED INP 21:03 → M MS5PR 09-24 00:41 → OBSVTOIN 09-24 13:43
PROVIDERS: ADMIT Family Medicine; ATTEND Internal Medicine
PROC: 0DB78ZX Excision of Stomach, Pylorus, Via Natural or Artificial Opening Endoscopic, Diagnostic (ICD-10-PCS; principal; 2020-09-23)
PROC: 0DB48ZX Excision of Esophagogastric Junction, Via Natural or Artificial Opening Endoscopic, Diagnostic (ICD-10-PCS; 2020-09-23)
PROC: 0DB98ZX Excision of Duodenum, Via Natural or Artificial Opening Endoscopic, Diagnostic (ICD-10-PCS; 2020-09-23)
PROC: 0DJD8ZZ Inspection of Lower Intestinal Tract, Via Natural or Artificial Opening Endoscopic (ICD-10-PCS; 2020-09-23)
DX: L03.116 Cellulitis of left lower limb (principal); R03.0 Elevated blood-pressure reading, without diagnosis of hypertension; M54.9 Dorsalgia, unspecified; K22.8 Other specified diseases of esophagus; R10.30 Lower abdominal pain, unspecified; R10.13 Epigastric pain; K64.0 First degree hemorrhoids; K57.30 Diverticulosis of large intestine without perforation or abscess without bleeding; D64.9 Anemia, unspecified; Z98.1 Arthrodesis status; K21.9 Gastro-esophageal reflux disease without esophagitis; Z87.891 Personal history of nicotine dependence; Z79.899 Other long term (current) drug therapy; Z88.5 Allergy status to narcotic agent

== ENCOUNTER → 2020-11-19 | Outpatient (CLI) | payer MEDICARE, OTHER ==
[~2020-11-19] MED LIST changes: +CEPH500C PO; +HYDR-4514 PO; +ONDA-83 PO; +SULF1TAB23 PO
--- NOTE | 2020-11-19 14:13 | REP ---
INDICATION: LT LEG VVI. COMPARISON: None. TECHNIQUE: Left {lower extremity duplex venous scanning is performed from the groin to the ankle level. FINDINGS: The deep veins are anechoic and fully compressible from the groin to the popliteal fossa in the left lower extremity. Color flow imaging is homogeneous. Spectral Doppler interrogation demonstrates intact respiratory variation in flow and normal manual augmentation of flow. There is no evidence of deep vein thrombosis above the knee. There is no evidence of DVT in the visualized calf veins. Doppler interrogation of the contralateral common femoral vein shows normal symmetric respiratory phasicity. Reflux evaluation left lower extremity: There is mild reflux in the greater saphenous vein, 1.2nd duration in the proximal greater saphenous vein segment where it measures 6.8 mm in diameter. The greater saphenous vein at mid thigh is 4.4 mm and at the knee 4.2 mm in diameter. Mild reflux greater than 0.5 seconds in duration is seen in the mid thigh and distal thigh femoral vein as well as in the common femoral vein segment. The lesser saphenous vein shows no evidence of reflux and measures 4.1 mm. IMPRESSION: No evidence of DVT in the left lower extremity femoropopliteal veins. No DVT in the visible portions of the calf veins. Minimal reflux in the proximal greater saphenous vein and in the femoral vein at mid thigh and at the knee. Minimal reflux greater than 0.5 seconds also seen in the common femoral vein segment. <Electronically signed by Paolo Amezcua > 11/19/20 9503
== END ==
LOC: M RAD 12:01
PROVIDERS: ATTEND Surgery
DX: I87.2 Venous insufficiency (chronic) (peripheral) (principal)

== ENCOUNTER → 2021-09-30 | Outpatient (CLI) | payer MEDICARE, OTHER ==
[~2021-09-30] MED LIST changes: +CYCL-707 PO; +DICY1CAP8 PO; +DULO1CAP6 PO; +HYDR12.55 PO; +OMEP40CA4 PO; -OMEP40CA97 PO
== END ==
LOC: M LABSMTC 10:41
PROVIDERS: ATTEND Anesthesiology
DX: Z01.812 Encounter for preprocedural laboratory examination (principal); Z20.822 Contact with and (suspected) exposure to COVID-19

== ENCOUNTER → 2021-12-02 | Outpatient (CLI) | payer MEDICARE, OTHER ==
[~2021-12-02] MED LIST changes: +HYDR-3715 PO
== END ==
LOC: M LAB 16:02 → M RAD 16:02
PROVIDERS: ATTEND Family Medicine
DX: M25.561 Pain in right knee (principal)

== ENCOUNTER → 2022-01-17 | Outpatient (CLI) | payer MEDICARE, OTHER | LOC: M WUC 11:03 | PROVIDERS: ATTEND Physician Assistant | DX: S13.4XXA Sprain of ligaments of cervical spine, initial encounter (principal); I65.23 Occlusion and stenosis of bilateral carotid arteries; M50.321 Other cervical disc degeneration at C4-C5 level; M50.322 Other cervical disc degeneration at C5-C6 level; M50.323 Other cervical disc degeneration at C6-C7 level; M62.830 Muscle spasm of back; X58.XXXA Exposure to other specified factors, initial encounter; Y92.9 Unspecified place or not applicable; Y93.9 Activity, unspecified; Y99.9 Unspecified external cause status ==

== ENCOUNTER → 2022-02-25 | Outpatient (CLI) | payer MEDICARE, OTHER | LOC: M PLARAD 10:59 | PROVIDERS: ATTEND Neurological Surgery | DX: M43.12 Spondylolisthesis, cervical region (principal); M25.78 Osteophyte, vertebrae ==

== ENCOUNTER 2022-12-13 10:26 | Emergency (ER) | payer MEDICARE, OTHER ==
[~2022-12-13] VITALS: Ht 190.5 cm; Wt 88.1 kg
[2022-12-13 12:24] LABS: BASO % 0.6 % (0.0-1.0); EOS # 0.1 10^3/uL (0.0-0.5); EOS % 2.2 % (0.0-3.0); HEMATOCRIT 37.7 % (42.0-52.0); HEMOGLOBIN 13.1 g/dl (13.5-17.5); LYMPH # 0.8 10^3/uL (1.5-5.0); MEAN CORPUSCULAR HEMOGLOBIN 31.2 pg (27.0-33.0); MEAN CORPUSCULAR HGB CONC 34.7 g/dl (32.0-36.5); MEAN CORPUSCULAR VOLUME 89.8 fl (80.0-96.0); MONO # 0.3 10^3/uL (0.0-0.8); NEUTROPHILS # 2.3 10^3/uL (1.5-8.5); NEUTROPHILS % 65.2 % (36.0-66.0); PLATELET COUNT, AUTOMATED 246 10^3/uL (150-450); WHITE BLOOD COUNT 3.6 10^3/uL (4.0-10.0)
[2022-12-13 12:42] LABS: LIPASE 18 U/L (12-53)
[2022-12-13 12:45] LABS: ALBUMIN 4.1 G/DL (3.2-5.2); ALKALINE PHOSPHATASE 111 U/L (46-116); ALT/SGPT 31 U/L (7.0-40); AST/SGOT 39 U/L (<34); BILIRUBIN,DIRECT 0.6 MG/DL (<0.4); BILIRUBIN,TOTAL 1.7 MG/DL (0.3-1.2); BLOOD UREA NITROGEN 16 MG/DL (9-23); CALCIUM LEVEL 9.1 MG/DL (8.3-10.6); CARBON DIOXIDE LEVEL 27 MMOL/L (20-31); CHLORIDE LEVEL 94 MMOL/L (98-107); CREATININE FOR GFR 0.83 MG/DL (0.70-1.30); GLOMERULAR FILTRATION RATE > 60.0 (>42); GLUCOSE, FASTING 102 MG/DL (74-106); POTASSIUM SERUM 3.4 MMOL/L (3.5-5.1); SODIUM LEVEL 129 MMOL/L (136-145); TOTAL PROTEIN 6.5 G/DL (5.7-8.2)
[2022-12-13] MEDS ORDERED: ISOVUE-370 76% 100ML VIAL As Ordered ONE (12:50)
[2022-12-13 13:02] LABS: CPK CREATINE PHOSPHOKINASE 170 U/L (46-171)
[2022-12-13 13:03] LABS: CK-MB VALUE MASS 4.5 NG/ML (<3.6); MB/CK RELATIVE INDEX 2.64 (< OR =4)
[2022-12-13 13:42] LABS: RSV AMPLIFICATION NEGATIVE (NEGATIVE)
[2022-12-13 13:48] LABS: CK-MB VALUE MASS 4.3 NG/ML (<3.6)
[2022-12-13 13:50] LABS: MB/CK RELATIVE INDEX 2.67 (< OR =4)
[2022-12-13 14:47] VITALS: BP 158/94
[2022-12-13] MEDS ORDERED: RA M1.74 PO (15:11)
[2022-12-13] MEDS ORDERED: SENO8.6T5 PO (15:11)
[2022-12-13 15:17] VITALS: TEMP 97.4; O2SAT 98
== END 2022-12-13 15:33 | disposition home or self-care (01) ==
LOC: M ED 10:26
DX: K59.00 Constipation, unspecified (principal); Z87.891 Personal history of nicotine dependence; Z79.899 Other long term (current) drug therapy; Z88.5 Allergy status to narcotic agent
CPT/HCPCS: 71045; 74177; 80048; 80076; 81001; 82550; 82553; 83605; 83690; 84484; 85025; 87040; 87631; 93005; 93041; 99285; Q9967

== ENCOUNTER → 2023-02-08 | Outpatient (CLI) | payer MEDICARE, OTHER ==
[~2023-02-08] MED LIST changes: +DICY-61; -DICY10CA13; +RA M1.74 PO; +SENO8.6T5 PO
== END ==
LOC: M PAIN 08:00
PROVIDERS: ATTEND Anesthesiology
DX: M54.81 Occipital neuralgia (principal); M79.10 Myalgia, unspecified site; M54.2 Cervicalgia; M96.1 Postlaminectomy syndrome, not elsewhere classified; I10 Essential (primary) hypertension; M19.90 Unspecified osteoarthritis, unspecified site; E78.5 Hyperlipidemia, unspecified; K58.9 Irritable bowel syndrome, unspecified; Z79.1 Long term (current) use of non-steroidal anti-inflammatories (NSAID); Z79.891 Long term (current) use of opiate analgesic; Z79.82 Long term (current) use of aspirin; Z79.899 Other long term (current) drug therapy; Z88.5 Allergy status to narcotic agent

== ENCOUNTER → 2023-03-28 | Outpatient (CLI) | payer MEDICARE, OTHER ==
[~2023-03-28] MED LIST changes: +TRIAMCINOLONE ACETONIDE SUSP 40MG/ML 1ML VIAL As Ordered ONE; +diazePAM 5MG TABLET As Ordered ONE; +oxyCODONE 5MG TAB As Ordered ONE
== END ==
LOC: M PAIN 14:15
PROVIDERS: ATTEND Anesthesiology
DX: M54.81 Occipital neuralgia (principal); G89.29 Other chronic pain; Z88.5 Allergy status to narcotic agent; Z79.82 Long term (current) use of aspirin; Z79.899 Other long term (current) drug therapy
CPT/HCPCS: 64405; 77003; J0665; J3301

== ENCOUNTER → 2023-05-09 | Outpatient (CLI) | payer MEDICARE, OTHER ==
[~2023-05-09] MED LIST changes: -TRIAMCINOLONE ACETONIDE SUSP 40MG/ML 1ML VIAL As Ordered ONE; -diazePAM 5MG TABLET As Ordered ONE; -oxyCODONE 5MG TAB As Ordered ONE
== END ==
LOC: M PAIN 14:15
PROVIDERS: ATTEND Nurse Practitioner Family
DX: M47.812 Spondylosis without myelopathy or radiculopathy, cervical region (principal); M54.81 Occipital neuralgia; G89.29 Other chronic pain; Z80.0 Family history of malignant neoplasm of digestive organs; Z80.1 Family history of malignant neoplasm of trachea, bronchus and lung; Z88.5 Allergy status to narcotic agent; Z79.82 Long term (current) use of aspirin; Z79.899 Other long term (current) drug therapy

== ENCOUNTER 2023-05-30 10:15 | Emergency (ER) | payer MEDICARE, OTHER ==
[~2023-05-30] VITALS: Ht 185.4 cm; Wt 85.3 kg
[2023-05-30] MEDS ORDERED: NS 500 ML IV ONE (13:05)
[2023-05-30 13:50] LABS: BASO % 0.3 % (0.0-1.0); EOS % 0.2 % (0.0-3.0); HEMATOCRIT 36.5 % (42.0-52.0); HEMOGLOBIN 12.6 g/dl (13.5-17.5); LYMPH # 0.9 10^3/uL (1.5-5.0); LYMPH % 8.9 % (24.0-44.0); MEAN CORPUSCULAR HEMOGLOBIN 32.2 pg (27.0-33.0); MEAN CORPUSCULAR HGB CONC 34.5 g/dl (32.0-36.5); MEAN CORPUSCULAR VOLUME 93.4 fl (80.0-96.0); MONO # 0.8 10^3/uL (0.0-0.8); MONO % 7.6 % (2.0-8.0); NEUTROPHILS # 8.2 10^3/uL (1.5-8.5); NEUTROPHILS % 82.8 % (36.0-66.0); PLATELET COUNT, AUTOMATED 225 10^3/uL (150-450); RED BLOOD COUNT 3.91 10^6/uL (4.30-6.10); WHITE BLOOD COUNT 9.9 10^3/uL (4.0-10.0)
[2023-05-30 14:16] LABS: BLOOD UREA NITROGEN 14 MG/DL (9-23); CALCIUM LEVEL 8.6 MG/DL (8.3-10.6); CARBON DIOXIDE LEVEL 26 MMOL/L (20-31); CHLORIDE LEVEL 100 MMOL/L (98-107); CREATININE FOR GFR 0.93 MG/DL (0.70-1.30); GLOMERULAR FILTRATION RATE > 60.0 (>42); GLUCOSE, FASTING 95 MG/DL (74-106); POTASSIUM SERUM 3.5 MMOL/L (3.5-5.1); SODIUM LEVEL 138 MMOL/L (136-145)
[2023-05-30] MEDS ORDERED: DALBAVANCIN 1,500 MG in D5W 250 ML IV ONE (14:30)
[2023-05-30 15:51] VITALS: BP 141/85; TEMP 100.1; O2SAT 95
== END 2023-05-30 15:53 | disposition home or self-care (01) ==
LOC: M ED 10:15
DX: L03.116 Cellulitis of left lower limb (principal); R22.42 Localized swelling, mass and lump, left lower limb; I10 Essential (primary) hypertension; K21.9 Gastro-esophageal reflux disease without esophagitis; Z87.891 Personal history of nicotine dependence; Z88.5 Allergy status to narcotic agent; Z79.02 Long term (current) use of antithrombotics/antiplatelets; Z79.83 Long term (current) use of bisphosphonates; Z79.899 Other long term (current) drug therapy
CPT/HCPCS: 80048; 83605; 85025; 85652; 86140; 87040; 93971; 96361; 96365; 99284; J0875

== ENCOUNTER → 2023-07-24 | Outpatient (REF) | payer MEDICARE, OTHER ==
[~2023-07-24] MED LIST changes: +IRBE150T27 PO; -IRBE150T7 PO
[2023-07-24 18:55] LABS: BLOOD UREA NITROGEN 18 MG/DL (9-23); CREATININE FOR GFR 0.88 MG/DL (0.70-1.30); GLOMERULAR FILTRATION RATE > 60.0 (>42)
== END ==
LOC: M LABWUC 18:00
PROVIDERS: ATTEND Surgery
DX: R59.0 Localized enlarged lymph nodes (principal)

== ENCOUNTER → 2023-07-26 | Outpatient (CLI) | payer MEDICARE, OTHER ==
[~2023-07-26] MED LIST changes: +GASTROGRAFIN SOLUTION 30ML As Ordered ONE; +ISOVUE-370 76% 100ML VIAL As Ordered ONE
== END ==
LOC: M RAD 11:59
PROVIDERS: ATTEND Surgery
DX: R59.0 Localized enlarged lymph nodes (principal); N28.1 Cyst of kidney, acquired; K80.20 Calculus of gallbladder without cholecystitis without obstruction; K40.20 Bilateral inguinal hernia, without obstruction or gangrene, not specified as recurrent
CPT/HCPCS: 74177; Q9963; Q9967

== ENCOUNTER → 2023-08-10 | Outpatient (CLI) | payer MEDICARE, OTHER ==
[~2023-08-10] MED LIST changes: -GASTROGRAFIN SOLUTION 30ML As Ordered ONE; -ISOVUE-370 76% 100ML VIAL As Ordered ONE; +ISOVUE-M 300 61% 15ML VIAL As Ordered ONE; +LIDOCAINE 1% SDV 30ML VIAL As Ordered ONE
== END ==
LOC: M PAIN 14:30
PROVIDERS: ATTEND Anesthesiology
DX: M47.812 Spondylosis without myelopathy or radiculopathy, cervical region (principal); G89.29 Other chronic pain; I10 Essential (primary) hypertension; Z79.02 Long term (current) use of antithrombotics/antiplatelets; Z79.1 Long term (current) use of non-steroidal anti-inflammatories (NSAID); Z79.891 Long term (current) use of opiate analgesic; Z79.899 Other long term (current) drug therapy; Z88.5 Allergy status to narcotic agent
CPT/HCPCS: 64490; 64491; J0665; Q9967

== ENCOUNTER → 2023-08-24 | Outpatient (CLI) | payer MEDICARE, OTHER ==
[~2023-08-24] MED LIST changes: -ISOVUE-M 300 61% 15ML VIAL As Ordered ONE; -LIDOCAINE 1% SDV 30ML VIAL As Ordered ONE
== END ==
LOC: M PAIN 16:00
PROVIDERS: ATTEND Anesthesiology
DX: M47.812 Spondylosis without myelopathy or radiculopathy, cervical region (principal); M79.10 Myalgia, unspecified site; M54.12 Radiculopathy, cervical region; I10 Essential (primary) hypertension; E78.5 Hyperlipidemia, unspecified; K58.9 Irritable bowel syndrome, unspecified; M19.90 Unspecified osteoarthritis, unspecified site; Z79.891 Long term (current) use of opiate analgesic; Z79.1 Long term (current) use of non-steroidal anti-inflammatories (NSAID); Z79.899 Other long term (current) drug therapy; Z88.5 Allergy status to narcotic agent

== ENCOUNTER → 2023-10-24 | Outpatient (CLI) | payer MEDICARE, OTHER ==
[~2023-10-24] MED LIST changes: +TRIAMCINOLONE ACETONIDE SUSP 40MG/ML 1ML VIAL As Ordered ONE; +diazePAM 5MG TABLET As Ordered ONE; +oxyCODONE 5MG TAB As Ordered ONE
== END ==
LOC: M PAIN 08:15
PROVIDERS: ATTEND Anesthesiology
DX: M79.12 Myalgia of auxiliary muscles, head and neck (principal); G89.29 Other chronic pain; I10 Essential (primary) hypertension; E78.5 Hyperlipidemia, unspecified; K58.9 Irritable bowel syndrome, unspecified; Z79.1 Long term (current) use of non-steroidal anti-inflammatories (NSAID); Z79.891 Long term (current) use of opiate analgesic; Z79.899 Other long term (current) drug therapy; Z88.5 Allergy status to narcotic agent
CPT/HCPCS: 20552; J0665; J3301

== ENCOUNTER → 2023-11-23 | Outpatient (CLI) | payer MEDICARE, OTHER ==
[~2023-11-23] MED LIST changes: -TRIAMCINOLONE ACETONIDE SUSP 40MG/ML 1ML VIAL As Ordered ONE; -diazePAM 5MG TABLET As Ordered ONE; -oxyCODONE 5MG TAB As Ordered ONE
== END ==
LOC: M PAIN 14:45
PROVIDERS: ATTEND Nurse Practitioner Family
DX: M79.12 Myalgia of auxiliary muscles, head and neck (principal); G89.29 Other chronic pain; I10 Essential (primary) hypertension; M19.90 Unspecified osteoarthritis, unspecified site; E78.5 Hyperlipidemia, unspecified; K58.9 Irritable bowel syndrome, unspecified; Z79.891 Long term (current) use of opiate analgesic; Z79.899 Other long term (current) drug therapy; Z88.5 Allergy status to narcotic agent

== ENCOUNTER 2024-09-09 08:56 | Inpatient (IN) | payer MEDICARE, OTHER ==
[2024-09-09] VITALS (11 sets, daily range): BP systolic 118–155; BP diastolic 56–97; TEMP 97.5–98.9; O2SAT 93–100
[~2024-09-09] VITALS: Ht 188 cm; Wt 79.1 kg
[2024-09-09 10:42] LABS: VENOUS BASE EXCESS 0.2 (-2.0-2.0); VENOUS HCO3 24.2 MMOL/L (23.0-27.0); VENOUS O2 SATURATION 72.5 % (60.0-80.0); VENOUS PARTIAL PRESSURE CO2 36.4 mmHg (38.0-50.0); VENOUS PARTIAL PRESSURE O2 41.6 mmHg (30.0-50.0); VENOUS PH 7.441 UNITS (7.330-7.430); VENOUS STANDARD HCO3 24.3 MMOL/L; VENOUS TOTAL CO2 25.3 MMOL/L (24.0-28.0)
[2024-09-09 10:48] LABS: BASO % 0.2 % (0.0-1.0); HEMATOCRIT 21.6 % (42.0-52.0); LYMPH # 0.6 10^3/uL (1.5-5.0); LYMPH % 11.8 % (24.0-44.0); MEAN CORPUSCULAR HEMOGLOBIN 29.7 pg (27.0-33.0); MEAN CORPUSCULAR HGB CONC 32.4 g/dl (32.0-36.5); MEAN CORPUSCULAR VOLUME 91.5 fl (80.0-96.0); MONO # 0.4 10^3/uL (0.0-0.8); NEUTROPHILS % 79.6 % (36.0-66.0); PLATELET COUNT, AUTOMATED 211 10^3/uL (150-450); RED BLOOD COUNT 2.36 10^6/uL (4.30-6.10)
[2024-09-09 10:58] LABS: INR 1.03; PROTHROMBIN TIME 13.8 SECONDS (12.5-14.5)
[2024-09-09 11:17] LABS: ALBUMIN 3.2 G/DL (3.2-5.2); ALKALINE PHOSPHATASE 94 U/L (40-129); ALT/SGPT 19 U/L (7.0-40); AST/SGOT 19 U/L (<34); BILIRUBIN,DIRECT 0.3 MG/DL (<0.4); BILIRUBIN,TOTAL 0.9 MG/DL (0.3-1.2); BLOOD UREA NITROGEN 57 MG/DL (9-23); CALCIUM LEVEL 8.9 MG/DL (8.3-10.6); CARBON DIOXIDE LEVEL 26 MMOL/L (20-31); CHLORIDE LEVEL 106 MMOL/L (98-107); CPK CREATINE PHOSPHOKINASE 54 U/L (46-171); CREATININE FOR GFR 0.79 MG/DL (0.70-1.30); GLOMERULAR FILTRATION RATE > 60.0 (>42); GLUCOSE, FASTING 116 MG/DL (74-106); POTASSIUM SERUM 3.9 MMOL/L (3.5-5.1); SODIUM LEVEL 139 MMOL/L (136-145)
[2024-09-09 11:18] LABS: CK-MB VALUE MASS < 1.0 NG/ML (<3.6); MB/CK RELATIVE INDEX 1.85 (< OR =4)
[2024-09-09 11:21] LABS: THYROID STIMULATING HORMONE 2.417 uIU/ML (0.55-4.78)
[2024-09-09 11:22] LABS: THYROXINE (T4) 4.3 UG/DL (4.5-10.9)
[2024-09-09] MEDS ORDERED: SENO8.6T5 PO (13:33)
[2024-09-09] MEDS ORDERED: APAP325T4 PO (13:33)
[2024-09-09] MEDS: GASTROGRAFIN SOLUTION 30ML PO SCH (13:36)
[2024-09-09] MEDS ORDERED: HOME MED LIST COMPLETE! XX SCH (13:40)
[2024-09-09] MEDS ORDERED: MAALOX 30 ML SUSP *UDC PO PRN (14:35)
[2024-09-09] MEDS ORDERED: MOM 30ML SUSPENSION UDC PO PRN (14:35)
[2024-09-09] MEDS ORDERED: ISOVUE-370 76% 100ML VIAL As Ordered ONE (14:57)
[2024-09-09 15:11] LABS: IRON (FE) 43 UG/DL (65-175); PERCENT SATURATION 12.3 % (19.7-50.0); TOTAL IRON BINDING CAPACITY 351 UG/DL (250-425)
[2024-09-09 15:14] LABS: FERRITIN 34.1 NG/ML (10.5-307.3)
[2024-09-09 15:15] LABS: CARCINOEMBRYONIC ANTIGEN < 2.0 NG/ML (<2.5)
[2024-09-09] MEDS: SUCRALFATE SUSP 1GM/10ML UD PO SCH (18:56)
[2024-09-09] MEDS: PANTOPRAZOLE 40MG VIAL IV SCH (21:25)
[2024-09-09] MEDS: ANEXSIA, NORCO 7.5MG/325MG TABLET(HYDROCODONE/APAP) PO ONE (23:24)
[2024-09-10 03:02] VITALS: BP 116/78; TEMP 98; O2SAT 99
[2024-09-10] MEDS: ACETAMINOPHEN 325 MG TAB PO ONE (05:28)
[2024-09-10 06:14] LABS: HEMATOCRIT 22.5 % (42.0-52.0); HEMOGLOBIN 7.5 g/dl (13.5-17.5); MEAN CORPUSCULAR HEMOGLOBIN 30.2 pg (27.0-33.0); MEAN CORPUSCULAR HGB CONC 33.3 g/dl (32.0-36.5); MEAN CORPUSCULAR VOLUME 90.7 fl (80.0-96.0); PLATELET COUNT, AUTOMATED 140 10^3/uL (150-450); RED BLOOD COUNT 2.48 10^6/uL (4.30-6.10)
[2024-09-10 06:42] LABS: ALBUMIN 2.7 G/DL (3.2-5.2); ALKALINE PHOSPHATASE 78 U/L (40-129); ALT/SGPT 14 U/L (7.0-40); AST/SGOT 21 U/L (<34); BLOOD UREA NITROGEN 35 MG/DL (9-23); CALCIUM LEVEL 8.5 MG/DL (8.3-10.6); CARBON DIOXIDE LEVEL 22 MMOL/L (20-31); CHLORIDE LEVEL 112 MMOL/L (98-107); CREATININE FOR GFR 0.81 MG/DL (0.70-1.30); GLOMERULAR FILTRATION RATE > 60.0 (>42); GLUCOSE, FASTING 91 MG/DL (74-106); POTASSIUM SERUM 4.1 MMOL/L (3.5-5.1); SODIUM LEVEL 143 MMOL/L (136-145); TOTAL PROTEIN 5.1 G/DL (5.7-8.2)
[2024-09-10] MEDS ORDERED: ANEXSIA, NORCO 7.5MG/325MG TABLET(HYDROCODONE/APAP) PO PRN (07:40)
[2024-09-10 07:49] VITALS: BP 131/80; TEMP 97.9; O2SAT 100
[2024-09-10] MEDS: ATORVASTATIN 20 MG TAB PO SCH (08:18)
[2024-09-10] MEDS: hydroCHLOROthiazide 12.5 MG CAPSULE PO SCH (08:18)
[2024-09-10] MEDS ORDERED: E-Z-PAQUE 96% w/w SUSP 176GM BTL As Ordered ONE (11:06)
[2024-09-10] MEDS ORDERED: E-Z-GAS II EFFERVESCENT PACKET (SODIUM BICARB./CITRIC ACID/SIMETHICONE) As Ordered ONE (11:06)
[2024-09-10 12:49] VITALS: BP 149/81; TEMP 97.6; O2SAT 99
[2024-09-10 15:39] VITALS: BP 135/85; TEMP 97.8; O2SAT 100
[2024-09-10 19:29] VITALS: BP 133/78; TEMP 97.5; O2SAT 98
[2024-09-10] MEDS: ACETAMINOPHEN 325 MG TAB PO PRN (20:21)
[2024-09-10 23:05] VITALS: BP 136/71; TEMP 98.6; O2SAT 97
[2024-09-11 03:29] VITALS: BP 140/84; TEMP 98; O2SAT 99
[2024-09-11 05:42] LABS: MEAN CORPUSCULAR HEMOGLOBIN 30.1 pg (27.0-33.0); MEAN CORPUSCULAR HGB CONC 33.3 g/dl (32.0-36.5); MEAN CORPUSCULAR VOLUME 90.2 fl (80.0-96.0); PLATELET COUNT, AUTOMATED 147 10^3/uL (150-450); RED BLOOD COUNT 2.66 10^6/uL (4.30-6.10); WHITE BLOOD COUNT 2.9 10^3/uL (4.0-10.0)
[2024-09-11 06:09] LABS: ALBUMIN 2.8 G/DL (3.2-5.2); ALKALINE PHOSPHATASE 87 U/L (40-129); ALT/SGPT 19 U/L (7.0-40); AST/SGOT 24 U/L (<34); BILIRUBIN,TOTAL 0.9 MG/DL (0.3-1.2); BLOOD UREA NITROGEN 21 MG/DL (9-23); CALCIUM LEVEL 8.5 MG/DL (8.3-10.6); CARBON DIOXIDE LEVEL 24 MMOL/L (20-31); CHLORIDE LEVEL 109 MMOL/L (98-107); CREATININE FOR GFR 0.82 MG/DL (0.70-1.30); GLOMERULAR FILTRATION RATE > 60.0 (>42); GLUCOSE, FASTING 99 MG/DL (74-106); POTASSIUM SERUM 3.8 MMOL/L (3.5-5.1); SODIUM LEVEL 141 MMOL/L (136-145); TOTAL PROTEIN 5.3 G/DL (5.7-8.2)
[2024-09-11 07:27] VITALS: BP 109/62; TEMP 98.6; O2SAT 97
[2024-09-11 07:58] VITALS: BP 136/70; TEMP 98.7; O2SAT 100
[2024-09-11 11:39] VITALS: BP 115/80; TEMP 99.2; O2SAT 99
[2024-09-11] MEDS ORDERED: PANT40TA29 PO (12:22)
[2024-09-11] MEDS ORDERED: SUCR1TA PO (12:22)
[2024-09-11] MEDS ORDERED: FERR325T3 PO (12:40)
[2024-09-11] MEDS ORDERED: COLA100C5 PO (12:40)
[2024-09-12 02:37] LABS: PROTEIN, TOTAL SO 5.8 g/dL (6.1-8.1)
== END 2024-09-11 13:57 | disposition home or self-care (01) | DRG 379 ==
LOC: M ED 08:56 → M ED INP 14:33 → M PCU 20:15
PROVIDERS: ADMIT Student in an Organized Health Care Education/Training Program; ATTEND Internal Medicine
PROC: 30233N1 Transfusion of Nonautologous Red Blood Cells into Peripheral Vein, Percutaneous Approach (ICD-10-PCS; principal; 2024-09-09)
DX: K29.71 Gastritis, unspecified, with bleeding (principal); D50.0 Iron deficiency anemia secondary to blood loss (chronic); R63.4 Abnormal weight loss; M17.0 Bilateral primary osteoarthritis of knee; Z96.651 Presence of right artificial knee joint; F10.10 Alcohol abuse, uncomplicated; Z87.891 Personal history of nicotine dependence; Z88.5 Allergy status to narcotic agent; Z79.899 Other long term (current) drug therapy